=== PATIENT | female | born 2005 | race Caucasian/White ===

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

== ENCOUNTER 2024-05-31 23:06 | Emergency (ER) | payer OTHER, SELFPAY ==
[2024-05-31 23:34] VITALS: BP 114/53; PULSE 62; RESP 16; TEMP 36.6; O2SAT 99; BMI 30.2
[2024-06-01 00:21] LABS: MANUAL DIFF FLAG NO
[2024-06-01 00:22] LABS: Basophils Absolute Auto 0.1 X10*3/uL (0.0-0.2); Basophils Percent Auto 0.5 % (0-2); Eosinophils Absolute Auto 0.3 X10*3/uL (0.0-0.4); Eosinophils Percent Auto 3.2 % (0-4); Hematocrit 37.4 % (37.0-47.0); Hemoglobin 12.9 g/dl (12.0-16.0); Imm Gran Abs Auto 0.02 X10*3/uL (0.00-0.03); Imm Gran Pct Auto 0.2 % (0.0-0.4); Lymphocytes Absolute Auto 1.7 X10*3/uL (1.2-4.9); Lymphocytes Percent Auto 18.2 % (20-40); Mean Corpuscular HGB Conc 34.5 g/dl (31.0-35.0); Mean Corpuscular Hemoglobin 30.6 pg (27.0-33.0); Mean Corpuscular Volume 88.8 fL (80.0-98.0); Mean Platelet Volume 9.7 fL (9.4-12.3); Monocytes Absolute Auto 0.3 X10*3/uL (0.1-1.2); Monocytes Percent Auto 3.6 % (2-11); Neutrophils Absolute Auto 6.8 x10*3/uL (2.0-8.3); Neutrophils Percent Auto 74.3 % (45-73); Platelet Count 259 X10*3/uL (160-400); Red Blood Count 4.21 X10*6/uL (4.20-5.50); Red Cell Distribution Width 11.9 % (11.0-16.0); White Blood Count 9.1 X10*3/uL (4.8-10.8)
[2024-06-01 00:58] LABS: Alanine Aminotransferase 19 U/L (0-31); Albumin Level 4.3 g/dL (3.5-5.0); Alkaline Phosphatase 65 U/L (39-117); Anion Gap 14 (12-20); Aspartate Amino Transferase 20 U/L (5-31); Bilirubin Total 0.4 mg/dL (0.0-1.0); Blood Urea Nitrogen 20 mg/dL (9-16); Calcium 9.8 mg/dL (8.4-10.2); Carbon Dioxide 23 mmol/L (22-29); Chloride 109 mmol/L (96-108); Creatinine Clr Calc Pharmacy 93.3; Estimated Glomerular Filt Rate > 60; Glucose Random 108 mg/dL (60-115); Lipase 28 U/L (8-78); Potassium 4.1 mmol/L (3.3-5.1); Sodium 142 mmol/L (135-145); Total Protein 7.6 g/dL (6.5-8.0)
[2024-06-01 01:02] LABS: HCG Quantitative < 2 mIU/mL
--- NOTE | 2024-06-01 01:06 | MHC.EDTECH ---
this tech assumed care @[id number]
[2024-06-01 01:07] LABS: Color Urine Yellow; Glucose Urine UA Negative (Negative); Leukocyte Esterase Urine Negative (Negative); Nitrite Urine Negative (Negative); PH 6.5 (5.0-9.0); Specific Gravity - Urine >= 1.030 (1.005-1.025); Urine Blood Negative (Negative); Urine Ketones 40 mg/dL (Negative); Urine Protein Negative (Neg-Trace)
[2024-06-01 01:08] LABS: Appearance Urine Clear
[2024-06-01 01:09] LABS: Bacteria Urine None Seen (None Seen); Hyaline Casts Urine 0-2 /LPF (0-2); RBC Urine 0-2 /HPF (0-2); Squamous Epithelial Cell Urine 0-2 /HPF (0-2); WBC Urine 0-5 /HPF (0-5)
--- NOTE | 2024-06-01 01:25 | PC.NURSE ---
[facility] pharmacy called x2 dt pyxsis issues. Not populating second bag of potassium. tw has to override to remove second bag
[2024-06-01 01:28] VITALS: BP 109/60; PULSE 68; RESP 17; TEMP 36.6; O2SAT 97
--- NOTE | 2024-06-01 01:34 | MHC.EDTECH ---
pt changed over and placed on environmental monitoring specialist r/t her abdominal pain
--- NOTE | 2024-06-01 01:42 | PC.NURSE ---
pt sitting comfortable in no acute distress. vss. reports last vomiting 2 hours ago. Has not vomited since. no bout of diarrheas.
--- NOTE | 2024-06-01 01:46 | ED_ITS ---
HPI - Abdominal Pain General Chief Complaint: Abdominal Pain Stated Complaint: stomach pain Time Seen by Provider: 06/01/24 01:45 Source: patient Mode of arrival: ambulatory Limitations: no limitations History of Present Illness ED Provider: HPI narrative: Patient complaining of epigastric pain after eating spaghetti at 20:30 vomited 4 times no history of similar pain in the past took Pepto-Bismol with no relief Related Data Previous Rx's ?Medication ?Instructions ?Recorded pantoprazole 20 mg tablet,delayed 20 mg PO DAILY #14 tabs 03/03/21 release (Protonix) omeprazole 20 mg capsule,delayed 20 mg PO DAILY #30 caps 06/01/24 release Allergies Allergy/AdvReac Type Severity Reaction Status Date / Time No Known Allergies Allergy Verified 05/31/24 23:37 Review of Systems Review of Systems Yes all other systems are reviewed and are negative [facility] Social History Social History Alcohol intake: never Patient Tobacco Use Status: Never used Tobacco Smoked in Last 30 Days: No Use of substances other than those prescribed or required for medical reasons: Yes Substance Use Type: Marijuana Last Used Substance: Days (ago) Advance Directives: No Advance Directives Information Provided: No Patient : No Physical Exam ED Vital Signs: Vital Signs - 24 hr 05/31/24 23:34 06/01/24 01:28 Temperature 97.9 F 97.9 F Pulse Rate 62 68 Respiratory Rate 16 17 Blood Pressure 114/53 L 109/60 Pulse Oximetry 99 97 Oxygen Delivery Method Room Air Room Air BMI result Body Mass Index 30.2 Appearance: Alert. Oriented X3. No acute distress. Eyes: No pallor or ENT: Pharynx normal. Oral Mucosa moist Neck: Normal inspection. Neck supple. CVS: Normal heart rate and rhythm. Pulses normal. Respiratory: No respiratory distress. Equal air entry bilateral, no wheezing/rales/rhonchi Abdomen: Soft and tenderness in epigastric right upper quadrant Bowel sounds are present, no mass palpable, no CVA tenderness Hernandez sign negative Skin: Skin warm and dry. Normal skin color. Normal skin turgor. Extremities: No lower extremity edema. No calf tenderness Neuro: Oriented X 3. No motor deficit. Medical Decision Making Medical Decision Making [facility] Narrative: Patient with epigastric pain with history of gastritis no history of gallstones bedside ultrasound was done no gallstones were seen no gallbladder thickening no tenderness while examining the gallbladder likely patient has had gastritis will discharge patient home on Prilosec Differential Diagnosis Differential Diagnoses: The differential diagnosis associated with the presentation includes Gastritis/pancreatitis/cholelithiasis Lab Data MDM Lab Attestation statement: I reviewed the patient's lab results. 06/01/24 00:17 06/01/24 00:17 Labs: Lab Results 06/01/24 06/01/24 Range/Units 00:17 00:48 WBC 9.1 (4.8-10.8) X10*3/uL RBC 4.21 (4.20-5.50) X10*6/uL Hgb 12.9 (12.0-16.0) g/dl Hct 37.4 (37.0-47.0) % MCV 88.8 (80.0-98.0) fL MCH 30.6 (27.0-33.0) pg MCHC 34.5 (31.0-35.0) g/dl RDW 11.9 (11.0-16.0) % Plt Count 259 (160-400) X10*3/uL MPV 9.7 (9.4-12.3) fL Immature Gran % (Auto) 0.2 (0.0-0.4) % Neut % (Auto) 74.3 H (45-73) % Lymph % (Auto) 18.2 L (20-40) % [place] % (Auto) 3.6 (2-11) % Eos % (Auto) 3.2 (0-4) % Baso % (Auto) 0.5 (0-2) % Lymph # (Auto) 1.7 (1.2-4.9) X10*3/uL [place] # (Auto) 0.3 (0.1-1.2) X10*3/uL Eos # (Auto) 0.3 (0.0-0.4) X10*3/uL Baso # (Auto) 0.1 (0.0-0.2) X10*3/uL Abs Immat Gran (auto) 0.02 (0.00-0.03) X10*3/uL Absolute Neuts (auto) 6.8 (2.0-8.3) x10*3/uL Absolute Nucleated RBC 0.000 (0.0-0.012) X10*3/uL Nucleated RBC % (auto) 0.0 (0.0-0.2) /100WBC Sodium 142 (135-145) mmol/L Potassium 4.1 (3.3-5.1) mmol/L Chloride 109 H (96-108) mmol/L Carbon Dioxide 23 (22-29) mmol/L Anion Gap 14 (12-20) BUN 20 H (9-16) mg/dL Creatinine 0.91 (0.5-1.4) mg/dL Estim Creat Clear Calc 93.3 Estimated GFR > 60 Random Glucose 108 (60-115) mg/dL Calcium 9.8 (8.4-10.2) mg/dL Total Bilirubin 0.4 (0.0-1.0) mg/dL AST 20 (5-31) U/L ALT 19 (0-31) U/L Alkaline Phosphatase 65 (39-117) U/L Total Protein 7.6 (6.5-8.0) g/dL Albumin 4.3 (3.5-5.0) g/dL Lipase 28 (8-78) U/L Beta HCG, Quant < 2 mIU/mL Urine Color Yellow Urine Appearance Clear Urine pH 6.5 (5.0-9.0) Ur Specific [place] >= 1.030 H (1.005-1.025) Urine Protein Negative (Neg-Trace) mg/dL Urine Glucose (UA) Negative (Negative) mg/dL Urine Ketones 40 (Negative) mg/dL Urine Blood Negative (Negative) Urine Nitrite Negative (Negative) Ur Leukocyte Esterase Negative (Negative) Urine RBC 0-2 (0-2) /HPF Urine WBC 0-5 (0-5) /HPF Ur Squamous Epith Cells 0-2 (0-2) /HPF Urine Bacteria None Seen (None Seen) Hyaline Casts 0-2 (0-2) /LPF Discharge Plan Discharge Clinical Impression: Acute gastritis Patient Disposition: Home, Self-Care Instructions: Gastritis (ED) Additional Instructions: Likely have gastritis no gallstones were seen in the ultrasound at bedside Drink plenty of fluids avoid fried foods Take acid medication as prescribed Prescriptions: New omeprazole 20 mg capsule,delayed release(DR/EC) 20 mg PO DAILY Qty: 30 0RF No Action pantoprazole [Protonix] 20 mg tablet,delayed release (DR/EC) 20 mg PO DAILY Qty: 14 0RF Print Language: Nigerien
[2024-06-01] MEDS: Magnesium Hydrox/Alum Hydrox 30 ML ORAL.SUSP PO (02:28)
[2024-06-01 02:30] VITALS: BP 102/61; PULSE 67; RESP 18; TEMP 36.4; O2SAT 100
== END 2024-06-01 02:44 | disposition home or self-care (01) ==
PROVIDERS: Emergency Provider Internal Medicine; PCP Pediatrics
DX: K29.70 Gastritis, unspecified, without bleeding (principal); R10.13 Epigastric pain; R11.10 Vomiting, unspecified
CPT/HCPCS: 36415; 80053; 81001; 83690; 84702; 85025; 99283; 99284

== ENCOUNTER 2024-06-04 20:45 | Emergency (ER) | payer OTHER, SELFPAY ==
--- NOTE | ~2024-06-04 | US_ITS ---
EXAMINATION: US ABDOMEN LIMITED CLINICAL INFORMATION: Abdominal pain. COMPARISON: None available. TECHNIQUE: Real-time imaging of the right upper quadrant abdominal viscera. FINDINGS: PANCREAS: Visualized portions are unremarkable. LIVER: The liver is normal in size. The liver contour is normal. Parenchymal echogenicity is normal. No focal hepatic lesion. There is no intrahepatic biliary duct dilatation seen. GALLBLADDER: The gallbladder is physiologically distended without evidence of stones, sludge, wall thickening or pericholecystic fluid. There is a 3 mm echogenic nonshadowing structure adherent to the gallbladder wall. COMMON BILE DUCT: Normal in caliber measuring 0.4 cm in diameter. RIGHT KIDNEY: No hydronephrosis. No renal calculi or focal parenchymal lesions. The kidney measures 10.1 cm in maximum dimension. FREE FLUID: None. US/US abdomen limited IMPRESSION: No gallstones or evidence for cholecystitis. 3 mm echogenic structure adherent to the gallbladder wall suggesting gallbladder polyp. Electronically signed by: Satish Wells MD 06/05/2024 12:33 AM GEM
[2024-06-04 21:02] VITALS: BP 127/66; PULSE 83; RESP 16; TEMP 36.6; O2SAT 97; BMI 28.5
[2024-06-04 21:18] LABS: MANUAL DIFF FLAG NO
[2024-06-04 21:19] LABS: Basophils Percent Auto 0.3 % (0-2); Eosinophils Absolute Auto 0.2 X10*3/uL (0.0-0.4); Eosinophils Percent Auto 2.9 % (0-4); Hematocrit 36.6 % (37.0-47.0); Hemoglobin 12.8 g/dl (12.0-16.0); Imm Gran Abs Auto 0.03 X10*3/uL (0.00-0.03); Imm Gran Pct Auto 0.4 % (0.0-0.4); Lymphocytes Percent Auto 25.7 % (20-40); Mean Corpuscular Hemoglobin 31.1 pg (27.0-33.0); Mean Corpuscular Volume 89.1 fL (80.0-98.0); Mean Platelet Volume 9.7 fL (9.4-12.3); Monocytes Absolute Auto 0.4 X10*3/uL (0.1-1.2); Monocytes Percent Auto 4.5 % (2-11); Neutrophils Absolute Auto 5.3 x10*3/uL (2.0-8.3); Neutrophils Percent Auto 66.2 % (45-73); Platelet Count 261 X10*3/uL (160-400); Red Blood Count 4.11 X10*6/uL (4.20-5.50); Red Cell Distribution Width 11.9 % (11.0-16.0); White Blood Count 7.9 X10*3/uL (4.8-10.8)
[2024-06-04 21:43] LABS: Alanine Aminotransferase 15 U/L (0-31); Albumin Level 4.3 g/dL (3.5-5.0); Alkaline Phosphatase 63 U/L (39-117); Anion Gap 11 (12-20); Aspartate Amino Transferase 17 U/L (5-31); Bilirubin Total 0.5 mg/dL (0.0-1.0); Blood Urea Nitrogen 12 mg/dL (9-16); Calcium 8.8 mg/dL (8.4-10.2); Carbon Dioxide 24 mmol/L (22-29); Chloride 108 mmol/L (96-108); Creatinine Clr Calc Pharmacy 85.2; Estimated Glomerular Filt Rate > 60; Glucose Random 106 mg/dL (60-115); Lipase 33 U/L (8-78); Magnesium 1.9 mg/dL (1.6-2.6); Potassium 3.5 mmol/L (3.3-5.1); Sodium 139 mmol/L (135-145); Total Protein 7.4 g/dL (6.5-8.0)
[2024-06-04 21:44] LABS: HCG Quantitative < 2 mIU/mL
[2024-06-04 22:02] LABS: Appearance Urine Clear; Color Urine Yellow; Glucose Urine UA Negative (Negative); Leukocyte Esterase Urine Negative (Negative); Nitrite Urine Negative (Negative); PH 6.5 (5.0-9.0); Urine Blood Negative (Negative); Urine Ketones Negative (Negative); Urine Protein Negative (Neg-Trace)
[2024-06-04 22:30] VITALS: BP 122/65; PULSE 78; RESP 20; TEMP 36.6; O2SAT 100
--- NOTE | 2024-06-04 22:34 | ED.ABDPAIN ---
HPI - Abdominal Pain General Chief Complaint: Abdominal Pain Stated Complaint: Abd Pain Time Seen by Provider: 06/04/24 22:22 Source: patient Mode of arrival: ambulatory Limitations: no limitations History of Present Illness ED Provider: HPI narrative: Patient's history of gastritis in the past not taking any medication was seen here 4 days ago for epigastric pain started on omeprazole and sucralfate patient continued to have pain in upper abdomen bedside ultrasound was done which was negative for gallstones no fever no chills no urinary symptoms Related Data Previous Rx's ?Medication ?Instructions ?Recorded pantoprazole 20 mg tablet,delayed 20 mg PO DAILY #14 tabs 03/03/21 release (Protonix) omeprazole 20 mg capsule,delayed 20 mg PO DAILY #30 caps 06/01/24 release omeprazole 40 mg capsule,delayed 40 mg PO DAILY #30 caps 06/04/24 release ondansetron 4 mg disintegrating 4 mg PO Q6-8H PRN nausea and 06/04/24 tablet vomiting #15 tabs Allergies Allergy/AdvReac Type Severity Reaction Status Date / Time No Known Allergies Allergy Verified 06/04/24 21:09 Review of Systems Review of Systems Yes all other systems are reviewed and are negative [facility] Social History Social History Alcohol intake: never Patient Tobacco Use Status: Never used Tobacco Smoked in Last 30 Days: No Substance Use Type: Marijuana Substance Use Frequency: Weekly Advance Directives: No Advance Directives Information Provided: Yes Do you have a plan to hurt others: No Plan Patient : No Physical Exam ED Vital Signs: Vital Signs - 24 hr 06/04/24 21:02 06/04/24 22:30 06/04/24 23:52 Temperature 97.8 F 97.9 F 98.5 F Pulse Rate 83 78 63 Respiratory Rate 16 20 16 Blood Pressure 127/66 122/65 109/72 Pulse Oximetry 97 100 99 Oxygen Delivery Method Room Air Room Air Room Air 06/05/24 00:26 Temperature 98.5 F Pulse Rate 63 Respiratory Rate 16 Blood Pressure 109/72 Pulse Oximetry 99 Oxygen Delivery Method Room Air BMI result Body Mass Index 28.5 Appearance: Alert. Oriented X3. No acute distress. Eyes: No pallor or icterus ENT: Pharynx normal. Oral Mucosa moist Neck: Normal inspection. Neck supple. CVS: Normal heart rate and rhythm. Pulses normal. Respiratory: No respiratory distress. Equal air entry bilateral, no wheezing/rales/rhonchi Abdomen: Soft and tenderness right upper quadrant in the epigastric area no rebound tenderness or guarding Bowel sounds are present, no mass palpable, no CVA tenderness Skin: Skin warm and dry. Normal skin color. Normal skin turgor. Extremities: No lower extremity edema. No calf tenderness Neuro: Oriented X 3. No motor deficit. Medical Decision Making Medical Decision Making [facility] Narrative: Patient's gastritis ultrasound negative for gallstones showed small polyp labs are stable will discharge patient Differential Diagnosis Differential Diagnoses: The differential diagnosis associated with the presentation includes Gastritis/pancreatitis/hiatal hernia Lab Data [facility] Lab Attestation statement: I reviewed the patient's lab results. 06/04/24 21:14 06/04/24 21:14 Labs: Lab Results 06/04/24 06/04/24 Range/Units 21:14 21:49 WBC 7.9 (4.8-10.8) X10*3/uL RBC 4.11 L (4.20-5.50) X10*6/uL Hgb 12.8 (12.0-16.0) g/dl Hct 36.6 L (37.0-47.0) % MCV 89.1 (80.0-98.0) fL MCH 31.1 (27.0-33.0) pg MCHC 35.0 (31.0-35.0) g/dl RDW 11.9 (11.0-16.0) % Plt Count 261 (160-400) X10*3/uL MPV 9.7 (9.4-12.3) fL Immature Gran % (Auto) 0.4 (0.0-0.4) % Neut % (Auto) 66.2 (45-73) % Lymph % (Auto) 25.7 (20-40) % [place] % (Auto) 4.5 (2-11) % Eos % (Auto) 2.9 (0-4) % Baso % (Auto) 0.3 (0-2) % Lymph # (Auto) 2.0 (1.2-4.9) X10*3/uL [place] # (Auto) 0.4 (0.1-1.2) X10*3/uL Eos # (Auto) 0.2 (0.0-0.4) X10*3/uL Baso # (Auto) 0.0 (0.0-0.2) X10*3/uL Abs Immat Gran (auto) 0.03 (0.00-0.03) X10*3/uL Absolute Neuts (auto) 5.3 (2.0-8.3) x10*3/uL Absolute Nucleated RBC 0.000 (0.0-0.012) X10*3/uL Nucleated RBC % (auto) 0.0 (0.0-0.2) /100WBC Sodium 139 (135-145) mmol/L Potassium 3.5 (3.3-5.1) mmol/L Chloride 108 (96-108) mmol/L Carbon Dioxide 24 (22-29) mmol/L Anion Gap 11 L (12-20) BUN 12 (9-16) mg/dL Creatinine 0.97 (0.5-1.4) mg/dL Estim Creat Clear Calc 85.2 Estimated GFR > 60 Random Glucose 106 (60-115) mg/dL Calcium 8.8 D (8.4-10.2) mg/dL Magnesium 1.9 (1.6-2.6) mg/dL Total Bilirubin 0.5 (0.0-1.0) mg/dL AST 17 (5-31) U/L ALT 15 (0-31) U/L Alkaline Phosphatase 63 (39-117) U/L Total Protein 7.4 (6.5-8.0) g/dL Albumin 4.3 (3.5-5.0) g/dL Lipase 33 (8-78) U/L Beta HCG, Quant < 2 mIU/mL Urine Color Yellow Urine Appearance Clear Urine pH 6.5 (5.0-9.0) Ur Specific [place] 1.020 (1.005-1.025) Urine Protein Negative (Neg-Trace) mg/dL Urine Glucose (UA) Negative (Negative) mg/dL Urine Ketones Negative (Negative) mg/dL Urine Blood Negative (Negative) Urine Nitrite Negative (Negative) Ur Leukocyte Esterase Negative (Negative) Discharge Plan Discharge Clinical Impression: Acute gastritis Patient Disposition: Home, Self-Care Instructions: Gastritis (ED) Additional Instructions: Increase the dose of omeprazole to 40 mg daily Continue sucralfate Zofran for nausea as prescribed Prescriptions: New omeprazole 40 mg capsule,delayed release(DR/EC) 40 mg PO DAILY Qty: 30 0RF ondansetron 4 mg tablet,disintegrating 4 mg PO Q6-8H PRN (Reason: nausea and vomiting) Qty: 15 0RF No Action pantoprazole [Protonix] 20 mg tablet,delayed release (DR/EC) 20 mg PO DAILY Qty: 14 0RF omeprazole 20 mg capsule,delayed release(DR/EC) 20 mg PO DAILY Qty: 30 0RF Interventions: ED Discharge Assessment Last Done: 06/05/24 00:26 Discharge Date/Time: 06/05/24 00:00 Print Language: Malawian
[2024-06-04 23:52] VITALS: BP 109/72; PULSE 63; RESP 16; TEMP 36.9; O2SAT 99
[2024-06-05 00:26] VITALS: BP 109/72; PULSE 63; RESP 16; TEMP 36.9; O2SAT 99
== END 2024-06-05 | disposition home or self-care (01) ==
PROVIDERS: Physician Assistant; Emergency Provider Internal Medicine; PCP Pediatrics
DX: K29.00 Acute gastritis without bleeding (principal); R10.2 Pelvic and perineal pain; Z79.899 Other long term (current) drug therapy
CPT/HCPCS: 36415; 76705; 80053; 81003; 83690; 83735; 84702; 85025; 99284

== ENCOUNTER 2024-06-30 11:13 | Emergency (ER) | payer OTHER, SELFPAY ==
--- NOTE | ~2024-06-30 | US_ITS ---
CLINICAL HISTORY: RUQ pain US abdomen limited with color Doppler Comparison: US/SR - US ABDOMEN LIMITED - 06/04/24 22:46 EST Findings: Common duct 4.0 mm diameter. Gallbladder is physiologically distended. No layering gallstones.Two and 3 mm gallbladder polyps. No pericholecystic fluid. Patient was tender over the gallbladder region. Impression: 1. No cholelithiasis. Patient was tender over the gallbladder region. 2. 2-3 mm gallbladder polyps. This document has been electronically signed by: Kwaku Barlow MD on 06/30/2024 17:41:34
[2024-06-30 11:16] VITALS: BP 113/58; PULSE 84; RESP 19; TEMP 36.6; O2SAT 98; BMI 30.2
--- NOTE | 2024-06-30 11:17 | ED.NAVMDI ---
HPI - Nausea/Vomiting/Diarrhea General Chief complaint: Abdominal Pain Stated complaint: stomach pain, throat pain Time Seen by Provider: 06/30/24 15:03 Source: patient and RN notes reviewed Mode of arrival: ambulatory Limitations: no limitations History of Present Illness ED Provider: Linnea Underwood PA-C [facility] Narrative: This is a 19-year-old female, with a history of GERD, who presents emergency department complaints of abdominal pain since yesterday. Patient states that yesterday she was eating seafood, and also drinking alcohol. She admits to drinking 2 cups of alcohol as well as 2 shots of hard liquor. She states that she has had burning sensation in her stomach with associated nausea and vomiting. She denies any fevers, chills, chest pain, shortness of breath, diarrhea. No sick contacts. MD elicited complaint: nausea, vomiting and abdominal pain Associated abdominal pain: Yes Location of pain: epigastric Quality: cramping and other (burning ) Exacerbating factors: none Relieving factors: none Associated symptoms: denies other symptoms Related Data Previous Rx's ?Medication ?Instructions ?Recorded pantoprazole 20 mg tablet,delayed 20 mg PO DAILY #14 tabs 03/03/21 release (Protonix) omeprazole 20 mg capsule,delayed 20 mg PO DAILY #30 caps 06/01/24 release omeprazole 40 mg capsule,delayed 40 mg PO DAILY #30 caps 06/04/24 release ondansetron 4 mg disintegrating 4 mg PO Q6-8H PRN nausea and 06/04/24 tablet vomiting #15 tabs omeprazole 20 mg capsule,delayed 20 mg PO DAILY 30 days #30 caps 06/30/24 release ondansetron 4 mg disintegrating 4 mg PO Q6-8H PRN nausea and 06/30/24 tablet vomiting #10 tabs Allergies Allergy/AdvReac Type Severity Reaction Status Date / Time No Known Allergies Allergy Verified 06/30/24 11:19 Review of Systems Review of Systems: Yes all other systems are reviewed and are negative Constitutional: Constitutional: Reports as per [facility] Social History Social History Alcohol intake: never Patient Tobacco Use Status: Never used Tobacco Substance Use Type: Marijuana Physical Exam Vital Signs: Vital Signs: Last Vital Signs Temp 98.5 F 06/30/24 19:46 Pulse 83 06/30/24 19:46 Resp 19 06/30/24 19:46 BP 123/69 06/30/24 19:46 Pulse Ox 100 06/30/24 19:46 O2 Del Method Room Air 06/30/24 19:46 BMI result Body Mass Index 30.2 Const: General: cooperative, comfortable and no acute distress Orientation/consciousness: patient oriented x3 Limitations: no limitations HEENT: Head: Yes normal to inspection, Yes normocephalic and Yes atraumatic Ears: hearing grossly normal bilaterally General nose exam: Normal external nose present Face and sinus: Yes normal facial exam Mouth: Normal oral and palatal mucosa present, oropharynx normal and moist mucous membranes Throat: Yes posterior oropharynx normal Eyes: General: appearance normal, both eyes and all related structures Eyelids: Yes eyelids normal Conjunctivae: conjunctivae normal Sclerae: sclerae normal Pupils: Equal, round and reactive pupils present EOM: EOMs intact bilaterally Neck: Neck: Yes normal visual inspection, Yes full ROM and Yes no lymphadenopathy Lymphatic: no lymphadenopathy noted Chest: Chest palpation & inspection: normal inspection of the chest Resp: Effort & Inspection: normal respiratory effort and able to speak in complete sentences Auscultation: clear to auscultation bilaterally, no crackles, no rales, no rhonchi and no wheezes Cardio: Rate: regular rate Rhythm: regular rhythm Heart sounds: S1 normal heart sound present and S2 normal heart sound present GI: Other: Abdomen is soft, with tenderness palpation in the epigastric and right upper quadrant region. No rebound or guarding. Negative Hernandez's sign Inspection: Yes normal to inspection Skin: General skin exam: no rashes or lesions noted Trauma: no lacerations or abrasions Wounds: no wounds Neuro: General: patient oriented x3 and moves all extremities Cranial nerves: Yes Equal, round and reactive pupils present Extrem: General: Yes normal to inspection Right upper extremity: normal to inspection Left upper extremity: normal to inspection Right lower extremity: normal to inspection Left lower extremity: normal to inspection Course Course Course Narrative: This is a Rapid Medical Examination (RME) performed by Hai Velasquez PA-C in triage. Full HPI, ROS, assessment and treatment plan per primary provider in the Main ED. 19 yo female here for eval of N/V and epigastric abd pain x24 hours after eating seafood yesterday. her family ate the same meal however she is the only one with symptoms. hx gastritis - seen in ED 3x last month for this. pain semi-improved after taking her omeprazole this morning. also endorses throat discomfort. no known allergy to seafood - has consumed it in the past w/o reaction. + posterior oropharynx wnl. no edema, uvula midline, controlling secretions and speaking in complete sentences. Plan: labs, ua, viral swabs Reevaluation(s) Reevaluation #1: Ultrasound returns, no cholelithiasis, 2-3 mm gallbladder polyp seen. Patient initially was treated with GI cocktail, which she drank too quickly an ultimately vomited immediately after. She was given Benadryl, Reglan, as well as a dose of Zofran. Time: 17:00 Reevaluation #2: Repeat GI cocktail was administered to patient, she is feeling much better, symptoms have improved. Discussed with patient that she likely has an exacerbation of her acute gastritis. Advised to advance diet slowly, avoid alcohol, as well as acidic foods. She understands and agrees with plan. She will follow-up with your primary care physician. Time: 18:58 Medications Administered Discontinued Medications Generic Name Dose Route Start Last Admin Trade Name Freq PRN Reason Stop Dose Admin Acetaminophen 975 mg 06/30/24 14:58 06/30/24 15:32 Acetaminophen 325 Mg Tablet PO 06/30/24 14:59 975 mg ONCE ONE Administration Al Hydroxide/Mg Hydroxide 30 ml 06/30/24 16:36 06/30/24 16:42 Magnesium Hydrox/Alum Hydrox 30 Ml Oral.Susp PO 06/30/24 16:37 30 ml ONCE ONE Administration Al Hydroxide/Mg Hydroxide 30 ml 06/30/24 18:04 06/30/24 18:18 Magnesium Hydrox/Alum Hydrox 30 Ml Oral.Susp PO 06/30/24 18:05 30 ml ONCE ONE Administration Diphenhydramine HCl 50 mg 06/30/24 15:16 06/30/24 15:32 Diphenhydramine Hcl 50 Mg/Ml Vial IVPUSH 06/30/24 15:17 50 mg ONCE ONE Administration Famotidine 20 mg 06/30/24 16:36 06/30/24 16:42 Famotidine 20 Mg Tablet PO 06/30/24 16:37 20 mg ONCE ONE Administration Sodium Chloride 1,000 mls @ 999 mls/hr 06/30/24 15:16 06/30/24 16:46 Ns IV 06/30/24 16:16 Infused .Q1H1M ONE Infusion Sodium Chloride 1,000 mls @ 999 mls/hr 06/30/24 16:51 06/30/24 18:24 Ns IV 06/30/24 17:51 Infused .Q1H1M ONE Infusion Lidocaine HCl 15 ml 06/30/24 16:36 06/30/24 16:42 Lidocaine Hcl Viscous 2 % 15 Ml Solution MUCOUS MEM 06/30/24 16:37 15 ml ONCE ONE Administration Lidocaine HCl 15 ml 06/30/24 18:04 06/30/24 18:18 Lidocaine Hcl Viscous 2 % 15 Ml Solution MUCOUS MEM 06/30/24 18:05 15 ml ONCE ONE Administration Metoclopramide HCl 10 mg 06/30/24 15:16 06/30/24 15:32 Metoclopramide Hcl 10 Mg/2 Ml Vial IVPUSH 06/30/24 15:17 10 mg ONCE ONE Administration Ondansetron HCl 4 mg 06/30/24 16:50 06/30/24 16:56 Ondansetron Hcl 4 Mg/2 Ml Vial IVPUSH 06/30/24 16:51 4 mg ONCE ONE Administration Medical Decision Making Medical Decision Making [facility] Narrative: This is a 19-year-old female, with no known medical problems, who presents emergency department with complaints of epigastric pain, nausea, vomiting after eating seafood and drinking alcohol last night. On arrival, vital signs within normal limits. She is speaking in full sentences under no acute distress. Abdomen is soft, with tenderness to palpation in the epigastrium and right upper quadrant. No rebound or guarding. She has been seen in the emergency room multiple times for similar symptoms. She has a history of gastritis, symptoms feel similar. Differential Diagnosis Differential Diagnoses: The differential diagnosis associated with the presentation includes Gastritis, gastroenteritis, cholelithiasis, cholecystitis, alcohol abuse, food-borne illness Admission/Observation Consideration of admission/observation: Escalation of care including admission/observation considered Lab Data [facility] Lab Attestation statement: I reviewed the patient's lab results. No leukocytosis, stable H&H, Chemistry with mild hyperglycemia, mild elecation in liver enzymes, normal lipase 06/30/24 11:28 06/30/24 11:28 Labs: Lab Results 06/30/24 Range/Units 11:28 WBC 9.3 (4.8-10.8) X10*3/uL RBC 4.03 L (4.20-5.50) X10*6/uL Hgb 12.4 (12.0-16.0) g/dl Hct 36.1 L (37.0-47.0) % MCV 89.6 (80.0-98.0) fL MCH 30.8 (27.0-33.0) pg MCHC 34.3 (31.0-35.0) g/dl RDW 12.2 (11.0-16.0) % Plt Count 299 (160-400) X10*3/uL MPV 9.3 L (9.4-12.3) fL Immature Gran % (Auto) 0.3 (0.0-0.4) % Neut % (Auto) 87.2 H (45-73) % Lymph % (Auto) 10.2 L (20-40) % [place] % (Auto) 1.8 L (2-11) % Eos % (Auto) 0.1 (0-4) % Baso % (Auto) 0.4 (0-2) % Lymph # (Auto) 1.0 L (1.2-4.9) X10*3/uL [place] # (Auto) 0.2 (0.1-1.2) X10*3/uL Eos # (Auto) 0.0 (0.0-0.4) X10*3/uL Baso # (Auto) 0.0 (0.0-0.2) X10*3/uL Abs Immat Gran (auto) 0.03 (0.00-0.03) X10*3/uL Absolute Neuts (auto) 8.1 (2.0-8.3) x10*3/uL Absolute Nucleated RBC 0.000 (0.0-0.012) X10*3/uL Nucleated RBC % (auto) 0.0 (0.0-0.2) /100WBC Sodium 139 (135-145) mmol/L Potassium 3.6 (3.3-5.1) mmol/L Chloride 113 H (96-108) mmol/L Carbon Dioxide 22 (22-29) mmol/L Anion Gap 8 L (12-20) BUN 15 (9-16) mg/dL Creatinine 0.81 (0.5-1.4) mg/dL Estim Creat Clear Calc 104.0 Estimated GFR > 60 Random Glucose 124 H (60-115) mg/dL Calcium 9.5 D (8.4-10.2) mg/dL Magnesium 2.1 (1.6-2.6) mg/dL Total Bilirubin 0.4 (0.0-1.0) mg/dL AST 33 H (5-31) U/L ALT 59 H (0-31) U/L Alkaline Phosphatase 69 (39-117) U/L Total Protein 7.6 (6.5-8.0) g/dL Albumin 4.3 (3.5-5.0) g/dL Lipase 22 (8-78) U/L Beta HCG, Quant < 2 mIU/mL Urine Color Yellow Urine Appearance Clear Urine pH >= 9.0 (5.0-9.0) Ur Specific [place] 1.020 (1.005-1.025) Urine Protein 30 (1+) H (Neg-Trace) mg/dL Urine Glucose (UA) Negative (Negative) mg/dL Urine Ketones Negative (Negative) mg/dL Urine Blood Negative (Negative) Urine Nitrite Negative (Negative) Ur Leukocyte Esterase Trace H (Negative) Urine RBC 0-2 (0-2) /HPF Urine WBC 6-10 H (0-5) /HPF Ur Squamous Epith Cells 6-10 (0-2) /HPF Urine Bacteria None Seen (None Seen) Hyaline Casts 0-2 (0-2) /LPF Ethyl Alcohol < 10 mg/dL Influenza Type A (PCR) NEGATIVE (Negative) Influenza Type B (PCR) NEGATIVE (Negative) RSV RNA Qual (PCR) NEGATIVE (Negative) SARS-CoV-2 RNA (RT-PCR) NEGATIVE (Negative) Radiology Impression Discussion of test interpretation with radiology: I have reviewed the radiologist's reading. Radiologist Impression: Common duct 4.0 mm diameter. Gallbladder is physiologically distended. No layering gallstones.Two and 3 mm gallbladder polyps. No pericholecystic fluid. Patient was tender over the gallbladder region. Impression: 1. No cholelithiasis. Patient was tender over the gallbladder region. 2. 2-3 mm gallbladder polyps. This document has been electronically signed by: Kwaku Barlow MD on 06/30/2024 17:41:34 Dictated By: Kwaku Barlow MD Discharge Plan Discharge Clinical Impression: Gastritis Patient Disposition: Home, Self-Care Instructions: Gastritis (ED) Additional Instructions: You were seen in the emergency department due to abdominal pain. Your ultrasound showed gallbladder polyps, however did not show any evidence of gallstones. Please stick to a bland diet, avoid spicy, fried, alcohol as this can worsen your symptoms. You need to follow-up with the GI specialist/PCP to have this better managed. Continue the omeprazole at home. Continue taking Zofran as needed for nausea and vomiting. If any new or worsening symptoms occur including but not limited to worsening pain, inability to eat or drink, please seek emergent care. Prescriptions: New omeprazole 20 mg capsule,delayed release(DR/EC) 20 mg PO DAILY 30 Days Qty: 30 0RF ondansetron 4 mg tablet,disintegrating 4 mg PO Q6-8H PRN (Reason: nausea and vomiting) Qty: 10 0RF No Action pantoprazole [Protonix] 20 mg tablet,delayed release (DR/EC) 20 mg PO DAILY Qty: 14 0RF omeprazole 20 mg capsule,delayed release(DR/EC) 20 mg PO DAILY Qty: 30 0RF omeprazole 40 mg capsule,delayed release(DR/EC) 40 mg PO DAILY Qty: 30 0RF ondansetron 4 mg tablet,disintegrating 4 mg PO Q6-8H PRN (Reason: nausea and vomiting) Qty: 15 0RF Interventions: ED Discharge Assessment Last Done: 06/30/24 19:46 Discharge Date/Time: 06/30/24 19:40 Print Language: Upper Sorbian
[2024-06-30 11:33] LABS: MANUAL DIFF FLAG NO
[2024-06-30 11:35] LABS: Basophils Percent Auto 0.4 % (0-2); Eosinophils Percent Auto 0.1 % (0-4); Hematocrit 36.1 % (37.0-47.0); Hemoglobin 12.4 g/dl (12.0-16.0); Imm Gran Abs Auto 0.03 X10*3/uL (0.00-0.03); Imm Gran Pct Auto 0.3 % (0.0-0.4); Lymphocytes Percent Auto 10.2 % (20-40); Mean Corpuscular HGB Conc 34.3 g/dl (31.0-35.0); Mean Corpuscular Hemoglobin 30.8 pg (27.0-33.0); Mean Corpuscular Volume 89.6 fL (80.0-98.0); Mean Platelet Volume 9.3 fL (9.4-12.3); Monocytes Absolute Auto 0.2 X10*3/uL (0.1-1.2); Monocytes Percent Auto 1.8 % (2-11); Neutrophils Absolute Auto 8.1 x10*3/uL (2.0-8.3); Neutrophils Percent Auto 87.2 % (45-73); Platelet Count 299 X10*3/uL (160-400); Red Blood Count 4.03 X10*6/uL (4.20-5.50); Red Cell Distribution Width 12.2 % (11.0-16.0); White Blood Count 9.3 X10*3/uL (4.8-10.8)
[2024-06-30 11:37] LABS: Appearance Urine Clear; Color Urine Yellow; Glucose Urine UA Negative (Negative); Leukocyte Esterase Urine Trace (Negative); Nitrite Urine Negative (Negative); PH >= 9.0 (5.0-9.0); UMIC TRIGGER UACC YES; Urine Blood Negative (Negative); Urine Ketones Negative (Negative); Urine Protein 30 (1+) mg/dL (Neg-Trace)
[2024-06-30 11:39] LABS: Bacteria Urine None Seen (None Seen); Hyaline Casts Urine 0-2 /LPF (0-2); RBC Urine 0-2 /HPF (0-2); UACC Culture Trigger YES
[2024-06-30 11:59] LABS: Alanine Aminotransferase 59 U/L (0-31); Albumin Level 4.3 g/dL (3.5-5.0); Alkaline Phosphatase 69 U/L (39-117); Anion Gap 8 (12-20); Aspartate Amino Transferase 33 U/L (5-31); Bilirubin Total 0.4 mg/dL (0.0-1.0); Blood Urea Nitrogen 15 mg/dL (9-16); Calcium 9.5 mg/dL (8.4-10.2); Carbon Dioxide 22 mmol/L (22-29); Chloride 113 mmol/L (96-108); Estimated Glomerular Filt Rate > 60; Glucose Random 124 mg/dL (60-115); HCG Quantitative < 2 mIU/mL; Lipase 22 U/L (8-78); Magnesium 2.1 mg/dL (1.6-2.6); Potassium 3.6 mmol/L (3.3-5.1); Sodium 139 mmol/L (135-145); Total Protein 7.6 g/dL (6.5-8.0)
[2024-06-30 12:11] LABS: Influenza A PCR NEGATIVE (Negative); Influenza B PCR NEGATIVE (Negative); Resp Syncy Virus RNA Qual PCR NEGATIVE (Negative); SARS COV2 PCR INHOUSE NEGATIVE (Negative)
[2024-06-30 14:30] VITALS: BP 105/55; PULSE 67; RESP 16; TEMP 36.9; O2SAT 96
[2024-06-30] MEDS: Acetaminophen 325 MG TABLET 975 MG PO (15:32)
[2024-06-30] MEDS: diphenhydrAMINE HCL 50 MG/ML VIAL IVPUSH (15:32)
[2024-06-30] MEDS: 0.9 % Sodium Chloride 1,000 ML 999 ML IV ×2 (15:32→16:56)
[2024-06-30] MEDS: Metoclopramide HCl 10 MG/2 ML VIAL IVPUSH (15:32)
[2024-06-30] MEDS: Lidocaine HCl Viscous 2 % 15 ML SOLUTION MUCOUS MEM ×2 (16:42→18:18)
[2024-06-30] MEDS: Famotidine 20 MG TABLET PO (16:42)
[2024-06-30] MEDS: Magnesium Hydrox/Alum Hydrox 30 ML ORAL.SUSP PO ×2 (16:42→18:18)
[2024-06-30 16:44] VITALS: BP 123/69; PULSE 83; RESP 19; TEMP 36.9; O2SAT 100
[2024-06-30] MEDS: ondansetron HCL 4 MG/2 ML VIAL IVPUSH (16:56)
[2024-06-30 17:29] LABS: Ethanol < 10 mg/dL
--- NOTE | 2024-06-30 18:21 | PC.NURSE ---
Patient had previously thrown up whole dose of liquid lido & maalox, provider Linnea aware. Second attempt to administer meds completed, meds mixed together in 2 separate med cups, family at bedside to assist patient in taking small sips. Will re-eval in 20ish minutes.
[2024-06-30 19:46] VITALS: BP 123/69; PULSE 83; RESP 19; TEMP 36.9; O2SAT 100
== END 2024-06-30 19:40 | disposition home or self-care (01) ==
PROVIDERS: Physician Assistant Medical; Emergency Provider Emergency Medicine
DX: K29.70 Gastritis, unspecified, without bleeding (principal); R11.2 Nausea with vomiting, unspecified; Z03.818 Encounter for observation for suspected exposure to other biological agents ruled out; R10.13 Epigastric pain; F12.90 Cannabis use, unspecified, uncomplicated
CPT/HCPCS: 0241U; 36415; 76705; 80053; 80307; 81001; 83690; 83735; 84702; 85025; 87086; 96361; 96374; 96375; 99284; J1200; J2405; J2765

== ENCOUNTER → 2024-06-30 16:38 | Outpatient (BNV) | payer OTHER, SELFPAY | PROVIDERS: Emergency Provider Emergency Medicine; Visit Provider Radiology Diagnostic Radiology | DX: R10.11 Right upper quadrant pain (principal) | CPT/HCPCS: 76705 ==

== ENCOUNTER 2024-09-01 11:06 | Emergency (ER) | payer OTHER, SELFPAY ==
[2024-09-01 11:18] VITALS: BP 98/43; PULSE 94; RESP 18; TEMP 36.7; O2SAT 100; BMI 28.3
--- NOTE | 2024-09-01 11:18 | ED.GENADULT ---
HPI - General Adult General Chief complaint: Abdominal Pain Stated complaint: abd pain vomiting Time Seen by Provider: 09/01/24 12:38 Source: patient Mode of arrival: ambulatory Limitations: no limitations History of Present Illness ED Provider: Chauncey Owens DO HPI narrative: 19-year-old female with past medical history of GERD and cannabis use as well as known 2-3 mm gallbladder polyp without gallstones and multiple evaluations here for nausea and vomiting with suspected gastritis presents to the emergency department for upper abdominal pain after eating chicken wings last night with nonbilious/nonbloody vomiting episodes this morning starting at 09:30. she denies lower abdominal pain. She states she did have an episode of diarrhea which was nonbloody. She denies concern for sexually transmitted infection with no vaginal bleeding or abnormal vaginal discharge. She denies fevers over 100 degrees F. She states her symptoms are similar to previous episodes. She states she is attempting to quit cannabis use but still uses this, last episode yesterday. Related Data Previous Rx's ?Medication ?Instructions ?Recorded pantoprazole 20 mg tablet,delayed 20 mg PO DAILY #14 tabs 03/03/21 release (Protonix) omeprazole 20 mg capsule,delayed 20 mg PO DAILY #30 caps 06/01/24 release omeprazole 40 mg capsule,delayed 40 mg PO DAILY #30 caps 06/04/24 release ondansetron 4 mg disintegrating 4 mg PO Q6-8H PRN nausea and 06/04/24 tablet vomiting #15 tabs omeprazole 20 mg capsule,delayed 20 mg PO DAILY 30 days #30 caps 06/30/24 release ondansetron 4 mg disintegrating 4 mg PO Q6-8H PRN nausea and 06/30/24 tablet vomiting #10 tabs ondansetron 4 mg disintegrating 4 mg PO Q8H PRN nausea and 09/01/24 tablet vomiting #10 tabs Allergies Allergy/AdvReac Type Severity Reaction Status Date / Time No Known Allergies Allergy Verified 09/01/24 11:21 Review of Systems Review of Systems: Yes all other systems are reviewed and are negative PMFSH Social History Social History Alcohol intake: never Patient Tobacco Use Status: Never used Tobacco Smoked in Last 30 Days: No Use of substances other than those prescribed or required for medical reasons: No Substance Use Type: Marijuana Advance Directives: No Advance Directives Information Provided: No Patient : No Physical Exam ED Vital Signs: Vital Signs - 24 hr 09/01/24 11:18 09/01/24 13:34 09/01/24 14:17 Temperature 98.0 F 98.3 F 98.2 F Pulse Rate 94 70 78 Respiratory Rate 18 20 18 Blood Pressure 98/43 L 100/59 L 113/64 Pulse Oximetry 100 100 99 Oxygen Delivery Method Room Air Room Air Room Air BMI result Body Mass Index 28.3 Constitutional: Alert, oriented, speaking in full sentences , upon initial evaluation the patient is actively vomiting yellow emesis HEENT: Normocephalic, atraumatic. Eyes: PERRL, EOMI Neck: Supple, nontender Chest: No chest wall tenderness Respiratory: Lungs clear to auscultation, no increased work of breathing Cardio: Regular rate and rhythm, no murmur, 2+ radial and DP pulses symmetrically GI: Soft, nondistended, mildly tender diffusely Back: Normal range of motion, nontender Skin: No rash, no lesions Neuro: Alert and oriented to person, place and time, moves all 4 extremities, no focal deficits Extremities: No swelling or tenderness, full range of motion Psych: Calm, alert and cooperative, appropriate behavior Course Course Course Narrative: RME performed by Mary Escudero PA-C. Patient is a 19 year old assigned female at presenting to the emergency department with epigastric pain, nausea, and vomiting. Patient states that she has a history of gastritis and this seems to be a flare of that. Detailed physical exam and review of systems are deferred to the primary teaching assistant. Labs and swabs ordered. Patient placed back in the waiting room pending room availability and results. Medications Administered Discontinued Medications Generic Name Dose Route Start Last Admin Trade Name Freq PRN Reason Stop Dose Admin Al Hydroxide/Mg Hydroxide 30 ml 09/01/24 13:08 09/01/24 13:38 Magnesium Hydrox/Alum Hydrox 30 Ml Oral.Susp PO 09/01/24 13:09 30 ml ONCE ONE Administration Belladonna Alkaloids/Phenobarbital 10 ml 09/01/24 13:08 09/01/24 13:39 Phenobarb/Hyoscy/Atropine/Scop 10 Ml Elixir PO 09/01/24 13:09 10 ml ONCE ONE Administration Capsaicin 1 appl 09/01/24 14:13 09/01/24 14:21 Capsaicin 0.025% Cream 60 Gm Tube TOPICAL 09/01/24 14:14 1 appl ONCE ONE Administration Protocol Haloperidol Lactate 2.5 mg 09/01/24 14:11 09/01/24 14:14 Haloperidol Lactate 5 Mg/Ml Vial IVPUSH 09/01/24 14:12 2.5 mg ONCE ONE Administration Sodium Chloride 1,000 mls @ 999 mls/hr 09/01/24 13:00 09/01/24 14:16 Ns IV 09/01/24 14:00 Infused .Q1H1M LILIA Infusion Ondansetron HCl 4 mg 09/01/24 12:47 09/01/24 12:52 Ondansetron Hcl 4 Mg/2 Ml Vial IVPUSH 09/01/24 12:48 4 mg ONCE ONE Administration Potassium Chloride 40 meq 09/01/24 13:11 09/01/24 13:38 Potassium Chloride Er 20 Meq Tab.Er.Prt PO 09/01/24 13:12 40 meq ONCE ONE Administration Medical Decision Making Medical Decision Making [facility] Narrative: Patient presenting with acute episodes of nausea and vomiting with epigastric pain. Differential diagnosis includes gastritis, hyperemesis cannabinoid syndrome, much less likely peptic ulcer or biliary pathology. Also do not suspect pancreatitis. Symptoms have largely been controlled with IV fluids and IV ondansetron. She is mildly hypokalemic which will be replaced as well and we will trial a GI cocktail with and Maalox. Unremarkable lipase. Symptoms recurred after receiving Zofran and IV fluids. Given the consideration for hyperemesis cannabinoid syndrome, the patient was administered 2.5 mg of haloperidol IV as well as capsaicin ointment. She appears much more comfortable and reports feeling much more improved. Repeat examination shows no abdominal tenderness. The patient is mildly sedated from the haloperidol which is expected. After being observed a little bit longer we will pursue p.o. trial and likely discharge to home if she tolerates Oral fluids. Tolerated PO, ambulated well without difficulty. Appears much more improved. Admission/Observation Consideration of admission/observation: Escalation of care including admission/observation considered Lab Data [facility] Lab Attestation statement: I reviewed the patient's lab results. Unremarkable CBC, mild hypokalemia at 3.0 and mild metabolic acidosis with a bicarb of 17 and chloride elevated to 110, borderline elevated anion gap of 15 and borderline hypomagnesemia at 1.7 with largely unremarkable liver function tests and negative beta hCG quant. Negative respiratory swab. 09/01/24 11:30 09/01/24 11:30 Labs: Lab Results 09/01/24 09/01/24 Range/Units 11:30 12:53 WBC 7.8 (4.8-10.8) X10*3/uL RBC 4.19 L (4.20-5.50) X10*6/uL Hgb 12.7 (12.0-16.0) g/dl Hct 36.1 L (37.0-47.0) % MCV 86.2 (80.0-98.0) fL MCH 30.3 (27.0-33.0) pg MCHC 35.2 H (31.0-35.0) g/dl RDW 11.7 (11.0-16.0) % Plt Count 280 (160-400) X10*3/uL MPV 9.9 (9.4-12.3) fL Immature Gran % (Auto) 0.4 (0.0-0.4) % Neut % (Auto) 70.7 (45-73) % Lymph % (Auto) 20.9 (20-40) % [place] % (Auto) 4.7 (2-11) % Eos % (Auto) 2.8 (0-4) % Baso % (Auto) 0.5 (0-2) % Lymph # (Auto) 1.6 (1.2-4.9) X10*3/uL [place] # (Auto) 0.4 (0.1-1.2) X10*3/uL Eos # (Auto) 0.2 (0.0-0.4) X10*3/uL Baso # (Auto) 0.0 (0.0-0.2) X10*3/uL Abs Immat Gran (auto) 0.03 (0.00-0.03) X10*3/uL Absolute Neuts (auto) 5.5 (2.0-8.3) x10*3/uL Absolute Nucleated RBC 0.000 (0.0-0.012) X10*3/uL Nucleated RBC % (auto) 0.0 (0.0-0.2) /100WBC Sodium 139 (135-145) mmol/L Potassium 3.0 L (3.3-5.1) mmol/L Chloride 110 H (96-108) mmol/L Carbon Dioxide 17 L (22-29) mmol/L Anion Gap 15 (12-20) BUN 18 H (9-16) mg/dL Creatinine 1.14 (0.5-1.4) mg/dL Estim Creat Clear Calc 71.7 Estimated GFR > 60 Random Glucose 138 H (60-115) mg/dL Calcium 9.2 (8.4-10.2) mg/dL Magnesium 1.7 (1.6-2.6) mg/dL Total Bilirubin 0.5 (0.0-1.0) mg/dL AST 24 (5-31) U/L ALT 40 H (0-31) U/L Alkaline Phosphatase 61 (39-117) U/L Total Protein 7.6 (6.5-8.0) g/dL Albumin 4.3 (3.5-5.0) g/dL Lipase 30 (8-78) U/L Beta HCG, Quant < 2 mIU/mL Urine Color Yellow Urine Appearance Clear Urine pH >= 9.0 (5.0-9.0) Ur Specific [place] 1.020 (1.005-1.025) Urine Protein 30 (1+) H (Neg-Trace) mg/dL Urine Glucose (UA) Negative (Negative) mg/dL Urine Ketones 40 (Negative) mg/dL Urine Blood Negative (Negative) Urine Nitrite Negative (Negative) Ur Leukocyte Esterase Negative (Negative) Urine RBC 0-2 (0-2) /HPF Urine WBC 0-5 (0-5) /HPF Ur Squamous Epith Cells 0-2 (0-2) /HPF Urine Bacteria None Seen (None Seen) Hyaline Casts 0-2 (0-2) /LPF Influenza Type A (PCR) NEGATIVE (Negative) Influenza Type B (PCR) NEGATIVE (Negative) RSV RNA Qual (PCR) NEGATIVE (Negative) SARS-CoV-2 RNA (RT-PCR) NEGATIVE (Negative) Discharge Plan Discharge Clinical Impression: Nausea & vomiting Patient Disposition: Home, Self-Care Instructions: Acute Abdominal Pain (ED), Acute Nausea and Vomiting (ED) Additional Instructions: we evaluated you for nausea and vomiting. Your exam and vital signs as well as lab work are reassuring. We treated you with Zofran and IV fluids and after your vomiting returned we treated with haloperidol and capsaicin ointment. This seemed to help immensely. As discussed, your symptoms may be contributed by your use of marijuana and we agree with your plan to try to quit. This may help prevent further episodes of nausea vomiting in the future. You can try applying the capsaicin ointment once a day at home if this helps with recurrent symptoms. We also prescribed Zofran to take up to every 8 hours as needed for severe nausea recurrent vomiting. Please return if you are unable to tolerate any fluids by mouth, you develop fevers over 100 degrees F, worsening abdominal pain or any other acute concerns or changes. Prescriptions: New ondansetron 4 mg tablet,disintegrating 4 mg PO Q8H PRN (Reason: nausea and vomiting) Qty: 10 0RF No Action pantoprazole [Protonix] 20 mg tablet,delayed release (DR/EC) 20 mg PO DAILY Qty: 14 0RF omeprazole 20 mg capsule,delayed release(DR/EC) 20 mg PO DAILY Qty: 30 0RF omeprazole 40 mg capsule,delayed release(DR/EC) 40 mg PO DAILY Qty: 30 0RF ondansetron 4 mg tablet,disintegrating 4 mg PO Q6-8H PRN (Reason: nausea and vomiting) Qty: 15 0RF omeprazole 20 mg capsule,delayed release(DR/EC) 20 mg PO DAILY 30 Days Qty: 30 0RF ondansetron 4 mg tablet,disintegrating 4 mg PO Q6-8H PRN (Reason: nausea and vomiting) Qty: 10 0RF Print Language: Gabonese
[2024-09-01 11:35] LABS: MANUAL DIFF FLAG NO
[2024-09-01 11:39] LABS: Basophils Percent Auto 0.5 % (0-2); Eosinophils Absolute Auto 0.2 X10*3/uL (0.0-0.4); Eosinophils Percent Auto 2.8 % (0-4); Hematocrit 36.1 % (37.0-47.0); Hemoglobin 12.7 g/dl (12.0-16.0); Imm Gran Abs Auto 0.03 X10*3/uL (0.00-0.03); Imm Gran Pct Auto 0.4 % (0.0-0.4); Lymphocytes Absolute Auto 1.6 X10*3/uL (1.2-4.9); Lymphocytes Percent Auto 20.9 % (20-40); Mean Corpuscular HGB Conc 35.2 g/dl (31.0-35.0); Mean Corpuscular Hemoglobin 30.3 pg (27.0-33.0); Mean Corpuscular Volume 86.2 fL (80.0-98.0); Mean Platelet Volume 9.9 fL (9.4-12.3); Monocytes Absolute Auto 0.4 X10*3/uL (0.1-1.2); Monocytes Percent Auto 4.7 % (2-11); Neutrophils Absolute Auto 5.5 x10*3/uL (2.0-8.3); Neutrophils Percent Auto 70.7 % (45-73); Platelet Count 280 X10*3/uL (160-400); Red Blood Count 4.19 X10*6/uL (4.20-5.50); Red Cell Distribution Width 11.7 % (11.0-16.0); White Blood Count 7.8 X10*3/uL (4.8-10.8)
[2024-09-01 11:58] LABS: Alanine Aminotransferase 40 U/L (0-31); Albumin Level 4.3 g/dL (3.5-5.0); Alkaline Phosphatase 61 U/L (39-117); Anion Gap 15 (12-20); Aspartate Amino Transferase 24 U/L (5-31); Bilirubin Total 0.5 mg/dL (0.0-1.0); Blood Urea Nitrogen 18 mg/dL (9-16); Calcium 9.2 mg/dL (8.4-10.2); Carbon Dioxide 17 mmol/L (22-29); Chloride 110 mmol/L (96-108); Creatinine Clr Calc Pharmacy 71.7; Estimated Glomerular Filt Rate > 60; Glucose Random 138 mg/dL (60-115); Magnesium 1.7 mg/dL (1.6-2.6); Sodium 139 mmol/L (135-145); Total Protein 7.6 g/dL (6.5-8.0)
[2024-09-01 12:04] LABS: HCG Quantitative < 2 mIU/mL
[2024-09-01 12:14] LABS: Influenza A PCR NEGATIVE (Negative); Influenza B PCR NEGATIVE (Negative); Resp Syncy Virus RNA Qual PCR NEGATIVE (Negative); SARS COV2 PCR INHOUSE NEGATIVE (Negative)
--- OUTSIDE RECORDS SUMMARY | 2024-09-01 12:37 | XMS_ITS | Encounter Summary ---
Demographics Address [address] [place] [address] Home Phone Mobile Phone Preferred Language Czech Marital Status Unknown Judaism Affiliation Unknown Race Unknown Ethnic Group Unknown Author Organization [facility] Address [address] [place] [address] Phone Care Team Providers Care Warehouse Associate Driver Name Role Phone Jennifer Gannon MD Primary Care Provider [phone] Encounter Details Date Type Department Care Team (Late st Contact Info) Description 06/18/2015 Documentation [facility] [place] [place] Family Medicine [address] [place] [address] Family Medicine, Physician [facility] [place] [id number] Social History Tobacco Use Types Packs/Day Years Used Date Smoking Tobacco: Never Assessed Comments Unknown Sex and Gender Information Value Date Recorded Sex Assigned at Female 12/20/2019 11:06 AM EDT Legal Sex Female 4:52 PM EDT Gender Identity Female 12/20/2019 11:06 AM EDT Sexual Orientation Straight 12/20/2019 11 :06 AM EDT documented as of this encounter Plan of Treatment Not on file documented as of this encounter Visit Diagnoses Not on filedocumented in this encounter Care Teams Warehouse Associate Driver Relationship Specialty Start Date End Date Jennifer Gannon MD [address] [place] [address] PCP - General Pediatrics 11/16/19 08/30/24 documented as of this encounter
--- OUTSIDE RECORDS SUMMARY | 2024-09-01 12:38 | XMS_ITS | Encounter Summary ---
Demographics Address [address] [place] [address] Home Phone Mobile Phone Preferred Language Albanian Marital Status Unknown Christianity Affiliation Unknown Race Unknown Ethnic Group Unknown Author Organization [facility] Address [address] [place] [address] Phone Care Team Providers Care Erp Implementation Consultant Name Role Phone Jennifer Gannon MD Primary Care Provider [phone] Encounter Details Date Type Department Care Team (Late st Contact Info) Description 03/06/2012 Documentation [facility] [place] [address] [place] [address] Family Medicine, Physician [facility] [place] [id number] Social History Tobacco Use Types Packs/Day Years [...] on filedocumented in this encounter Care Teams Erp Implementation Consultant Relationship Specialty Start Date End Date Jennifer Gannon MD [address] [place] [address] PCP - General Pediatrics 11/16/19 08/30/24 documented as of this encounter
--- OUTSIDE RECORDS SUMMARY | 2024-09-01 12:38 | XMS_ITS | Encounter Summary ---
Demographics Address [address] [place] [address] Home Phone Mobile Phone Preferred Language Portuguese Marital Status Unknown Religion Affiliation Unknown Race Unknown Ethnic Group Unknown Author Organization [facility] Address [address] [place] [address] Phone Care Team Providers Care Partner Management Consultant Name Role Phone Unavailable Primary Care Provider Unavailabl e Reason for Visit * Reason Onset Date Comments Letter 08/31/2024 Encounter Details Date Type Department Care Team (Late st Contact Info) Description 08/31/2024 Telephone [facility] [place] [address] [place] [address] Jennifer Gannon MD [address] [place] [address] Letter Social History Tobacco Use Types Packs/Day Years Used Date Smoking Tobacco: Never Alcohol Use Standard Drinks/Week Comments No 0 (1 standard drink = 0.6 oz pur e alcohol) Hunger/Food Answer Date Recorded In the last 12 months, did y ou or your family ever eat less than you felt you should because there wasn't enough money for food? No 10/19/2023 Stable Housing Answer Date Recorded Are you worried that in the next 2 months you may not have stable housing? No 10/19/2023 Transportation Concerns Answer Date Rec orded In the last 12 months, have you or your family ever had to go without healthcare because you didn't have a way to get there? No 10/19/2023 Hazards in Home Answer Date Recorded Think about the place you li ve. Do you have problems with any of the following? Pests (mice or roaches), mold, no/not working smoke detectors, water leaks, no window guards. No 2023 Financing Utilities Answer Date Recorde d In the last 12 months, has t he electric, gas, oil, or water company threatened to shut off your services in your home? No 10/19/2023 Safety at Home Answer Date Recorded Are you or your family worried about feeling saf e in your home? No 10/19/2023 Outside Support Answer Date Recorded Do you feel that you need mo re support from other people or programs to help you care for yourself or your family? No 10/19/2023 Understanding Health Concerns Answer Da te Recorded Do you need help understandi ng your or your child's healthcare needs (diagnosis, medications, plan, etc.)? No 10/19/2023 Financing Health Concerns Answer Date R ecorded In the last 12 months, was t here a time when your child needed to see a doctor or get medications or supplies but could not because of cost? No 10/19/2023 Missing School or Work Answer Date Jimbo rded Did you or your child miss s chool or work because of a health problem that could have been avoided? No 10/19/2023 Child Education Answer Date Recorded Do you have concerns about y our/your child's learning or behavior in school, preschool, or daycare? No 10/19/2023 Comments No Sex and Gender Information Value Date Recorded Sex Assigned at Female 12/20/2019 11:06 AM EDT Legal Sex Female 4:52 PM EDT Gender Identity Female 12/20/2019 11:06 AM EDT Sexual Orientation Straight 12/20/2019 11 :06 AM EDT documented as of this encounter Miscellaneous Notes * Telephone Encounter - Janelle Gee - 08/31/2024 3:38 PM EDT Best Wishes Letter documented in this encounter Plan of Treatment Not on file documented as of this encounter Visit Diagnoses Not on filedocumented in this encounter
--- OUTSIDE RECORDS SUMMARY | 2024-09-01 12:38 | XMS_ITS | Clinical Summary ---
Demographics Address [address] [place] [address] Home Phone Mobile Phone Preferred Language Telugu Marital Status Unknown Pentecostal Affiliation Unknown Race Unknown Ethnic Group Unknown Author Organization [facility] Address [address] [place] [phone] Phone Care Team Providers Care Program Project Manager Name Role Phone Unavailable Primary Care Provider Unavailabl e Allergies No known active allergies Medications ondansetron ODT 4 MG disintegrating tabletIndications:N ausea and vomiting, unspecified vomiting type 4 Active omeprazole 20 MG delayed-release capsuleIndications: Acute epigastric pain Take 1 capsule (20 mg total) by mouth 2 (two) times a day. 4 Active cholecalciferol 25 MCG (1000 UT) tabletIndications:V itamin D deficiency Take 25 mcg by mouth daily. 90 tablet 3 4 06/11/20 25 Active Active Problems Problem Noted Date Diagnosed Date Acute epigastric pain 06/05/2024 Assessment & Plan (06/11/2024 10:21 AM EST): No longer having pain. Etiology unclear, but I wonder if it was stress causing her abd pain. Can continue the omeprazole, but recommended tdecreasing to qday in 1-2 weeks if still improved, then if still improved in another 1-2 weeks, to stop after that. Assessment & Plan (06/05/2024 4:03 PM EST): 5 days of epigastric abdominal pain with nausea, vomiting, and intermittent diarrhea that has not improved with 40 mg of prilosec per day. Multiple ER visits since 05/31. Significant pain on exam today. ?Pancreatitis. Expect called to ER. Patient sent to ER for further evaluation - recommend imaging. BMI (body mass index), pedia tric, 85% to less than 95% for age 1206/04/2022 Assessment & Plan (10/19/2023 1:45 PM EDT): Working out and working on a healthier diet. Will screen for DM, dyslipidemia with fasting labs and NAFLD with AST/ALT per AAP recs. Anxiety disorder 12/22/2020 Vitamin D deficiency 04/11/2020 Overview (06/11/2024): 04/09/20- vit D level = 13.7, started on 2000IU/day and to have lab re-checked ~06/08. Repeat was 26.7. 25 [place] vit D = 10.3 on 10/19/23. Vitamin D 2000IU/day prescribed and did take it. No longer taking vitamin D when seen on 06/11/2024, so Vitamin D 1000IU/day prescribed. Assessment & Plan (06/11/2024 10:19 AM EST): No longer taking vitamin D, so Vitamin D 1000IU/day prescribed. Assessment & Plan (10/19/2023 1:45 PM EDT): Not taking vitamin D, so will check level today as getting labs. Assessment & Plan (06/04/2022 1:51 PM EST): Vitamin D level was low at 13.7 in 2019. Repeat was 26.7. Repeat level today. Assessment & Plan (12/19/2020 12:11 PM EDT): Never had vitamin D level re-checked as planned, so will check vitamin D level today. Decreased vision 12/19/2019 Overview (12/19/2019): Wears glasses Assessment & Plan (06/04/2022 1:48 PM EST): Hasn't been wearing her glasses but still needs them. Due to go back to the eye doctor. Assessment & Plan (12/19/2020 10:09 AM EDT): Nl vision with glasses today. Assessment & Plan (12/20/2019 11:09 AM EDT): Failed vision (borderline) today. Discussed need for regular vision exams and to wear glasses (doesn't always wear them). 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 Vit D deficiency 03/2020. 06/04/2022 Eating healthier and exercising 4 times a week. Weight down 13 lbs in one year. Assessment & Plan (12/19/2020 12:12 PM EDT): Continue to encourage healthy habits, and she is working on healthier diet choices. Assessment & Plan (12/20/2019 11:09 AM EDT): Discussed diet (drink water, more veggies, less junk) and exercise. Will screen for DM, dyslipidemia with fasting labs and NAFLD with AST/ALT per AAP recs. Plan to screen q2yrs if continues to be obese. Encounters Date Type Department Care Team Description 09/01/2024 11:06 AM EDT - Present Hospital Encounter [facility] - Patient Ping 08/31/2024 Telephone [facility] [place] [address] [place] [address] Jennifer Gannon MD Letter 06/30/2024 11:13 AM EST - 06/30/2024 7:40 PM EST Hospital Encounter [facility] - Patient Ping 06/14/2024 Telephone [facility] [place] [address] [place] [address] Mariposa Valdovinos Gastro referral 06/11/2024 9:30 AM EST Office Visit [facility] [address] [place] [address] Jennifer Gannon MD Epigastric pain (Primary Dx); Early satiety; Weight loss; Vitamin D deficiency; Acute epigastric pain 06/06/2024 1:36 PM EST - 06/06/2024 7:32 PM EST Hospital Encounter [facility] - Patient Ping 06/06/2024 Telephone [facility] [address] [place] [address] Isis Mcclain LPN ER f/u 06/05/2024 4:29 PM EST - 06/05/2024 8:54 PM EST Hospital Encounter [facility] - Patient Ping 06/05/2024 3:00 PM EST Office Visit [address] [address] Anjelica Wilson MD Acute epigastric pain (Primary Dx); Nausea and vomiting, unspecified vomiting type 06/05/2024 Telephone [facility] [address] [place] [address] Isis Mcclain LPN ER f/u 06/04/2024 8:45 PM EST - 06/05/2024 Hospital Encounter [facility] - Patient Ping from Last 3 Months Immunizations Immunization Administration Dates Next Due COVID-19 Pfizer, bivalent, 12+ years 06/04/2022 DTaP 5 02/01/2008, 5,01/02/2004,11/07,2003 HPV Vaccine 9 Valent 10/17/2015 HPV, Quadrivalent 10/15/2014 Hep A, ped/adol 10/17/2015,10/15/2014 Hep B, ped/adol 05/01/2004,01/02/2004,2003 Hib (HbOC) 11/03/2004,01/02/2004 Hib (PRP-T) 2003,2003 IPV 02/01/2008, 4,2003,08/09 Influenza Split 07/29/2011 Influenza, injectable, quadr ivalent, preservative free 10/19/2023,06/04/2022,07/29/2021,06/01,06/26/2018 Influenza, injectable, trivalent 05/06/2006,04/20 Influenza, intranasal, trivalent 03/10/2010,09/0 02/2010 MMR 02/01/2008,08/05/2004 Meningococcal B Trumenba 10/19/2023,06/04/2022 Meningococcal Conj (Menactra) MCV4P 12/20/2019,0 10/15/2014 Pneumococcal Conjugate 11/03/2004,2003,2003,08/09 Tdap 10/15/2014 Varicella 02/01/2008,08/05/2004 Family History Medical History Relation Name Comments No Known Problems Brother 1 Rei Birch Diabetes Maternal Grandfather No Known Problems Mother Israel Caro No Known Problems Sister 1 Tracy Molina No Known Problems Sister 2 Miguelina Molina No Known Problems Sister 3 Lavinia Mar Relation Name Status Comments Brother 1 Rei Birch Alive Brother: Alive and well, Alive and well Brother 2 Brother: Alive and well, Alive and well Father Maternal Grandfather Alive Maternal Grandmother Alive Mother Israel Caro Alive Other No family histo ry of Sudden /[place] under 55, No family history of Hyperlipidemia Sister 1 Tracy Molina Alive Sister: Alive a nd well, Alive and well, Alive and well Sister 2 Miguelina Molina Alive Sister: Alive and well, Alive and well, Alive and well Sister 3 Lavinia Mar Alive Sister: Ali ve and well, Alive and well, Alive and well Social History Tobacco Use Types Packs/Day Years Used Date Smoking Tobacco: Never Tobacco Cessation:Counseling Given: Yes Alcohol Use Standard Drinks/Week Comments No 0 [...] Orientation Straight 12/20/2019 11 :06 AM EDT Last Filed Vital Signs Vital Sign Reading Time Taken Comments Blood Pressure 109/70 06/11/2024 9:39 AM EST Pulse 84 06/11/2024 9:39 AM EST Temperature 36.7 ??C (98.1 ??F) 06/05/2024 3:15 PM ES T Respiratory Rate - - Oxygen Saturation - - Inhaled Oxygen Concentration - - Weight 72 kg (158 lb 12.8 oz) 06/11/2024 9:39 AM EST Height 159.3 cm (5' 2.72 ) 06/11/2024 9:39 AM ES T Body Mass Index 28.38 06/11/2024 9:39 AM EST Plan of Treatment Health Maintenance Due Date Last Done Comments Influenza Vaccines (#1) 2024 10/19/19 24, 06/04/2022, 07/29/2021, Additional history exists COVID-19 Vaccine (2023-2 5 season) 2024 06/04/2022, 07/29/2021, 12/09/2020, Additional history exists Chlamydia and Gonorrhea Screening 06/20/2024 10/19/2023, 06/04/2022, 12/20/2019, Additional history exists DTaP,Tdap,and Td Vaccines (7 - Td or Tdap) 10/15/2024 10/15/2014, 02/01/2008, 02/03/2005, Additional history exists Hepatitis B Vaccines Completed 05/01/2004, 01/02/2004, 2003 HIB Vaccines Completed 11/03/2004, 12/18, 2003, Additional history exists Pneumococcal Vaccine Completed 11/03/2004, 01/02/2004, 2003, Additional history exists IPV Vaccines Completed 02/01/2008, 04/20, 2003, Additional history exists MMR Vaccines Completed 02/01/2008, 08/05/2004 Varicella Vaccines Completed 02/01/2008, 08/05/2004 HPV Vaccines Completed 10/17/2015, 10/15/2014 Hepatitis A Vaccines Completed 10/17/2015, 10/16/19 Meningococcal Vaccine Completed 12/20/2019, 015 HIV Screening Completed 10/19/2023, 12/19/2020 Hepatitis C Screening Completed 10/19/2023 Men B Vaccine Completed 10/19/2023, 06/04/2022 Procedures * The patient is currently admitted. The information in this section might not be complete until the patient is discharged.Due to [place] state law, this organization might not be sharing sensitive test results. Procedure Name Priority Date/Time Associated Diagnosis Comments HEPATITIS C ANTIBODY WITH REFLEX TO HCV, RNA, QUANT, RT PCR Routine 10/19/2023 1:54 PM EDT Encounter for screening examination for sexually transmitted disease CHLAMYDIA AND GONORRHEA, AMPLIFIED Routine 10/19/2023 1:49 PM EDT Encounter for screening examination for chlamydial infection from Last 3 Months or Most Recently Relevant to Health Maintenance Results * Due to [place] state law, this organization might not be sharing sensitive test results. * Hepatitis C Antibody w/ reflex to HCV RNA Quant RT PCR (10/19/2023 1:54 PM EDT) HCV Ab Non Reactive Non Reactive [facility] Blood 10/19/2023 1:54 PM EDT 10/19/2023 Narrative [facility] - 10/20/2023 11:06 PM EDT Performed at: ??01 - [facility] [address] ??[id number] Measurement Psychologist: Divina Cabrera MD, Phone: ??[phone] us Jennifer Gannon MD LAB BLOOD ORDERABLES Final Re sult Performing Organization Address [facility] de Phone Number [facility] [address] [place] [address] * Chlamydia and Gonorrhea, Amplified (10/19/2023 1:49 PM EDT) C trach ROMERO Negative Negative [facility] N gonorrhoeae ROMERO Negative Negative [facility] Urine (Urine) 10/19/2023 1:4 9 PM EDT 10/19/2023 Comment:UR Narrative [facility] - 10/20/2023 11:06 PM EDT Performed at: ??01 - [facility] [address] ??[id number] Measurement Psychologist: Divina Cabrera MD, Phone: ??[phone] us Jennifer Gannon MD LAB MICROBIOLOGY - GENERAL OR DERABLES Final Result Performing Organization Address [facility] Co de Phone Number [facility] [address] [place] [address] from Last 3 Months or Most Recently Relevant to Health Maintenance Insurance [facility] NON PCC [facility] Address: [address] [address] [place] [address] [facility] NON PCC
--- OUTSIDE RECORDS SUMMARY | 2024-09-01 12:38 | XMS_ITS | Encounter Summary ---
Demographics Address [address] [place] [address] Home Phone Mobile Phone Preferred Language Bengali Marital Status Unknown Gnosticist Affiliation Unknown Race Unknown Ethnic Group Unknown Author Organization [facility] Address [address] [place] [address] Phone Care Team Providers Care Director Oncology Name Role Phone Unavailable Primary Care Provider Unavailabl e Reason for Visit * Reason Comments ED Admission Encounter Details Date Type Department Care Team (Late st Contact Info) Description 09/01/2024 11:06 AM EDT - Present Hospital Encounter [facility] - Patient Ping Social History Tobacco Use Types Packs/Day Years [...]
--- OUTSIDE RECORDS SUMMARY | 2024-09-01 12:38 | XMS_ITS | Encounter Summary ---
Demographics Address [address] [place] [address] Home Phone Mobile Phone Preferred Language Tamazight Marital Status Unknown Hoahaoism Affiliation Unknown Race Unknown Ethnic Group Unknown Author Organization [facility] Address [address] [place] [phone] Phone Care Team Providers Care Shovel Handle Assembler Name Role Phone Jennifer Gannon MD Primary Care Provider [phone] Encounter Details Date Type Department Care Team (Late st Contact Info) Description 02/03/2017 Conversion Encounter [facility] [address] [place] [address] Social History Tobacco Use Types Packs/Day Years [...] on filedocumented in this encounter Care Teams Shovel Handle Assembler Relationship Specialty Start Date End Date Jennifer Gannon MD [address] [place] [address] PCP - General Pediatrics 11/16/19 08/30/24 documented as of this encounter
[2024-09-01] MEDS: ondansetron HCL 4 MG/2 ML VIAL IVPUSH (12:52)
[2024-09-01] MEDS: 0.9 % Sodium Chloride 1,000 ML 999 ML IV (12:53)
[2024-09-01 13:01] LABS: Appearance Urine Clear; Color Urine Yellow; Glucose Urine UA Negative (Negative); Leukocyte Esterase Urine Negative (Negative); Nitrite Urine Negative (Negative); PH >= 9.0 (5.0-9.0); UMIC TRIGGER UACC YES; Urine Blood Negative (Negative); Urine Ketones 40 mg/dL (Negative); Urine Protein 30 (1+) mg/dL (Neg-Trace)
[2024-09-01 13:12] LABS: Bacteria Urine None Seen (None Seen); Hyaline Casts Urine 0-2 /LPF (0-2); RBC Urine 0-2 /HPF (0-2); Squamous Epithelial Cell Urine 0-2 /HPF (0-2); WBC Urine 0-5 /HPF (0-5)
[2024-09-01 13:33] LABS: Lipase 30 U/L (8-78)
[2024-09-01 13:34] VITALS: BP 100/59; PULSE 70; RESP 20; TEMP 36.8; O2SAT 100
[2024-09-01] MEDS: Magnesium Hydrox/Alum Hydrox 30 ML ORAL.SUSP PO (13:38)
[2024-09-01] MEDS: Potassium Chloride ER 20 MEQ TAB.ER.PRT 40 MEQ PO (13:38)
[2024-09-01] MEDS: PHENobarb/Hyoscy/Atropine/Scop 10 ML ELIXIR PO (13:39)
[2024-09-01] MEDS: Haloperidol Lactate 5 MG/ML VIAL 2.5 MG IVPUSH (14:14)
[2024-09-01 14:17] VITALS: BP 113/64; PULSE 78; RESP 18; TEMP 36.8; O2SAT 99
[2024-09-01] MEDS: Capsaicin 0.025% Cream 60 GM TUBE 1 APPL TOPICAL (14:21)
--- NOTE | 2024-09-01 14:22 | PC.NURSE ---
pt still actively vomiting despite previous interventions. provider notified/aware. medication administered per provider order. effectiveness pending. lights dimmed to promote comfort. family remains bedside for support. plan of care ongoing. call humphries placed within reach.
--- NOTE | 2024-09-01 15:20 | PC.NURSE ---
pt able to tolerate PO challenge w/o difficulty. ambulated to the restroom w/ a strong steady gait s/p medication administration.
[2024-09-01 15:21] VITALS: BP 113/64; PULSE 78; RESP 18; TEMP 36.8; O2SAT 99
== END 2024-09-01 15:27 | disposition home or self-care (01) ==
PROVIDERS: Physician Assistant Medical; Emergency Provider Emergency Medicine
DX: R11.2 Nausea with vomiting, unspecified (principal); E87.6 Hypokalemia; E87.20 Acidosis, unspecified; R10.13 Epigastric pain; F12.90 Cannabis use, unspecified, uncomplicated; Z03.818 Encounter for observation for suspected exposure to other biological agents ruled out
CPT/HCPCS: 0241U; 80053; 81001; 81003; 83690; 83735; 84702; 85025; 96361; 96374; 96375; 99284; 99285; J1630; J2405

== ENCOUNTER 2024-09-25 12:00 | Outpatient (REF) | payer OTHER, SELFPAY ==
[2024-09-25 13:53] LABS: Estimated Average Glucose 105 mg/dL; Hemoglobin A1C 113.0986 umol/L; Hemoglobin A1c % 5.3 % (<6.0); Total Hemoglobin (HGBA1C) 3339.3993 umol/L
--- OUTSIDE RECORDS SUMMARY | 2024-09-25 16:13 | XMS_ITS | Encounter Summary ---
Demographics Address [address] [place] [address] Home Phone Mobile Phone Preferred Language Setswana Marital Status Unknown Evangelical Affiliation Unknown Race Unknown Ethnic Group Unknown Author Organization [facility] Address [address] [place] [address] Phone Care Team Providers Care Monologist Name Role Phone Jennifer Gannon MD Primary Care Provider [phone] Encounter Details Date Type Department Care Team (Late st Contact Info) Description 06/18/2015 Documentation [facility] [place] Family Medicine [address] [place] [address] Family Medicine, Physician [facility] [place], [place] [phone] Social History Tobacco Use Types Packs/Day Years [...] on filedocumented in this encounter Care Teams Monologist Relationship Specialty Start Date End Date Jennifer Gannon MD [address] [place] [address] PCP - General Pediatrics 11/16/19 08/30/24 documented as of this encounter
--- OUTSIDE RECORDS SUMMARY | 2024-09-25 16:13 | XMS_ITS | Encounter Summary ---
Demographics Address [address] [place] [address] Home Phone Mobile Phone Preferred Language Occitan Marital Status Unknown Protestant Affiliation Unknown Race Unknown Ethnic Group Unknown Author Organization [facility] Address [address] [place] [address] Phone Care Team Providers Care Lacquer Pin Press Operator Name Role Phone Jennifer Gannon MD Primary Care Provider [phone] Encounter Details Date Type Department Care Team (Late st Contact Info) Description 02/03/2017 Conversion Encounter [facility] [address] [place] [address] Social History Tobacco Use Types Packs/Day Years [...] on filedocumented in this encounter Care Teams Lacquer Pin Press Operator Relationship Specialty Start Date End Date Jennifer Gannon MD [address] [place] [address] PCP - General Pediatrics 11/16/19 08/30/24 documented as of this encounter
--- OUTSIDE RECORDS SUMMARY | 2024-09-25 16:13 | XMS_ITS | Clinical Summary ---
Demographics Address [address] [place] [address] Home Phone Mobile Phone Preferred Language Belarusian Marital Status Unknown Sabianism Affiliation Unknown Race Unknown Ethnic Group Unknown Author Organization [facility] Address [address] [place] [address] Phone Care Team Providers Care Lead Designer Name Role Phone Unavailable Primary Care Provider [...] - 09/01/2024 3:27 PM EDT Hospital Encounter [facility] - Patient Ping 08/31/2024 Telephone [facility] - [address] [address] Jennifer Gannon MD Letter 06/30/2024 11:13 AM EST - 06/30/2024 7:40 PM EST Hospital Encounter [facility] - Patient Ping from Last 3 [...] Other No family histo ry of Sudden /[place] under 55, No family history of Hyperlipidemia [...] Completed 10/19/2023, 06/04/2022 Procedures * Due to [place] Recl[place] law, this organization might not be sharing sensitive test results. Procedure Name Priority Date/Time Associated Diagnosis Comments CHLAMYDIA AND GONORRHEA, AMPLIFIED Routine 10/19/2023 1:49 PM EDT Encounter for screening examination for chlamydial infection from Last 3 Months or Most Recently Relevant to Health Maintenance Results * Due to [place] Recl[place] law, this organization might not be sharing sensitive test results. * Chlamydia and Gonorrhea, Amplified (10/19/2023 1:49 PM EDT) C trach ROMERO Negative Negative [facility] N gonorrhoeae ROMERO Negative Negative [facility] Urine (Urine) 10/19/2023 1:4 9 PM EDT 10/19/2023 Comment:UR Narrative [facility] - 10/20/2023 11:06 PM EDT Performed at: ??01 - [facility] [address] ??[id number] Tool Maker Apprentice: Divina Cabrera MD, Phone: ??[phone] us Jennifer Gannon MD LAB MICROBIOLOGY - GENERAL OR DERABLES Final Result [facility] [address] [place] [address] from Last 3 Months or Most Recently Relevant to Health Maintenance
--- OUTSIDE RECORDS SUMMARY | 2024-09-25 16:13 | XMS_ITS | Encounter Summary ---
Demographics Address [address] [place] [address] Home Phone Mobile Phone Preferred Language Wolof Marital Status Unknown Buddhist Affiliation Unknown Race Unknown Ethnic Group Unknown Author Organization [facility] Address [address] [place] [address] Phone Care Team Providers Care Juvenile Probation Officer Name Role Phone Jennifer Gannon MD Primary Care Provider [phone] Encounter Details Date Type Department Care Team (Late st Contact Info) Description 06/23/2015 Documentation [facility] Family Medicine [address] [place] [address] Family Medicine, Physician [facility] [place], [place] [phone] Social History Tobacco Use Types Packs/Day Years [...] on filedocumented in this encounter Care Teams Juvenile Probation Officer Relationship Specialty Start Date End Date Jennifer Gannon MD [address] [place] [address] PCP - General Pediatrics 11/16/19 08/30/24 documented as of this encounter
--- OUTSIDE RECORDS SUMMARY | 2024-09-25 16:13 | XMS_ITS | Encounter Summary ---
Demographics Address [address] [place] [address] Home Phone Mobile Phone Preferred Language Indonesian Marital Status Unknown Yazdanism Affiliation Unknown Race Unknown Ethnic Group Unknown Author Organization [facility] Address [address] [place] [address] Phone Care Team Providers Care Saxophone Teacher Name Role Phone Jennifer Gannon MD Primary Care Provider [phone] Encounter Details Date Type Department Care Team (Late st Contact Info) Description 03/06/[address] [facility] [place] Family Medicine [address] [place] [address] Family Medicine, Physician [facility] [place], [place] [phone] Social History Tobacco Use Types Packs/Day Years [...] on filedocumented in this encounter Care Teams Saxophone Teacher Relationship Specialty Start Date End Date Jennifer Gannon MD [address] [place] [address] PCP - General Pediatrics 11/16/19 08/30/24 documented as of this encounter
== END 2024-09-25 12:01 | disposition home or self-care (01) ==
LOC: HO.LAB 12:00
PROVIDERS: Visit Provider Nurse Practitioner
DX: R10.13 Epigastric pain (principal); R73.9 Hyperglycemia, unspecified; R11.2 Nausea with vomiting, unspecified; K21.9 Gastro-esophageal reflux disease without esophagitis
CPT/HCPCS: 36415; 83036; 99202

== ENCOUNTER 2024-09-25 12:00 | Outpatient (AMB) | payer OTHER, SELFPAY ==
--- NOTE | 2024-09-25 12:01 | MHC.OFFVIS ---
Vital Signs 09/25/24 12:10 Height 5 ft 2 in Weight 160 lb 14.999 oz BMI 29.4 BP 98/58 L Blood Pressure Location Rt brachial Position Sitting Pulse 76 Pulse Source Pulse Oximeter Pulse Oximetry (%) 95 Oxygen Delivery Method Room Air Intake Visit Reasons: stomach pain Intake Note: ESTABLISHED PATIENT for Y Chief Complaint; C/O epigastric pain with certain trigger foods. Pt states that reflux has been under fair control since starting PPI. Crime Scene Specialist Required: No Accompanied by: Significant Other Allergies No Known Allergies Allergy (Verified 09/25/24 12:03) HPI HPI stomach pain: Details: 19-year-old female here for initial evaluation of abdominal pain. She is referred by [facility]. PMX OVERWEIGHT Anxiety disorder Decreased vision Acute epigastric pain * SURGICAL HISTORY Patient denies * ALLERGIES: NKDA * Brandfolder LABS: Laboratory Tests 09/01/24 11:30 WBC 7.8 Hgb 12.7 Hct 36.1 L MCV 86.2 MCH 30.3 Plt Count 280 Estimated GFR > 60 Magnesium 1.7 Total Bilirubin 0.5 AST 24 ALT 40 H Alkaline Phosphatase 61 Since 2020 in our ER for the same symptoms set. ULTRASOUND OF THE ABDOMEN 06/30/24 Findings: Common duct 4.0 mm diameter. Gallbladder is physiologically distended. No layering gallstones.Two and 3 mm gallbladder polyps. No pericholecystic fluid. Patient was tender over the gallbladder region. Impression: 1. No cholelithiasis. Patient was tender over the gallbladder region. 2. 2-3 mm gallbladder polyps. TODAY'S VISIT Onset 06/02/24 sudden onset and she presented to the ER and was told she has gastritis. There is no known FHX of PUD, gB disease or CRC. Only liver and kidney cancer. She will vomit and have sx if she eats very greasy foods or eats at a restaurant called [employer]. Her sx have otherwise largely resolved with omeprazole. She denies any fever, chills, constipation or diarrhea. She had a 10 lb weight loss initially that seems to have regained that after the omeprazole. She denies any cardiac or respiratory problems. She is naive to anesthesia and sedation. There are no infectious disease problems. She will continue the omeprazole for now pending test results. Next available [facility] Medical History (Updated 09/25/24 @ 13:00 by MARCEL Velasco) GERD (gastroesophageal reflux disease) Family History Maternal Aunt Liver cancer Social History Alcohol intake: never Patient Tobacco Use Status: Never used Tobacco Substance Use Type: Marijuana Review of Systems Const Denies fatigue, Denies fever(s), Denies night sweats, Denies poor appetite and Reports weight loss Eyes Details: glasses Reports requires corrective lenses ENT Reports Normal hearing present, Denies dental pain, Denies dysphagia, Denies hearing loss, Denies mouth pain, Denies odynophagia, Denies throat swelling, Denies tongue swelling and Reports other (Dentition adequate) Card Reports no additional complaints Resp Reports no additional complaints GI Details: Reports abdominal pain, Denies melena, Denies bloating, Denies hematochezia, Denies constipation, Denies GI cramping, Denies dysphagia, Denies excessive flatus, Denies early satiety, Reports heartburn, Denies diarrhea, Reports nausea, Denies odynophagia, Reports vomiting and Denies hematemesis Skin/Breast Denies pruritus, Denies lesions, Denies rash and Denies jaundice Neuro Reports Normal hearing present and Denies Abnormal speech present Endo Denies fatigue Aller/Immun Denies throat swelling and Denies tongue swelling Physical Exam Vital Signs: Last Vital Signs Pulse 76 09/25/24 12:10 BP 98/58 L 09/25/24 12:10 Pulse Ox 95 09/25/24 12:10 Oxygen Delivery Method Room Air 09/25/24 12:10 BMI result Body Mass Index 29.4 Const General: cooperative, no acute distress, well developed and well groomed Nutritional Appearance: average body habitus and well nourished Orientation/consciousness: oriented to person, oriented to place and oriented to time Limitations: No language barrier HEENT Head: Yes normocephalic and Yes atraumatic Eyes General: appearance normal, both eyes and all related structures Pupils: Equal, round and reactive pupils present Neck Neck: Yes normal visual inspection and Yes no lymphadenopathy Thyroid: Thyroid normal Resp Effort & Inspection: normal respiratory effort and able to speak in complete sentences Auscultation: clear to auscultation bilaterally Cardio Rate: regular rate Rhythm: regular rhythm Heart sounds: Normal, physiologic split S2 sound present Peripheral pulses: radial pulses present and posterior tibial pulses present GI Other: White line of vitiligo midline abdomen that looks like a surgical scar but is not Inspection: No distended and No Abdominal panniculus present Palpation (GI): Soft to palpation, nontender, no guarding, not rigid and No hepatosplenomegaly present Percussion: Yes normal to percussion Auscultation: normal bowel sounds Rectal Exam - Female: deferred Skin General skin exam: no rashes or lesions noted, turgor normal, skin not dry, no jaundice, No spider nevi and no striae Rashes: no rashes Nails: normal Neuro General: oriented to person, oriented to place and oriented to time Cranial nerves: Yes Equal, round and reactive pupils present and Yes Normal hearing present Speech: No Abnormal speech present Extrem General: Yes normal to inspection, No clubbing, No cyanosis and No edema Psych Appearance: grossly normal and well kempt Mental Status: mental status grossly normal Speech and movement: Normal speech and movement present Affect: normal affect Attitude: cooperative Thought process: Normal thought process present and not confabulating Thought content: Normal thought content present Insight: Limited insight present (Psych) Judgement: Limited judgement present (Psych) Assessment & Plan Assessment & Plan (1) Epigastric pain: Code(s): R10.13 - Epigastric pain Category: Medical (2) Nausea and vomiting in adult: Code(s): R11.2 - Nausea with vomiting, unspecified Category: Medical (3) GERD (gastroesophageal reflux disease): Code(s): K21.9 - Gastro-esophageal reflux disease without esophagitis Category: Medical (4) Elevated serum glucose: Code(s): R73.9 - Hyperglycemia, unspecified Category: Medical Plan Onset 06/02/24 sudden onset and she presented to the ER and was told she has gastritis. There is no known FHX of PUD, gB disease or CRC. Only liver and kidney cancer. She will vomit and have sx if she eats very greasy foods or eats at a restaurant called [employer]. Her sx have otherwise largely resolved with omeprazole. She denies any fever, chills, constipation or diarrhea. She had a 10 lb weight loss initially that seems to have regained that after the omeprazole. She denies any cardiac or respiratory problems. She is naive to anesthesia and sedation. There are no infectious disease problems. She will continue the omeprazole for now pending test results. Next available Orders: Orders NM hepatobiliary w pharm Today R10.13 - Epigastric pain, R11.2 - Nausea with vomiting, unspecified H pylori Ag Stool Today R10.13 - Epigastric pain, R11.2 - Nausea with vomiting, unspecified Pancreatic Elastase-1 Today R10.13 - Epigastric pain, R11.2 - Nausea with vomiting, unspecified EGD - GI Use Only Today R10.13 - Epigastric pain, R11.2 - Nausea with vomiting, unspecified Hemoglobin A1c Today R73.9 - Hyperglycemia, unspecified Medications: Refilled omeprazole 20 mg PO DAILY 30 caps 6RF 30 days K21.9 - Gastro-esophageal reflux disease without esophagitis, R10.13 - Epigastric pain Coding Level of Care Code New Pt Level 3 (84328) Diagnoses Epigastric pain R10.13 Nausea and vomiting in adult R11.2 GERD (gastroesophageal reflux disease) K21.9 Elevated serum glucose R73.9
[2024-09-25 12:10] VITALS: BP 98/58; PULSE 76; O2SAT 95; BMI 29.4
--- OUTSIDE RECORDS SUMMARY | 2024-09-25 14:38 | XMS_ITS | Encounter Summary ---
Demographics Address [address] [place] [address] Home Phone Mobile Phone Preferred Language Portuguese Marital Status Unknown Jain Affiliation Unknown Race Unknown Ethnic Group Unknown Author Organization [facility] Address [address] [place] [address] Phone Care Team Providers Care Trade Embalmer Name Role Phone Jennifer Gannon MD Primary Care Provider [phone] Encounter Details Date Type Department Care Team (Late st Contact Info) Description 06/23/2015 Documentation [facility] [place] [facility] [address] [place] [address] Family Medicine, Physician [facility] [place], [place] [id number] Social History Tobacco Use Types Packs/Day Years [...] on filedocumented in this encounter Care Teams Trade Embalmer Relationship Specialty Start Date End Date Jennifer Gannon MD [address] [place] [address] PCP - General Pediatrics 11/16/19 08/30/24 documented as of this encounter
--- OUTSIDE RECORDS SUMMARY | 2024-09-25 14:38 | XMS_ITS | Clinical Summary ---
Demographics Address [address] [place] [address] Home Phone Mobile Phone Preferred Language Amharic Marital Status Unknown Baptism Affiliation Unknown Race Unknown Ethnic Group Unknown Author Organization [facility] Address [address] [place] [address] Phone Care Team Providers Care Hand Inspector Name Role Phone Unavailable Primary Care Provider [...] Team Description 09/01/2024 11:06 AM EDT - 09/01/2024 3:27 PM EDT Hospital Encounter [facility] - Patient Ping 08/31/2024 Telephone [facility] - [address] [address] Jennifer Gannon MD Letter 06/30/2024 11:13 AM EST - 06/30/2024 7:40 PM EST Hospital Encounter [facility] - Patient Ping from Last 3 [...] Diabetes Maternal Grandfather No Known Problems Mother Kamala Caro No Known Problems Sister 1 Tracy Molina No Known Problems Sister 2 Miguelina Molina No Known Problems Sister 3 Lavinia Mar Relation Name Status Comments Brother 1 Rei Birch Alive Brother: Alive and well, Alive and well Brother 2 Brother: Alive and well, Alive and well Father Maternal Grandfather Alive Maternal Grandmother Alive Mother Kamala Caro Alive Other No family histo ry of Sudden /[place] under 55, No family history of Hyperlipidemia [...] 06/04/2022, 07/29/2021, Additional history exists COVID-19 Vaccine (5 - 2023-2 5 season) 2024 06/04/2022, 07/29/2021, 12/09/2020, Additional history exists DTaP,Tdap,and Td Vaccines (7 [...] 10/15/2014 Hepatitis A Vaccines Completed 10/17/2015, 10/16/19 15 Meningococcal Vaccine Completed 12/20/2019, 015 Men B Vaccine Completed 10/19/2023, 06/04/2022 Procedures * Due to [place] law, this organization might not be sharing sensitive test results. Procedure Name Priority Date/Time Associated Diagnosis Comments CHLAMYDIA AND GONORRHEA, AMPLIFIED Routine 10/19/2023 1:49 PM EDT Encounter for screening examination for chlamydial infection from Last 3 Months or Most Recently Relevant to Health Maintenance Results * Due to [place] law, this organization might not be sharing sensitive test results. * Chlamydia and Gonorrhea, Amplified (10/19/2023 1:49 PM EDT) C trach ROMERO Negative Negative [facility] N gonorrhoeae ROMERO Negative Negative [facility] Urine (Urine) 10/19/2023 1:4 9 PM EDT 10/19/2023 Comment:UR Narrative [facility] - 10/20/2023 11:06 PM EDT Performed at: ??01 - [facility] [address] ??[id number] Digital Ad Trafficker: Divina Cabrera MD, Phone: ??[phone] us Jennifer Gannon MD LAB MICROBIOLOGY - GENERAL OR DERABLES Final Result [facility] [address] [place] [address] from Last 3 Months or Most Recently Relevant to Health Maintenance
--- OUTSIDE RECORDS SUMMARY | 2024-09-25 14:38 | XMS_ITS | Encounter Summary ---
Demographics Address [address] [place] [address] Home Phone Mobile Phone Preferred Language Tamazight Marital Status Unknown Sikhism Affiliation Unknown Race Unknown Ethnic Group Unknown Author Organization [facility] Address [address] [place] [address] Phone Care Team Providers Care Jewelry Maker Name Role Phone Jennifer Gannon MD Primary Care Provider [phone] Encounter Details Date Type Department Care Team (Late st Contact Info) Description 06/18/2015 Documentation [facility] [place] [facility] [address] [place] [address] Family Medicine, Physician [facility] [place], [place] [id number] Social History Tobacco Use Types Packs/Day Years [...] on filedocumented in this encounter Care Teams Jewelry Maker Relationship Specialty Start Date End Date Jennifer Gannon MD [address] [place] [address] PCP - General Pediatrics 11/16/19 08/30/24 documented as of this encounter
--- OUTSIDE RECORDS SUMMARY | 2024-09-25 14:38 | XMS_ITS | Encounter Summary ---
Demographics Address [address] [place] [address] Home Phone Mobile Phone Preferred Language Yi Marital Status Unknown Zoroastrianism Affiliation Unknown Race Unknown Ethnic Group Unknown Author Organization [facility] Address [address] [place] [address] Phone Care Team Providers Care Industrial Commercial Groundskeeper Name Role Phone Jennifer Gannon MD Primary Care Provider [phone] Encounter Details Date Type Department Care Team (Late st Contact Info) Description 02/03/2017 Conversion Encounter [facility] [address] [place] [address] Social History Tobacco Use Types Packs/Day Years [...] on filedocumented in this encounter Care Teams Industrial Commercial Groundskeeper Relationship Specialty Start Date End Date Jennifer Gannon MD [address] [place] [address] PCP - General Pediatrics 11/16/19 08/30/24 documented as of this encounter
--- OUTSIDE RECORDS SUMMARY | 2024-09-25 14:38 | XMS_ITS | Encounter Summary ---
Demographics Address [address] [place] [address] Home Phone Mobile Phone Preferred Language Japanese Marital Status Unknown Nondenominational Affiliation Unknown Race Unknown Ethnic Group Unknown Author Organization [facility] Address [address] [place] [address] Phone Care Team Providers Care Doll Surgeon Name Role Phone Jennifer Gannon MD Primary Care Provider [phone] Encounter Details Date Type Department Care Team (Late st Contact Info) Description 03/06/2012 Documentation [facility] [place] [address] [place] [address] Family Medicine, Physician [facility] [place], [place] [id number] Social History Tobacco Use Types Packs/Day Years [...] on filedocumented in this encounter Care Teams Doll Surgeon Relationship Specialty Start Date End Date Jennifer Gannon MD [address] [place] [place] [address] PCP - General Pediatrics 11/16/19 08/30/24 documented as of this encounter
== END 2024-09-25 14:33 | disposition home or self-care (01) ==
PROVIDERS: Visit Provider Nurse Practitioner
DX: R10.13 Epigastric pain (principal); R11.2 Nausea with vomiting, unspecified; K21.9 Gastro-esophageal reflux disease without esophagitis; R73.9 Hyperglycemia, unspecified
CPT/HCPCS: 99203

== ENCOUNTER → 2024-10-26 10:44 | Outpatient (REF) | payer OTHER, SELFPAY ==
--- NOTE | ~2024-10-26 | NM_ITS ---
EXAMINATION: NM HEPATOBILIARY WITH PHARM HISTORY: R10.13 - Epigastric pain. TECHNIQUE: An hepatobiliary scan was performed following the intravenous administration of 5 mCi technetium 99m-mebrofenin. Sequential images were obtained over 1 hour. Subsequently, the patient received 1.4 microgram of IV CCK over 30 minutes and additional imaging was performed. COMPARISON: Correlation is made with an abdominal ultrasound dated 06/30/2024. FINDINGS: There is normal uptake and excretion of the radiopharmaceutical by the liver. Gallbladder activity is noted at 12 minutes. Common bile duct activity is seen at 20 minutes. Small bowel activity is noted at 28 minutes. After the administration of intravenous CCK, the estimated gallbladder ejection fraction is 83%, which is within normal limits (normal 35-80%). NM/NM hepatobiliary w pharm IMPRESSION: Normal hepatobiliary scan with normal gallbladder ejection fraction. Electronically signed by: Adrian Nguyen MD 10/26/2024 02:00 PM EDT
--- OUTSIDE RECORDS SUMMARY | 2024-10-26 11:14 | XMS_ITS | Clinical Summary ---
Demographics Address [address] [place] [address] Home Phone Mobile Phone Preferred Language Equatorial Guinean Marital Status Unknown Scientology Affiliation Unknown Race Unknown Ethnic Group Unknown Author Organization [facility] Address [address] [place] [address] Phone Care Team Providers Care Director Of Patient Financial Services Name Role Phone Unavailable Primary Care Provider [...] AM EDT - 09/01/2024 3:27 PM EDT Emergency [facility] - Patient Ping 08/31/2024 Telephone [facility] - [address] [address] Jennifer Gannon MD Letter from Last 3 Months Immunizations Immunization Administration Dates Next Due COVID-19 Pfizer, bivalent, 12+ years 06/04/2022 DTaP 5 02/01/2008, 5,01/02/2004,11/07,2003 HPV Vaccine 9 Valent 10/17/2015 HPV, Quadrivalent 10/15/2014 Hep A, ped/adol 10/17/2015,10/15/2014 Hep B, ped/adol 05/01/2004,01/02/2004,2003 Hib (HbOC) 11/03/2004,01/02/2004 Hib (PRP-T) 2003,2003 IPV 02/01/2008, 4,2003,08/09 Influenza Split 07/29/2011 Influenza, injectable, quadr ivalent, preservative free 10/19/2023,06/04/2022,07/29/2021,06/01,06/26/2018 Influenza, injectable, trivalent 05/06/2006,04/20 Influenza, intranasal, trivalent 03/10/2010,02/2010 MMR 02/01/2008,08/05/2004 Meningococcal B Trumenba 10/19/2023,06/04/2022 Meningococcal [...] Other No family histo ry of Sudden /[place] under 55, No family history of Hyperlipidemia [...] Completed 10/19/2023, 06/04/2022 Procedures * Due to [place] state law, this organization might not be sharing sensitive test results. Procedure Name Priority Date/Time Associated Diagnosis Comments CHLAMYDIA AND GONORRHEA, AMPLIFIED Routine 10/19/2023 1:49 PM EDT Encounter for screening examination for chlamydial infection from Last 3 Months or Most Recently Relevant to Health Maintenance Results * Due to [place] law, this organization might not be sharing sensitive test results. * Chlamydia and Gonorrhea, Amplified (10/19/2023 1:49 PM EDT) C trach ROMERO Negative Negative [facility] N gonorrhoeae ROMERO Negative Negative [facility] Urine (Urine) 10/19/2023 1:4 9 PM EDT 10/19/2023 Comment:UR Narrative [facility] - 10/20/2023 11:06 PM EDT Performed at: ??01 - [facility] [address] ??[id number] Continuous Churn Buttermaker: Divina Cabrera MD, Phone: ??[phone] us Jennifer Gannon MD LAB MICROBIOLOGY - GENERAL OR DERABLES Final Result [facility] [address] [place] [address] from Last 3 Months or Most Recently Relevant to Health Maintenance
--- OUTSIDE RECORDS SUMMARY | 2024-10-26 11:14 | XMS_ITS | Encounter Summary ---
Demographics Address [address] [place] [address] Home Phone Mobile Phone Preferred Language Romansh Marital Status Unknown Rastafari Affiliation Unknown Race Unknown Ethnic Group Unknown Author Organization [facility] Address [address] [place] [address] Phone Care Team Providers Care School Speech Language Pathologist Name Role Phone Jennifer Gannon MD Primary Care Provider [phone] Encounter Details Date Type Department Care Team (Late st Contact Info) Description 06/23/2015 Documentation [facility] [place] [address] [place] [address] Family Medicine, Physician [facility] [place] [phone] Social History Tobacco Use Types Packs/Day Years [...] on filedocumented in this encounter Care Teams School Speech Language Pathologist Relationship Specialty Start Date End Date Jennifer Gannon MD [address] [place] [address] PCP - General Pediatrics 11/16/19 08/30/24 documented as of this encounter
--- OUTSIDE RECORDS SUMMARY | 2024-10-26 11:14 | XMS_ITS | Encounter Summary ---
Demographics Address [address] [place] [address] Home Phone Mobile Phone Preferred Language Yakut Marital Status Unknown Shinto Affiliation Unknown Race Unknown Ethnic Group Unknown Author Organization [facility] Address [address] [place] [address] Phone Care Team Providers Care Education Analyst Name Role Phone Jennifer Gannon MD Primary Care Provider [phone] Encounter Details Date Type Department Care Team (Late st Contact Info) Description 03/06/2012 [place] [facility] [place] [address] [place] [address] Family Medicine, Physician [facility] [place] [phone] Social History Tobacco Use Types Packs/Day Years [...] on filedocumented in this encounter Care Teams Education Analyst Relationship Specialty Start Date End Date Jennifer Gannon MD [address] [place] [id number] PCP - General Pediatrics 11/16/19 08/30/24 documented as of this encounter
--- OUTSIDE RECORDS SUMMARY | 2024-10-26 11:14 | XMS_ITS | Encounter Summary ---
Demographics Address [address] [place] [address] Home Phone Mobile Phone Preferred Language Hebrew Marital Status Unknown Worship Affiliation Unknown Race Unknown Ethnic Group Unknown Author Organization [facility] Address [address] [place] [address] Phone Care Team Providers Care Communications Systems Engineer Name Role Phone Jennifer Gannon MD Primary Care Provider Encounter Details Date Type Department Care Team (Late st Contact Info) Description 02/03/2017 Conversion Encounter [facility] [address] [place] [address] Social History Tobacco Use Types Packs/Day Years [...] on filedocumented in this encounter Care Teams Communications Systems Engineer Relationship Specialty Start Date End Date Jennifer Gannon MD [address] [place] [address] PCP - General Pediatrics 11/16/19 08/30/24 documented as of this encounter
--- OUTSIDE RECORDS SUMMARY | 2024-10-26 11:14 | XMS_ITS | Encounter Summary ---
Demographics Address [address] [place] [address] Home Phone Mobile Phone Preferred Language Upper Sorbian Marital Status Unknown Adventism Affiliation Unknown Race Unknown Ethnic Group Unknown Author Organization [facility] Address [address] [place] [address] Phone Care Team Providers Care Misdraw Hand Name Role Phone Jennifer Gannon MD Primary Care Provider [phone] Encounter Details Date Type Department Care Team (Late st Contact Info) Description 06/18/2015 Documentation [facility] [place] Medicine [address] [place] [address] Family Medicine, Physician [facility] [place], [place] [phone] Social History Tobacco Use Types Packs/Day Years [...] on filedocumented in this encounter Care Teams Misdraw Hand Relationship Specialty Start Date End Date Jennifer Gannon MD [address] [place] [id number] PCP - General Pediatrics 11/16/19 08/30/24 documented as of this encounter
== END ==
LOC: HO.NUCMED 10:44
PROVIDERS: Visit Provider Nurse Practitioner
DX: R10.13 Epigastric pain (principal); R11.2 Nausea with vomiting, unspecified
CPT/HCPCS: 78227; A9537; J2805

== ENCOUNTER → 2024-10-26 10:45 | Outpatient (BNV) | payer OTHER, SELFPAY | PROVIDERS: Visit Provider Radiology Diagnostic Radiology | DX: R10.13 Epigastric pain (principal) | CPT/HCPCS: 78227 ==

== ENCOUNTER 2024-11-27 14:19 | Outpatient (AMB) | payer OTHER, SELFPAY ==
--- NOTE | 2024-11-27 14:24 | A.OFFVIS_ITS ---
Vital Signs 11/27/24 14:29 Height 5 ft 2 in Weight 149 lb 4 oz BMI 27.3 BP 122/60 Blood Pressure Location Lt brachial Position Sitting Pulse 82 Pulse Source Pulse Oximeter Pulse Oximetry (%) 95 Oxygen Delivery Method Room Air Intake Visit Reasons: Follow up abd pain Intake Note: Established patient for mgmt of GERD + chronic abd pain. Imaging done. CC; Pt denies any GI sx or concerns at this time. Pt comments that Rx is working well for controlling chronic sx. Grocery Deliverer Required: No Accompanied by: Significant Other Allergies No Known Allergies Allergy (Verified 11/27/24 14:24) HPI HPI Follow up abd pain: Details: Assessment & Plan (1) Epigastric pain: Code(s): R10.13 - Epigastric pain Category: Medical (2) Nausea and vomiting in adult: Code(s): R11.2 - Nausea with vomiting, unspecified Category: Medical (3) GERD (gastroesophageal reflux disease): Code(s): K21.9 - Gastro-esophageal reflux disease without esophagitis Category: Medical (4) Elevated serum glucose: Code(s): R73.9 - Hyperglycemia, unspecified Category: Medical Plan Onset 06/02/24 sudden onset and she presented to the ER and was told she has gastritis. There is no known FHX of PUD, gB disease or CRC. Only liver and kidney cancer. She will vomit and have sx if she eats very greasy foods or eats at a restaurant called [employer] Her sx have otherwise largely resolved with omeprazole. She denies any fever, chills, constipation or diarrhea. She had a 10 lb weight loss initially that seems to have regained that after the omeprazole. She denies any cardiac or respiratory problems. She is naive to anesthesia and sedation. There are no infectious disease problems. She will continue the omeprazole for now pending test results. Next available Orders: Orders NM hepatobiliary w pharm Today R10.13 - Epigastric pain, R11.2 - Nausea with vomiting, unspecified H pylori Ag Stool Today R10.13 - Epigastric pain, R11.2 - Nausea with vomiting, unspecified Pancreatic Elastase-1 Today R10.13 - Epigastric pain, R11.2 - Nausea with vomiting, unspecified EGD - GI Use Only Today R10.13 - Epigastric pain, R11.2 - Nausea with vomiting, unspecified Hemoglobin A1c Today R73.9 - Hyperglycemia, unspecified Medications: Refilled omeprazole 20 mg PO DAILY 30 caps 6RF 30 days K21.9 - Gastro-esophageal reflux disease without esophagitis, R10.13 - Epigastric pain LABS: Laboratory Tests 09/25/24 13:29 Hemoglobin A1c % 5.3 H pylori stool and pancreatic a last taste have not been obtained HIDA 10/26/2024 FINDINGS: There is normal uptake and excretion of the radiopharmaceutical by the liver. Gallbladder activity is noted at 12 minutes. Common bile duct activity is seen at 20 minutes. Small bowel activity is noted at 28 minutes. After the administration of intravenous CCK, the estimated gallbladder ejection fraction is 83%, which is within normal limits (normal 35-80%). NM/NM hepatobiliary w pharm IMPRESSION: Normal hepatobiliary scan with normal gallbladder ejection fraction. EGD/COLONOSCOPY BIOPSY TODAYS VISIT All of her symptoms seem to have improved on the omeprazole. That is really good, and since this has been a good response I think we can cancel the pancreatic a last taste I am knees pylori stool. HIDA scan was normal. She still has the upcoming EGD/colonoscopy and I think this will give us all the information that we need. Return office visit in 6 months [facility] Medical History (Updated 11/27/24 @ 14:33 by MARCEL Velasco) COVID-19 GERD (gastroesophageal reflux disease) Family History Maternal Aunt Liver cancer Social History Alcohol intake: never Patient Tobacco Use Status: Never used Tobacco Substance Use Type: Marijuana Review of Systems Const Denies fatigue, Denies fever(s), Denies night sweats, Denies poor appetite and Denies weight loss Eyes Details: glasses Reports requires corrective lenses ENT Reports Normal hearing present, Denies dental pain, Denies dysphagia, Denies hearing loss, Denies mouth pain, Denies odynophagia, Denies throat swelling, Denies tongue swelling and Reports other (Dentition adequate) Card Reports no additional complaints Resp Reports no additional complaints GI Details: Denies abdominal pain, Denies melena, Denies bloating, Denies hematochezia, Denies constipation, Denies GI cramping, Denies dysphagia, Denies excessive flatus, Denies early satiety, Reports heartburn, Denies diarrhea, Denies nausea, Denies odynophagia, Denies vomiting and Denies hematemesis Skin/Breast Denies pruritus, Denies lesions, Denies rash and Denies jaundice Neuro Reports Normal hearing present and Denies Abnormal speech present Endo Denies fatigue Aller/Immun Denies throat swelling and Denies tongue swelling Physical Exam Vital Signs: Last Vital Signs Pulse 82 11/27/24 14:29 BP 122/60 11/27/24 14:29 Pulse Ox 95 11/27/24 14:29 Oxygen Delivery Method Room Air 11/27/24 14:29 BMI result Body Mass Index 27.3 Const General: cooperative, no acute distress, well developed and well groomed Nutritional Appearance: average body habitus and well nourished Orientation/consciousness: oriented to person, oriented to place and oriented to time Limitations: language barrier HEENT Head: Yes normocephalic and Yes atraumatic Eyes General: appearance normal, both eyes and all related structures Pupils: Equal, round and reactive pupils present Neck Neck: Yes normal visual inspection and Yes no lymphadenopathy Thyroid: Thyroid normal Resp Effort & Inspection: normal respiratory effort and able to speak in complete sentences Auscultation: clear to auscultation bilaterally Cardio Rate: regular rate Rhythm: regular rhythm Heart sounds: Normal, physiologic split S2 sound present Peripheral pulses: radial pulses present and posterior tibial pulses present GI Inspection: No distended and No Abdominal panniculus present Palpation (GI): Soft to palpation, nontender, no guarding, not rigid and No hepatosplenomegaly present Percussion: Yes normal to percussion Auscultation: normal bowel sounds Rectal Exam - Female: deferred Skin General skin exam: no rashes or lesions noted, turgor normal, skin not dry, no jaundice, No spider nevi and no striae Rashes: no rashes Nails: normal Neuro General: oriented to person, oriented to place and oriented to time Cranial nerves: Yes Equal, round and reactive pupils present and Yes Normal hea ring present Speech: No Abnormal speech present Extrem General: Yes normal to inspection, No clubbing, No cyanosis and No edema Psych Appearance: grossly normal and well kempt Mental Status: mental status grossly normal Speech and movement: Normal speech and movement present Affect: normal affect Attitude: cooperative Thought process: Normal thought process present and not confabulating Thought content: Normal thought content present Insight: Fair insight present (Psych) Judgement: Fair judgement present (Psych) Assessment & Plan Assessment & Plan (1) GERD (gastroesophageal reflux disease): Code(s): K21.9 - Gastro-esophageal reflux disease without esophagitis Category: Medical (2) Nausea and vomiting in adult: Code(s): R11.2 - Nausea with vomiting, unspecified Category: Medical (3) Epigastric pain: Code(s): R10.13 - Epigastric pain Category: Medical Plan All of her symptoms seem to have improved on the omeprazole. That is really good, and since this has been a good response I think we can cancel the pancreatic a last taste I am knees pylori stool. HIDA scan was normal. She still has the upcoming EGD/colonoscopy and I think this will give us all the information that we need. Return office visit in 6 months EGD/COLONOSCOPY BIOPSY Medications: Changed From omeprazole 20 mg PO DAILY 30 days 30 caps 6RF K21.9 - Gastro-esophageal reflux disease without esophagitis, R10.13 - Epigastric pain To omeprazole 20 mg PO BID 60 caps 6RF 30 days K21.9 - Gastro-esophageal reflux disease without esophagitis, R10.13 - Epigastric pain Coding Level of Care Code Est Pt Level 3 (86945) Diagnoses GERD (gastroesophageal reflux disease) K21.9 Nausea and vomiting in adult R11.2 Epigastric pain R10.13
[2024-11-27 14:29] VITALS: BP 122/60; PULSE 82; O2SAT 95; BMI 27.3
--- OUTSIDE RECORDS SUMMARY | 2024-11-27 17:15 | XMS_ITS | Encounter Summary ---
Demographics Address [address] [place] [address] Home Phone Mobile Phone Preferred Language Korean Marital Status Unknown Cheondoism Affiliation Unknown Race Unknown Ethnic Group Unknown Author Organization [facility] Address [address] [place] [address] Phone Care Team Providers Care Sampler Pickup Name Role Phone Jennifer Gannon MD Primary Care Provider [phone] Encounter Details Date Type Department Care Team (Late st Contact Info) Description 06/23/2015 Documentation [facility] [place] [address] [place] [address] Family Medicine, Physician [facility] [place] [phone] Social History Tobacco Use Types Packs/Day Years [...] on filedocumented in this encounter Care Teams Sampler Pickup Relationship Specialty Start Date End Date Jennifer Gannon MD [address] [place] [id number] PCP - General Pediatrics 11/16/19 08/30/24 documented as of this encounter
== END 2024-11-27 14:41 | disposition home or self-care (01) ==
LOC: HO.HGI 14:19
PROVIDERS: Visit Provider Nurse Practitioner
DX: K21.9 Gastro-esophageal reflux disease without esophagitis (principal); R11.2 Nausea with vomiting, unspecified; R10.13 Epigastric pain
CPT/HCPCS: 99213

== ENCOUNTER → 2024-11-27 14:19 | Outpatient (BNVA) | payer OTHER, SELFPAY | PROVIDERS: Visit Provider Nurse Practitioner | DX: K21.9 Gastro-esophageal reflux disease without esophagitis (principal); R10.13 Epigastric pain; R11.2 Nausea with vomiting, unspecified; R73.9 Hyperglycemia, unspecified | CPT/HCPCS: 99212 ==

== ENCOUNTER 2024-11-29 14:31 | Outpatient (REF) | payer OTHER, SELFPAY ==
--- OUTSIDE RECORDS SUMMARY | 2024-11-29 17:05 | XMS_ITS | Encounter Summary ---
Demographics Address [address] [place] [address] Home Phone Mobile Phone Preferred Language Albanian Marital Status Unknown Restoration Affiliation Unknown Race Unknown Ethnic Group Unknown Author Organization [facility] Address [address] [place] [address] Phone Care Team Providers Care Stone Cleaner Name Role Phone Jennifer Gannon MD Primary Care Provider [phone] Encounter Details Date Type Department Care Team (Late st Contact Info) Description 06/23/2015 [place] [facility] [place] [address] [place] [address] Family Medicine, Physician [facility] [place] [phone] Social History Tobacco Use Types Packs/Day Years [...] on filedocumented in this encounter Care Teams Stone Cleaner Relationship Specialty Start Date End Date Jennifer Gannon MD [address] [place] [address] PCP - General Pediatrics 11/16/19 08/30/24 documented as of this encounter
[2024-12-08 02:58] LABS: Pancreatic Elastase-1 >800 mcg/g (>200)
== END 2024-11-29 14:32 | disposition home or self-care (01) ==
LOC: HO.LNP 14:31
PROVIDERS: Visit Provider Nurse Practitioner
DX: R10.13 Epigastric pain (principal); R11.2 Nausea with vomiting, unspecified
CPT/HCPCS: 82656; 87338

== ENCOUNTER 2025-03-04 13:58 | Emergency (ER) | payer OTHER, SELFPAY ==
[2025-03-04 14:29] VITALS: BP 105/68; PULSE 70; RESP 16; TEMP 36.8; O2SAT 98; BMI 29.1
--- NOTE | 2025-03-04 14:29 | ED.GENADULT ---
HPI - General Adult General Chief complaint: Abdominal Pain Stated complaint: abd pain Related Data Home Medications ?Medication ?Instructions ?Recorded ?Confirmed cholecalciferol (vitamin D3) 25 25 mcg PO DAILY 09/25/24 mcg (1,000 unit) tablet Previous Rx's ?Medication ?Instructions ?Recorded omeprazole 20 mg capsule,delayed 20 mg PO BID 30 days #60 caps 11/27/24 release Allergies Allergy/AdvReac Type Severity Reaction Status Date / Time No Known Allergies Allergy Verified 03/04/25 16:35 [facility] Past Medical History Medical History (Updated 03/08/25 @ 10:18 by Amber Ornelas NP) COVID-19 GERD (gastroesophageal reflux disease) Family History Family History Maternal Aunt Liver cancer Social History Social History Alcohol intake: never Patient Tobacco Use Status: Never used Tobacco Substance Use Type: Marijuana Physical Exam ED Vital Signs: BMI result Body Mass Index 29.1 Course Course Course Narrative: This is a rapid medical exam performed by Sharon Ornelas NP: Additional HPI, ROS, PE not included below will be deferred to primary provider. Patient is a 19 y/o F presenting to the ED with c/o upper abd pain x 1 week, nausea and vomiting, diarrhea. Taking omeprazole without relief. Called GI, has appt there Tuesday. No active vomiting in triage. Plan: labs, viral swabs Patient left the emergency department before myself or any of the other clinicians could review or explain physical exam findings, test results, need or lack there of for additional testing, treatment options, or a treatment plan. Medical Decision Making Lab Data 03/04/25 14:39 03/04/25 14:39 Labs: Lab Results 03/04/25 Range/Units 14:39 WBC 7.4 (4.8-10.8) X10*3/uL RBC 4.33 (4.20-5.50) X10*6/uL Hgb 13.0 (12.0-16.0) g/dl Hct 38.1 (37.0-47.0) % MCV 88.0 (80.0-98.0) fL MCH 30.0 (27.0-33.0) pg MCHC 34.1 (31.0-35.0) g/dl RDW 11.9 (11.0-16.0) % Plt Count 276 (160-400) X10*3/uL MPV 9.8 (9.4-12.3) fL Immature Gran % (Auto) 0.4 (0.0-0.4) % Neut % (Auto) 75.1 H (45-73) % Lymph % (Auto) 19.4 L (20-40) % Grimes % (Auto) 4.3 (2-11) % Eos % (Auto) 0.4 (0-4) % Baso % (Auto) 0.4 (0-2) % Lymph # (Auto) 1.4 (1.2-4.9) X10*3/uL Grimes # (Auto) 0.3 (0.1-1.2) X10*3/uL Eos # (Auto) 0.0 (0.0-0.4) X10*3/uL Baso # (Auto) 0.0 (0.0-0.2) X10*3/uL Abs Immat Gran (auto) 0.03 (0.00-0.03) X10*3/uL Absolute Neuts (auto) 5.5 (2.0-8.3) x10*3/uL Absolute Nucleated RBC 0.000 (0.0-0.012) X10*3/uL Nucleated RBC % (auto) 0.0 (0.0-0.2) /100WBC Sodium 141 (135-145) mmol/L Potassium 3.6 (3.3-5.1) mmol/L Chloride 108 (96-108) mmol/L Carbon Dioxide 22 (22-29) mmol/L Anion Gap 15 (12-20) BUN 12 (9-16) mg/dL Creatinine 0.94 (0.5-1.4) mg/dL Estim Creat Clear Calc 88.0 Estimated GFR > 60 Random Glucose 116 H (60-115) mg/dL Calcium 9.7 (8.4-10.2) mg/dL Magnesium 1.7 (1.6-2.6) mg/dL Total Bilirubin 0.6 (0.0-1.0) mg/dL AST 20 (5-31) U/L ALT 14 (0-31) U/L Alkaline Phosphatase 73 (39-117) U/L Total Protein 7.7 (6.5-8.0) g/dL Albumin 4.7 (3.5-5.0) g/dL Beta HCG, Quant < 2 mIU/mL COVID-19 (ROMERO) Negative (Negative) COVID-19 Clin Com See Note Influenza Type A (DORINA) Negative (Negative) Influenza Type B (DORINA) Negative (Negative) Influenza A & B Note See Note Discharge Plan Discharge Clinical Impression: Nausea and vomiting in adult Patient Disposition: Left W/O Completing Treatment Prescriptions: No Action cholecalciferol (vitamin D3) 25 mcg (1,000 unit) tablet 25 mcg PO DAILY omeprazole 20 mg capsule,delayed release(DR/EC) 20 mg PO BID 30 Days Qty: 60 6RF Interventions: JI Worksheet Last Done: 03/04/25 15:00 Discharge Date/Time: 03/04/25 17:47
[2025-03-04 14:46] LABS: MANUAL DIFF FLAG NO
[2025-03-04 14:48] LABS: Hematocrit 38.1 % (37.0-47.0); Hemoglobin 13.0 g/dl (12.0-16.0); Imm Gran Abs Auto 0.03 X10*3/uL (0.00-0.03); Imm Gran Pct Auto 0.4 % (0.0-0.4); Lymphocytes Absolute Auto 1.4 X10*3/uL (1.2-4.9); Mean Corpuscular HGB Conc 34.1 g/dl (31.0-35.0); Mean Corpuscular Hemoglobin 30.0 pg (27.0-33.0); Mean Corpuscular Volume 88.0 fL (80.0-98.0); NRBC Abs Auto 0.000 X10*3/uL (0.0-0.012); NRBC Pct Auto 0.0 /100WBC (0.0-0.2); Platelet Count 276 X10*3/uL (160-400); Red Blood Count 4.33 X10*6/uL (4.20-5.50); White Blood Count 7.4 X10*3/uL (4.8-10.8)
[2025-03-04 15:07] LABS: IDNOW Serial# 16C4AD1C
[2025-03-04 15:08] LABS: COVID-19 Test Negative (Negative); IDNOW Serial# 152EDE1D; Influenza B2 Negative (Negative)
[2025-03-04 15:27] LABS: Alanine Aminotransferase 14 U/L (0-31); Albumin Level 4.7 g/dL (3.5-5.0); Alkaline Phosphatase 73 U/L (39-117); Anion Gap 15 (12-20); Aspartate Amino Transferase 20 U/L (5-31); Blood Urea Nitrogen 12 mg/dL (9-16); Calcium 9.7 mg/dL (8.4-10.2); Carbon Dioxide 22 mmol/L (22-29); Chloride 108 mmol/L (96-108); Creatinine Clr Calc Pharmacy 88.0; Estimated Glomerular Filt Rate > 60; Magnesium 1.7 mg/dL (1.6-2.6); Potassium 3.6 mmol/L (3.3-5.1); Sodium 141 mmol/L (135-145); Total Protein 7.7 g/dL (6.5-8.0)
--- NOTE | 2025-03-04 17:33 | PC.NURSE ---
At 17:28, this RN was alerted by grandparents that the patient passed out . Patient is seated in wheelchair. Respirations even/unlabored. Vital signs within normal range. Pt is not verbally responding to this RN. Sánchez Tesfaye (nurse discharge) notified. Just prior to this, the patient has been trashing, crying/yelling out, screaming. Grandparents have been continuously giving Radha water despite chief c/o abdominal pain, nausea. Was medicated previously for nausea with Zofran in triage. Ultrasound ordered by provider. Patient has hx of marijuana use. Grandparents unaware of this based on statements she doesn't do any drugs or alcohol or anything . POC 138, vital signs obtained/updated in chart.
--- OUTSIDE RECORDS SUMMARY | 2025-03-04 21:45 | XMS_ITS | Encounter Summary ---
Demographics Address [address] [place] [address] Home Phone Mobile Phone Preferred Language Angolan Marital Status Unknown Caodaism Affiliation Unknown Race Unknown Ethnic Group Unknown Author Organization [facility] Address [address] [place] [address] Phone Care Team Providers Care Manager Of Internal Name Role Phone Jennifer Gannon MD Primary Care Provider Encounter Details Date Type Department Care Team (Late st Contact Info) Description 02/03/2017 Conversion Encounter [facility] [address] [place] [address] Social History Tobacco Use Types Packs/Day Years [...] on filedocumented in this encounter Care Teams Manager Of Internal Relationship Specialty Start Date End Date Jennifer Gannon MD [address] [place] [address] PCP - General Pediatrics 11/16/19 08/30/24 documented as of this encounter
--- OUTSIDE RECORDS SUMMARY | 2025-03-04 21:45 | XMS_ITS | Clinical Summary ---
Demographics Address [address] [place] [address] Home Phone Mobile Phone Preferred Language Arabic Marital Status Unknown Jain Affiliation Unknown Race Unknown Ethnic Group Unknown Author Organization [facility] Address [address] [place] [address] Phone Care Team Providers Care Dust Mixer Name Role Phone Unavailable Primary Care Provider [...] screen q2yrs if continues to be obese. Immunizations Immunization Administration Dates Next Due COVID-19 [...] Other No family histo ry of Sudden /[place] under 55, No family history of Hyperlipidemia [...] 84 06/11/2024 9:39 AM EST Temperature 36.7 C (98.1 F) 06/05/2024 3:15 PM EST Respiratory Rate - - Oxygen Saturation - - Inhaled Oxygen Concentration - - Weight 72 kg (158 lb 12.8 oz) 06/11/2024 9:39 AM EST Height 159.3 cm (5' 2.72 ) 06/11/2024 9:39 AM ES T Body Mass Index 28.38 06/11/2024 9:39 AM EST Plan of Treatment Health Maintenance Due Date Last Done Comments DTaP,Tdap,and Td Vaccines (7 - Td or Tdap) 10/15/2024 10/15/2014, 02/01/2008, 02/03/2005, Additional history exists Influenza Vaccines (#1) 2025 10/19/19, 06/04/2022, 07/29/2021, Additional history exists COVID-19 Vaccine (2024-2 6 season) 2025 06/04/2022, 07/29/2021, 12/09/2020, Additional history exists Hepatitis B Vaccines Completed [...] Completed 10/19/2023, 06/04/2022 Procedures * Due to [place] Roll[place] law, this organization might not be sharing sensitive test results. Procedure Name Priority Date/Time Associated Diagnosis Comments CHLAMYDIA AND GONORRHEA, AMPLIFIED Routine 10/19/2023 1:49 PM EDT Encounter for screening examination for chlamydial infection from Last 3 Months or Most Recently Relevant to Health Maintenance Results * Due to [place] law, this organization might not be sharing sensitive test results. * Chlamydia and Gonorrhea, Amplified (10/19/2023 1:49 PM EDT) C trach ROMERO Negative Negative [facility] N gonorrhoeae ROMERO Negative Negative [facility] Urine (Urine) 10/19/2023 1:4 9 PM EDT 10/19/2023 Comment:UR Narrative [facility] - 10/20/2023 11:06 PM EDT Performed at: - [facility] [address] [id number] Perpetual Inventory Clerk: Divina Cabrera MD, Phone: [phone] us Jennifer Gannon MD LAB MICROBIOLOGY - GENERAL OR DERABLES Final Result [facility] [address] [place] [address] from Last 3 Months or Most Recently Relevant to Health Maintenance
--- OUTSIDE RECORDS SUMMARY | 2025-03-04 21:45 | XMS_ITS | Encounter Summary ---
Demographics Address [address] [place] [address] Home Phone Mobile Phone Preferred Language Nigerien Marital Status Unknown Yarsani Affiliation Unknown Race Unknown Ethnic Group Unknown Author Organization [facility] Address [address] [place] [address] Phone Care Team Providers Care College Physics Instructor Name Role Phone Jennifer Gannon MD Primary Care Provider [phone] Encounter Details Date Type Department Care Team (Late st Contact Info) Description 03/06/2012 Documentation [facility] Family Medicine [address] [place] [address] Family Medicine, Physician [facility] [place] [id number] Social History Tobacco Use Types Packs/Day Years [...] on filedocumented in this encounter Care Teams College Physics Instructor Relationship Specialty Start Date End Date Jennifer Gannon MD [address] [place] [address] PCP - General Pediatrics 11/16/19 08/30/24 documented as of this encounter
--- OUTSIDE RECORDS SUMMARY | 2025-03-04 21:45 | XMS_ITS | Encounter Summary ---
Demographics Address [address] [place] [address] Home Phone Mobile Phone Preferred Language Cambodian Marital Status Unknown Orthodoxy Affiliation Unknown Race Unknown Ethnic Group Unknown Author Organization [facility] Address [address] [place] [address] Phone Care Team Providers Care Php Software Engineer Name Role Phone Jennifer Gannon MD Primary Care Provider [phone] Encounter Details Date Type Department Care Team (Late st Contact Info) Description 06/18/2015 Documentation [facility] Family Medicine [address] [place] [address] Family Medicine, Physician [facility] [place] [id number] Social History Tobacco Use Types Packs/Day Years [...] on filedocumented in this encounter Care Teams Php Software Engineer Relationship Specialty Start Date End Date Jennifer Gannon MD [address] [place] [address] PCP - General Pediatrics 11/16/19 08/30/24 documented as of this encounter
--- OUTSIDE RECORDS SUMMARY | 2025-03-04 21:45 | XMS_ITS | Encounter Summary ---
Demographics Address [address] [place] [address] Home Phone Mobile Phone Preferred Language Cook Islander Marital Status Unknown Sabianist Affiliation Unknown Race Unknown Ethnic Group Unknown Author Organization [facility] Address [address] [place] [address] Phone Care Team Providers Care Button Station Worker Name Role Phone Jennifer Gannon MD Primary Care Provider Encounter Details Date Type Department Care Team (Late st Contact Info) Description 06/23/2015 Documentation [facility] [place] [place] Family Medicine [address] [place] [address] Family Medicine, Physician [facility] [place] [id number] Social History Tobacco Use Types Packs/Day Years [...] on filedocumented in this encounter Care Teams Button Station Worker Relationship Specialty Start Date End Date Jennifer Gannon MD [address] [place] [address] PCP - General Pediatrics 11/16/19 08/30/24 documented as of this encounter
== END 2025-03-04 17:47 | disposition left against medical advice (07) ==
PROVIDERS: Registered Nurse Emergency; Emergency Provider Emergency Medicine; PCP Pediatrics
DX: R11.2 Nausea with vomiting, unspecified (principal); R10.2 Pelvic and perineal pain; R19.7 Diarrhea, unspecified; Z11.52 Encounter for screening for COVID-19; Z03.818 Encounter for observation for suspected exposure to other biological agents ruled out
CPT/HCPCS: 80053; 83735; 84702; 85025; 87502; 87635; 99281; 99283

== ENCOUNTER 2025-03-04 16:21 | Emergency (ER) | payer OTHER, SELFPAY ==
--- NOTE | ~2025-03-04 | US_ITS ---
CLINICAL HISTORY: RUQ epigastric pain US abdomen limited Comparison: US - US ABDOMEN LIMITED - 06/30/24 16:58 EST Findings: The visualized pancreas is normal. The aorta and inferior vena cava are normal caliber. The liver is normal in size and echotexture. There is no intrahepatic bile duct dilatation. The common duct is 3 mm in diameter. Multiple small 2 mm polyps within the gallbladder. No gallbladder wall thickening. Sonographic Hernandez sign is positive. The main portal vein is antegrade. The right kidney is 9.7 cm in length. No ascites. IMPRESSION: 1. No definite cholelithiasis or evidence of acute cholecystitis however, sonographic Hernandez's sign is positive which is nonspecific. 2. Multiple small, 2 mm gallbladder polyps. This document has been electronically signed by: Shelbi Phan MD on 03/04/2025 19:53:10
--- NOTE | ~2025-03-04 | CT_ITS ---
CLINICAL HISTORY: abdominal pain CT abdomen and pelvis with contrast Comparison: US/MN - US ABDOMEN LIMITED - 03/04/25 17:44 EDT Findings: No consolidation or effusion. Unremarkable gallbladder. No biliary ductal dilatation. The liver, spleen, pancreas and adrenal glands are unremarkable. Enhancement of bilateral kidneys. No ureteral stones and no hydronephrosis or hydroureter. No perinephric stranding or perinephric fluid. No bowel obstruction, pneumoperitoneum, or pneumatosis. No free fluid. No loculated fluid collection. Appendix not identified. No pericecal inflammatory changes. Pelvic contents unremarkable. Abdominal aorta normal in size. The bones are intact. IMPRESSION: No acute findings. This document has been electronically signed by: Binta Torres MD on 03/05/2025 00:36:27
[2025-03-04 16:31] VITALS: BP 137/66; PULSE 98; RESP 20; TEMP 36.3; O2SAT 99; BMI 27.4
--- NOTE | 2025-03-04 16:32 | ED.GENADULT ---
HPI - General Adult General Chief complaint: Abdominal Pain Stated complaint: here earlier, coming back, worsening abd pain Time Seen by Provider: 03/04/25 22:00 Related Data Home Medications ?Medication ?Instructions ?Recorded ?Confirmed cholecalciferol (vitamin D3) 25 25 mcg PO DAILY 09/25/24 mcg (1,000 unit) tablet Previous Rx's ?Medication ?Instructions ?Recorded omeprazole 20 mg capsule,delayed 20 mg PO BID 30 days #60 caps 11/27/24 release Allergies Allergy/AdvReac Type Severity Reaction Status Date / Time No Known Allergies Allergy Verified 03/04/25 16:35 [facility] Past Medical History Medical History (Updated 11/27/24 @ 14:33 by MARCEL Velasco) COVID-19 GERD (gastroesophageal reflux disease) Family History Family History Maternal Aunt Liver cancer Social History Social History Alcohol intake: never Patient Tobacco Use Status: Never used Tobacco Smoked in Last 30 Days: No Use of substances other than those prescribed or required for medical reasons: Yes Substance Use Type: Marijuana Advance Directives: No Advance Directives Information Provided: No Patient : No Physical Exam ED Vital Signs: Vital Signs - 24 hr 03/04/25 16:31 03/04/25 17:42 03/04/25 20:45 Temperature 97.4 F 98.3 F 97.9 F Pulse Rate 98 73 59 Respiratory Rate 20 16 16 Blood Pressure 137/66 109/60 106/57 L Pulse Oximetry 99 100 99 Oxygen Delivery Method Room Air Room Air Room Air 03/04/25 21:29 Temperature 98.0 F Pulse Rate 93 Respiratory Rate 20 Blood Pressure 110/66 Pulse Oximetry 100 Oxygen Delivery Method Room Air BMI result Body Mass Index 27.4 Course Course Course Narrative: This is a rapid medical exam performed by Sharon Ornelas NP: Additional HPI, ROS, PE not included below will be deferred to primary provider. Patient is a 19 y/o F representing to the ED with c/o upper abd pain x 1 week, nausea and vomiting, diarrhea. Taking omeprazole without relief. Called GI, has appt there Tuesday. Seen here multiple times in the past for gastritis. Crying and hyperventilating in triage but calmed down on her own. Had labs and viral swabs done at first visit today. Did not obtain UA, will add this now as well as UDS. Upon review of EMR, patient regularly uses cannabis. Plan: UA, UDS Medications Administered Discontinued Medications Generic Name Dose Route Start Last Admin Trade Name Anastasia PRN Reason Stop Dose Admin Ondansetron HCl 4 mg 03/04/25 16:35 03/04/25 16:38 Ondansetron Odt 4 Mg Tab.Rapdis TRANSLINGU 03/04/25 16:36 4 mg ONCE ONE Administration Medical Decision Making Lab Data Labs: Lab Results 03/04/25 Range/Units 17:34 POC Glucose 138 H (60-115) mg/dL Discharge Plan Discharge Prescriptions: No Action cholecalciferol (vitamin D3) 25 mcg (1,000 unit) tablet 25 mcg PO DAILY omeprazole 20 mg capsule,delayed release(DR/EC) 20 mg PO BID 30 Days Qty: 60 6RF Print Language: Solomon Islander
[2025-03-04 17:38] LABS: Glucose, Whole Blood 138 mg/dL (60-115)
[2025-03-04 17:42] VITALS: BP 109/60; PULSE 73; RESP 16; TEMP 36.8; O2SAT 100
--- NOTE | 2025-03-04 17:42 | PC.NURSE ---
At 17:28, this RN was alerted by grandparents that the patient passed out . Patient is seated in wheelchair. Respirations even/unlabored. Vital signs within normal range. Pt is not verbally responding to this RN. Sánchez Tesfaye (transmitter engineer in charge) notified. Just prior to this, the patient has been trashing, crying/yelling out, screaming. Grandparents have been continuously giving Radha water despite chief c/o abdominal pain, nausea. Was medicated previously for nausea with Zofran in triage. Ultrasound ordered by provider. Patient has hx of marijuana use. Grandparents unaware of this based on statements she doesn't do any drugs or alcohol or anything . POC 138, vital signs obtained/updated in chart.
--- NOTE | 2025-03-04 20:21 | PC.NURSE ---
Dry heaving with small amounts of vomiting. french folder (Marisol Hurley) aware of ongoing pain & vomiting. Ultrasound report is written. Grandparents remain with pt in waiting room, have approached this RN multiple times. Pt remains in wheelchair with emesis bag.
[2025-03-04 20:45] VITALS: BP 106/57; PULSE 59; RESP 16; TEMP 36.6; O2SAT 99
[2025-03-04 21:29] VITALS: BP 110/66; PULSE 93; RESP 20; TEMP 36.7; O2SAT 100
[2025-03-04] MEDS: Magnesium Hydrox/Alum Hydrox 30 ML ORAL.SUSP PO (22:38)
[2025-03-04] MEDS: Lidocaine HCl Viscous 2 % 15 ML SOLUTION MUCOUS MEM (22:38)
[2025-03-04 22:40] LABS: Appearance Urine Clear; Glucose Urine UA Negative (Negative); PH >= 9.0 (5.0-9.0); Specific Gravity - Urine 1.025 (1.005-1.025); UMIC TRIGGER UACC YES
[2025-03-04 22:52] LABS: Cannabinoid Screen Urine POSITIVE (Not Detect)
[2025-03-04] MEDS: iohexoL 350 MG/ML 100 ML INFUS..BTL 85 ML IV (23:15)
[2025-03-05 02:25] VITALS: BP 119/76; PULSE 86; RESP 16; TEMP 37.2; O2SAT 99
== END 2025-03-05 02:25 | disposition home or self-care (01) ==
PROVIDERS: Registered Nurse Emergency; Emergency Provider Student in an Organized Health Care Education/Training Program
DX: R10.9 Unspecified abdominal pain (principal); R11.0 Nausea
CPT/HCPCS: 74177; 76705; 80307; 81001; 82947; 96361; 96372; 96374; 96375; 99284; 99285; J1308; J1630; J2765; Q9967

== ENCOUNTER → 2025-03-04 17:16 | Outpatient (BNV) | payer OTHER, SELFPAY | PROVIDERS: Visit Provider Student in an Organized Health Care Education/Training Program | DX: R10.84 Generalized abdominal pain (principal) | CPT/HCPCS: 74177; 76705 ==

== ENCOUNTER 2025-03-08 11:20 | Outpatient (AMB) | payer OTHER, SELFPAY ==
--- NOTE | 2025-03-08 11:22 | MHC.OFFVIS ---
Vital Signs 03/08/25 11:23 Height 5 ft 2 in Weight 154 lb 12.232 oz BMI 28.3 BP 115/71 Blood Pressure Location Rt brachial Position Sitting Pulse 98 Intake Visit Reasons: Abd pain Allergies No Known Allergies Allergy (Verified 03/08/25 11:26) HPI HPI Abd pain: Details: Assessment & Plan (1) GERD (gastroesophageal reflux disease): Code(s): K21.9 - Gastro-esophageal reflux disease without esophagitis Category: Medical (2) Nausea and vomiting in adult: Code(s): R11.2 - Nausea with vomiting, unspecified Category: Medical (3) Epigastric pain: Code(s): R10.13 - Epigastric pain Category: Medical Plan All of her symptoms seem to have improved on the omeprazole. That is really good, and since this has been a good response I think we can cancel the pancreatic a last taste I am knees pylori stool. HIDA scan was normal. She still has the upcoming EGD/colonoscopy and I think this will give us all the information that we need. Return office visit in 6 months Medications: Changed From omeprazole 20 mg PO DAILY 30 days 30 caps 6RF K21.9 - Gastro-esophageal reflux disease without esophagitis, R10.13 - Epigastric pain To omeprazole 20 mg PO BID 60 caps 6RF 30 days K21.9 - Gastro-esophageal reflux disease without esophagitis, R10.13 - Epigastric pain EGD BIOPSY TODAY'S VISIT [facility] Medical History (Updated 03/08/25 @ 10:18 by Amber Ornelas NP) COVID-19 GERD (gastroesophageal reflux disease) Family History Maternal Aunt Liver cancer Social History Alcohol intake: never Patient Tobacco Use Status: Never used Tobacco Substance Use Type: Marijuana Review of Systems Const Denies fatigue, Denies fever(s), Denies night sweats, Denies poor appetite and Reports weight loss Eyes Details: glasses Reports requires corrective lenses ENT Reports Normal hearing present, Denies dental pain, Denies dysphagia, Denies hearing loss, Denies mouth pain, Denies odynophagia, Denies throat swelling, Denies tongue swelling and Reports other (Dentition adequate) Card Reports no additional complaints Resp Reports no additional complaints GI Details: Reports abdominal pain, Denies melena, Denies bloating, Denies hematochezia, Denies constipation, Denies GI cramping, Denies dysphagia, Denies excessive flatus, Denies early satiety, Denies heartburn, Reports diarrhea, Denies nausea, Denies odynophagia, Denies vomiting and Denies hematemesis Skin/Breast Denies pruritus, Denies lesions, Denies rash and Denies jaundice Neuro Reports Normal hearing present and Denies Abnormal speech present Endo Denies fatigue Aller/Immun Denies throat swelling and Denies tongue swelling Physical Exam Vital Signs: Last Vital Signs Pulse 98 03/08/25 11:23 BP 115/71 03/08/25 11:23 BMI result Body Mass Index 28.3 Const General: cooperative, no acute distress, well developed and well groomed Nutritional Appearance: average body habitus and well nourished Orientation/consciousness: oriented to person, oriented to place and oriented to time Limitations: No language barrier HEENT Head: Yes normocephalic and Yes atraumatic Eyes General: appearance normal, both eyes and all related structures Pupils: Equal, round and reactive pupils present Neck Neck: Yes normal visual inspection and Yes no lymphadenopathy Thyroid: Thyroid normal Resp Effort & Inspection: normal respiratory effort and able to speak in complete sentences Auscultation: clear to auscultation bilaterally Cardio Rate: regular rate Rhythm: regular rhythm Heart sounds: Normal, physiologic split S2 sound present Peripheral pulses: radial pulses present and posterior tibial pulses present GI Inspection: No distended and No Abdominal panniculus present Palpation (GI): Soft to palpation, nontender, no guarding, not rigid and No hepatosplenomegaly present Percussion: Yes normal to percussion Auscultation: normal bowel sounds Rectal Exam - Female: deferred Skin General skin exam: no rashes or lesions noted, turgor normal, skin not dry, no jaundice, No spider nevi and no striae Rashes: no rashes Nails: normal Neuro General: oriented to person, oriented to place and oriented to time Cranial nerves: Yes Equal, round and reactive pupils present and Yes Normal hearing present Speech: No Abnormal speech present Extrem General: Yes normal to inspection, No clubbing, No cyanosis and No edema Psych Appearance: grossly normal and well kempt Mental Status: mental status grossly normal Speech and movement: Normal speech and movement present Affect: normal affect Attitude: cooperative Thought process: Normal thought process present and not confabulating Thought content: Normal thought content present Insight: Limited insight present (Psych) Judgement: Limited judgement present (Psych) Assessment & Plan Assessment & Plan (1) Epigastric pain: Code(s): R10.13 - Epigastric pain Category: Medical (2) GERD (gastroesophageal reflux disease): Code(s): K21.9 - Gastro-esophageal reflux disease without esophagitis Category: Medical Plan Initially, Talias epigastric pain resolved once we started omeprazole 20 mg twice a day. However, her pain has returned and she can not identify any precipitating factors such as new medications, vitamin supplements, change in dietary illness. She also has had a 10 lb weight loss unintended. She is also having diarrhea every morning about 2 watery movements. This used to happen intermittently but now it is happening every morning. To date, she has had a negative H pylori stool test and also a normal pancreatic elastase. She also had an ultrasound that just showed a few gallbladder polyps with a negative HIDA scan. We ordered an EGD but has not yet been scheduled. The diarrhea could be a class affect related to the omeprazole, but she has had multiple ER visits for this symptoms set so it does not seem likely that it is infectious in nature. If the diarrhea continues or worsens we can also consider IBD but I think peptic ulcer disease would be the most probable diagnosis at this stage. I suggest that we start her on a course of Carafate and she continue her omeprazole for now while we wait for the endoscopy to be scheduled. Return office visit in 4 weeks Medications: New sucralfate (Carafate) 2 grams (2 x 1 gram) PO QNOON 30 tabs 6RF Coding Level of Care Code Est Pt Level 3 (96297) Diagnoses Epigastric pain R10.13 GERD (gastroesophageal reflux disease) K21.9
[2025-03-08 11:23] VITALS: BP 115/71; PULSE 98; BMI 28.3
--- NOTE | 2025-03-08 11:23 | A.OFFVIS_ITS ---
Vital Signs 03/08/25 11:23 Height 5 ft 2 in Weight 154 lb 12.232 oz BMI 28.3 BP 115/71 Blood Pressure Location Rt brachial Position Sitting Pulse 98 Intake Visit Reasons: Abd pain Intake Note: Radha returns to in office follow up of abd pain. CC: Patient c/o stomach pain in the mornings, nausea and x3 episode of vomiting this months. She also reports every morning having loose stools. Per patient she began smoking again after quitting and the pain came back, but she stopped smoking again and continues having the pain. She believes pain might be genetic because her maternal grandmother suffers from gastritis and also maternal cousin. Farm Mortgage Agent Required: No Accompanied by: Self / Same As Patient Allergies No Known Allergies Allergy (Verified 03/08/25 11:26) REPLACED BY [facility] Medical History (Updated 03/08/25 @ 10:18 by Amber Ornelas NP) COVID-19 GERD (gastroesophageal reflux disease) Family History Maternal Aunt Liver cancer Social History Alcohol intake: never Patient Tobacco Use Status: Never used Tobacco Substance Use Type: Marijuana Coding
--- OUTSIDE RECORDS SUMMARY | 2025-03-08 12:01 | XMS_ITS | Clinical Summary ---
Demographics Address [address] [place] [address] Home Phone Mobile Phone Preferred Language Italian Marital Status Unknown Yarsani Affiliation Unknown Race Unknown Ethnic Group Unknown Author Organization [facility] Address [address] [place] [address] Phone Care Team Providers Care Compounding And Finishing Supervisor Name Role Phone Unavailable Primary Care Provider [...] Other No family histo ry of Sudden /[place] under 55, No family history of Hyperlipidemia [...] Completed 10/19/2023, 06/04/2022 Procedures * Due to [place] GigaPan law, this organization might not be sharing sensitive test results. Procedure Name Priority Date/Time Associated Diagnosis Comments CHLAMYDIA AND GONORRHEA, AMPLIFIED Routine 10/19/2023 1:49 PM EDT Encounter for screening examination for chlamydial infection from Last 3 Months or Most Recently Relevant to Health Maintenance Results * Due to [place] GigaPan law, this organization might not be sharing sensitive test results. * Chlamydia and Gonorrhea, Amplified (10/19/2023 1:49 PM EDT) C trach ROMERO Negative Negative [facility] N gonorrhoeae ROMERO Negative Negative [facility] Urine (Urine) 10/19/2023 1:4 9 PM EDT 10/19/2023 Comment:UR Narrative [facility] - 10/20/2023 11:06 PM EDT Performed at: - [facility] [address] [id number] Fur Dyer: Divina Cabrera MD, Phone: [phone] us Jennifer Gannon MD LAB MICROBIOLOGY - GENERAL OR DERABLES Final Result [facility] [address] [place] [address] from Last 3 Months or Most Recently Relevant to Health Maintenance
--- OUTSIDE RECORDS SUMMARY | 2025-03-08 12:01 | XMS_ITS | Encounter Summary ---
Demographics Address [address] [place] [address] Home Phone Mobile Phone Preferred Language Mozambican Marital Status Unknown Cheondoism Affiliation Unknown Race Unknown Ethnic Group Unknown Author Organization [facility] Address [address] [place] [address] Phone Care Team Providers Care Coater Hand Name Role Phone Jennifer Gannon MD Primary Care Provider [phone] Encounter Details Date Type Department Care Team (Late st Contact Info) Description 06/23/2015 Documentation [facility] Family Medicine [address] [place] [address] Family Medicine, Physician [facility] [place] [phone] Social History Tobacco Use Types Packs/Day Years [...] on filedocumented in this encounter Care Teams Coater Hand Relationship Specialty Start Date End Date Jennifer Gannon MD [address] [place] [address] PCP - General Pediatrics 11/16/19 08/30/24 documented as of this encounter
--- OUTSIDE RECORDS SUMMARY | 2025-03-08 12:01 | XMS_ITS | Encounter Summary ---
Demographics Address [address] [place] [address] Home Phone Mobile Phone Preferred Language Lao Marital Status Unknown Synagogue Affiliation Unknown Race Unknown Ethnic Group Unknown Author Organization [facility] Address [address] [place] [address] Phone Care Team Providers Care Dragline Operator Helper Name Role Phone Jennifer Gannon MD Primary Care Provider [phone] Encounter Details Date Type Department Care Team (Late st Contact Info) Description 06/18/2015 Documentation [facility] Family Medicine [address] [place] [address] Family Medicine, Physician [facility] [place] [phone] Social History Tobacco Use Types Packs/Day Years [...] on filedocumented in this encounter Care Teams Dragline Operator Helper Relationship Specialty Start Date End Date Jennifer Gannon MD [address] [place] [address] PCP - General Pediatrics 11/16/19 08/30/24 documented as of this encounter
--- OUTSIDE RECORDS SUMMARY | 2025-03-08 12:01 | XMS_ITS | Encounter Summary ---
Demographics Address [address] [place] [address] Home Phone Mobile Phone Preferred Language Botswanan Marital Status Unknown Jehovah'S Witness Affiliation Unknown Race Unknown Ethnic Group Unknown Author Organization [facility] Address [address] [place] [address] Phone Care Team Providers Care Fixed Capital Clerk Name Role Phone Jennifer Gannon MD Primary Care Provider [phone] Encounter Details Date Type Department Care Team (Late st Contact Info) Description 03/06/2012 Documentation [facility] Family Medicine [address] [place] [address] Family Medicine, Physician [facility] [place] [phone] Social History Tobacco Use Types Packs/Day Years [...] on filedocumented in this encounter Care Teams Fixed Capital Clerk Relationship Specialty Start Date End Date Jennifer Gannon MD [address] [place] [id number] PCP - General Pediatrics 11/16/19 08/30/24 documented as of this encounter
--- OUTSIDE RECORDS SUMMARY | 2025-03-08 12:01 | XMS_ITS | Encounter Summary ---
Demographics Address [address] [place] [address] Home Phone Mobile Phone Preferred Language New Zealander Marital Status Unknown Adventist Affiliation Unknown Race Unknown Ethnic Group Unknown Author Organization [facility] Address [address] [place] [address] Phone Care Team Providers Care Auto Refinisher Name Role Phone Jennifer Gannon MD Primary Care Provider Encounter Details Date Type Department Care Team (Late st Contact Info) Description 02/03/2017 Conversion Encounter [facility] [address] [place] [address] Social History Tobacco Use Types Packs/Day Years [...] on filedocumented in this encounter Care Teams Auto Refinisher Relationship Specialty Start Date End Date Jennifer Gannon MD [address] [place] [address] PCP - General Pediatrics 11/16/19 08/30/24 documented as of this encounter
== END 2025-03-08 11:49 | disposition home or self-care (01) ==
PROVIDERS: PCP Pediatrics; Visit Provider Nurse Practitioner
DX: R10.13 Epigastric pain (principal); K21.9 Gastro-esophageal reflux disease without esophagitis
CPT/HCPCS: 99213

== ENCOUNTER → 2025-03-08 11:20 | Outpatient (BNVA) | payer OTHER, SELFPAY | PROVIDERS: Visit Provider Nurse Practitioner | DX: K21.9 Gastro-esophageal reflux disease without esophagitis (principal); R11.2 Nausea with vomiting, unspecified; R10.13 Epigastric pain | CPT/HCPCS: 99212 ==

== ENCOUNTER 2025-03-19 23:38 | Emergency (ER) | payer OTHER, SELFPAY ==
[2025-03-19 23:54] VITALS: BP 112/66; PULSE 83; RESP 16; TEMP 37.1; O2SAT 95; BMI 27.4
--- OUTSIDE RECORDS SUMMARY | 2025-03-20 00:46 | XMS_ITS | Encounter Summary ---
Demographics Address [address] [place] [address] Home Phone Mobile Phone Preferred Language British Marital Status Unknown Rastafari Affiliation Unknown Race Unknown Ethnic Group Unknown Author Organization [facility] Address [address] [place] [address] Phone Care Team Providers Care Construction Safety Manager Name Role Phone Jennifer Gannon MD Primary Care Provider [phone] Encounter Details Date Type Department Care Team (Late st Contact Info) Description 02/03/2017 Conversion Encounter [facility] [address] [place] [address] Social History Tobacco Use Types Packs/Day Years [...] on filedocumented in this encounter Care Teams Construction Safety Manager Relationship Specialty Start Date End Date Jennifer Gannon MD [address] [place] [address] PCP - General Pediatrics 11/16/19 08/30/24 documented as of this encounter
--- OUTSIDE RECORDS SUMMARY | 2025-03-20 00:46 | XMS_ITS | Encounter Summary ---
Demographics Address [address] [place] [address] Home Phone Mobile Phone Preferred Language German Marital Status Unknown Jewish Affiliation Unknown Race Unknown Ethnic Group Unknown Author Organization [facility] Address [address] [place] [address] Phone Care Team Providers Care Consulting Analyst Name Role Phone Jennifer Gannon MD Primary Care Provider [phone] Encounter Details Date Type Department Care Team (Late st Contact Info) Description 06/18/2015 Documentation [facility] [place] [address] [place] [address] Family Medicine, Physician [facility] [place], [place] [id number] Social History Tobacco Use Types Packs/Day Years [...] on filedocumented in this encounter Care Teams Consulting Analyst Relationship Specialty Start Date End Date Jennifer Gannon MD [address] [place] [address] PCP - General Pediatrics 11/16/19 08/30/24 documented as of this encounter
--- OUTSIDE RECORDS SUMMARY | 2025-03-20 00:46 | XMS_ITS | Clinical Summary ---
Demographics Address [address] [place] [address] Home Phone Mobile Phone Preferred Language Syriac Marital Status Unknown Worship Affiliation Unknown Race Unknown Ethnic Group Unknown Author Organization [facility] Address [address] [place] [address] Phone Care Team Providers Care Library Media Assistant Name Role Phone Unavailable Primary Care Provider [...] Other No family histo ry of Sudden /[place] under 55, No family history of Hyperlipidemia [...] Completed 10/19/2023, 06/04/2022 Procedures * Due to [place] myParcelDelivery law, this organization might not be sharing sensitive test results. Procedure Name Priority Date/Time Associated Diagnosis Comments CHLAMYDIA AND GONORRHEA, AMPLIFIED Routine 10/19/2023 1:49 PM EDT Encounter for screening examination for chlamydial infection from Last 3 Months or Most Recently Relevant to Health Maintenance Results * Due to [place] myParcelDelivery law, this organization might not be sharing sensitive test results. * Chlamydia and Gonorrhea, Amplified (10/19/2023 1:49 PM EDT) C trach ROMERO Negative Negative [facility] N gonorrhoeae ROMERO Negative Negative [facility] Urine (Urine) 10/19/2023 1:4 9 PM EDT 10/19/2023 Comment:UR Narrative [facility] - 10/20/2023 11:06 PM EDT Performed at: - [facility] [address] [id number] Coremaking Machine Setter: Divina Cabrera MD, Phone: [phone] us Jennifer Gannon MD LAB MICROBIOLOGY - GENERAL OR DERABLES Final Result [facility] [address] [place] [address] from Last 3 Months or Most Recently Relevant to Health Maintenance
--- OUTSIDE RECORDS SUMMARY | 2025-03-20 00:46 | XMS_ITS | Encounter Summary ---
Demographics Address [address] [place] [address] Home Phone Mobile Phone Preferred Language Ukrainian Marital Status Unknown Yarsani Affiliation Unknown Race Unknown Ethnic Group Unknown Author Organization [facility] Address [address] [place] [address] Phone Care Team Providers Care Identification Technician Name Role Phone Jennifer Gannon MD Primary Care Provider [phone] Encounter Details Date Type Department Care Team (Late st Contact Info) Description 03/06/2012 Documentation [facility] [place] Family Medicine [address] [place] [address] Family Medicine, Physician [facility] [place], [place] [phone] Social History Tobacco Use Types Packs/Day Years [...] on filedocumented in this encounter Care Teams Identification Technician Relationship Specialty Start Date End Date Jennifer Gannon MD [address] [place] [address] PCP - General Pediatrics 11/16/19 08/30/24 documented as of this encounter
--- OUTSIDE RECORDS SUMMARY | 2025-03-20 00:46 | XMS_ITS | Encounter Summary ---
Demographics Address [address] [place] [address] Home Phone Mobile Phone Preferred Language Haitian Marital Status Unknown Zoroastrianism Affiliation Unknown Race Unknown Ethnic Group Unknown Author Organization [facility] Address [address] [place] [address] Phone Care Team Providers Care Drill Rig Operator Helper Name Role Phone Jennifer Gannon MD Primary Care Provider [phone] Encounter Details Date Type Department Care Team (Late st Contact Info) Description 06/23/2015 Documentation [facility] [place] Family Medicine [address] [place] [address] Family Medicine, Physician [facility] [place], [place] [id number] Social History Tobacco Use Types Packs/Day Years [...] on filedocumented in this encounter Care Teams Drill Rig Operator Helper Relationship Specialty Start Date End Date Jennifer Gannon MD [address] [place] [address] PCP - General Pediatrics 11/16/19 08/30/24 documented as of this encounter
[2025-03-20 00:50] LABS: Hematocrit 37.0 % (37.0-47.0); Hemoglobin 13.1 g/dl (12.0-16.0); Imm Gran Abs Auto 0.02 X10*3/uL (0.00-0.03); Imm Gran Pct Auto 0.3 % (0.0-0.4); Lymphocytes Absolute Auto 2.3 X10*3/uL (1.2-4.9); MANUAL DIFF FLAG NO; Mean Corpuscular HGB Conc 35.4 g/dl (31.0-35.0); Mean Corpuscular Hemoglobin 30.6 pg (27.0-33.0); Mean Corpuscular Volume 86.4 fL (80.0-98.0); NRBC Abs Auto 0.000 X10*3/uL (0.0-0.012); NRBC Pct Auto 0.0 /100WBC (0.0-0.2); Platelet Count 275 X10*3/uL (160-400); Red Blood Count 4.28 X10*6/uL (4.20-5.50); White Blood Count 6.6 X10*3/uL (4.8-10.8)
[2025-03-20 01:04] LABS: COVID-19 Test Negative (Negative); IDNOW Serial# 55D5AD1C; IDNOW Serial# 58CA691E; Influenza B2 Negative (Negative)
[2025-03-20 01:12] LABS: Alanine Aminotransferase 15 U/L (0-31); Albumin Level 4.5 g/dL (3.5-5.0); Alkaline Phosphatase 70 U/L (39-117); Anion Gap 14 (12-20); Aspartate Amino Transferase 32 U/L (5-31); Blood Urea Nitrogen 14 mg/dL (9-16); Calcium 9.3 mg/dL (8.4-10.2); Carbon Dioxide 21 mmol/L (22-29); Chloride 110 mmol/L (96-108); Creatinine Clr Calc Pharmacy 90.4; Estimated Glomerular Filt Rate > 60; Lipase 30 U/L (8-78); Magnesium 2.1 mg/dL (1.6-2.6); Potassium 3.6 mmol/L (3.3-5.1); Sodium 141 mmol/L (135-145); Total Protein 7.4 g/dL (6.5-8.0)
== END 2025-03-20 01:55 | disposition left against medical advice (07) ==
PROVIDERS: Emergency Provider Emergency Medicine
DX: R10.9 Unspecified abdominal pain (principal); Z53.21 Procedure and treatment not carried out due to patient leaving prior to being seen by health care provider
CPT/HCPCS: 36415; 80053; 83690; 83735; 84702; 85025; 87502; 87635; 99281

== ENCOUNTER 2025-03-20 15:23 | Emergency (ER) | payer OTHER, SELFPAY ==
--- NOTE | ~2025-03-20 | US_ITS ---
CLINICAL HISTORY: pain, dysmenorrhea US Pelvis Transabdominal and Transvaginal COMPARISON: US - PELVIS ULTRASOUND [id number] - 07/30/19 11:43 EST FINDINGS: Transabdominal scanning performed for overall anatomy. Transvaginal scanning performed for additional detail. Uterus measures 6.2 x 3.4 x 3.8 cm. Normal echotexture. No mass. Anteverted, anteflexed. Trace anechoic fluid in the endocervical canal, which could be physiologic or due to blood products. Normal endometrium, 8 mm thickness. No endometrial mass. Right ovary: 3.2 x 1.7 x 1.6 cm. No mass. No visible Doppler color blood flow. Left ovary: 2.4 x 0.8 x 1.1 cm. No mass. No visible Doppler color blood flow. No free fluid. IMPRESSION: No visible blood flow in either ovary on Doppler imaging. Arterial and venous waveforms were not obtained. Torsion in either ovary cannot be excluded. Please correlate with clinical findings. This document has been electronically signed by: Jose Clement MD on 03/20/2025 21:42:54
[2025-03-20 15:59] VITALS: BP 138/80; PULSE 90; RESP 18; TEMP 36.2; O2SAT 98; BMI 27.5
--- NOTE | 2025-03-20 17:38 | ED.ABDPAIN ---
HPI - Abdominal Pain General Chief Complaint: Abdominal Pain Stated Complaint: Abd pain Time Seen by Provider: 03/20/25 20:18 Source: patient, RN notes reviewed and old records reviewed Mode of arrival: ambulatory Limitations: no limitations History of Present Illness ED Provider: Kim PICHARDO narrative: 19-year-old female presents for evaluation of GERD presents for evaluation of abdominal pain and vaginal bleeding Patient reports she has had abdominal pain on and off for the last year. She is on multiple evaluations, CT scans, ultrasounds, she also had a HIDA scan and october. She is waiting on a call back from for an upper endoscopy. She was seen here on 03/05/[address] scan of the abdomen pelvis as well as an ultrasound of her gallbladder which did not show any acute findings. The patient be presents to the ER due to vaginal bleeding that started yesterday and the patient is not due for a menstrual cycle for another 4 days. She denies any vaginal discharge outside of the ordinary. She has not started or stopped control this is recently. Denies any fevers or chills. She is not concerned about sexually transmitted infections She reports some urinary frequency and pain after urination No other complaints or concerns at this time Related Data Home Medications ?Medication ?Instructions ?Recorded ?Confirmed cholecalciferol (vitamin D3) 25 25 mcg PO DAILY 09/25/24 mcg (1,000 unit) tablet Previous Rx's ?Medication ?Instructions ?Recorded omeprazole 20 mg capsule,delayed 20 mg PO BID 30 days #60 caps 11/27/24 release sucralfate 1 gram tablet (Carafate) 2 g (2 x 1 gram) PO QNOON #30 tabs 03/08/25 cefuroxime axetil 250 mg tablet 250 mg PO Q12H #10 tabs 03/20/25 Allergies Allergy/AdvReac Type Severity Reaction Status Date / Time No Known Allergies Allergy Verified 03/20/25 16:01 Review of Systems Constitutional: Denies chills Eyes: Denies blurry vision Denies vertigo and Denies dizziness Cardiovascular: Denies chest pain Respiratory: Denies cough Gastrointestinal: Reports abdominal pain, Denies melena, Denies hematochezia, Denies constipation, Denies GI cramping, Reports nausea and Denies vomiting Genitourinary: Reports menorrhagia, Reports dysuria, Reports pelvic pain and Denies vaginal discharge Skin/Breast: Denies rash Denies vertigo and Denies dizziness [facility] Past Medical History Medical History (Updated 03/20/25 @ 21:55 by Jv Alvarez) COVID-19 GERD (gastroesophageal reflux disease) Family History Family History Maternal Aunt Liver cancer Social History Social History Alcohol intake: never Patient Tobacco Use Status: Never used Tobacco Smoked in Last 30 Days: No Substance Use Type: Marijuana Advance Directives: No Advance Directives Information Provided: No Physical Exam ED Vital Signs: Vital Signs - 24 hr 03/20/25 15:59 03/20/25 20:11 Temperature 97.2 F 98.0 F Pulse Rate 90 89 Respiratory Rate 18 16 Blood Pressure 138/80 116/70 Pulse Oximetry 98 98 Oxygen Delivery Method Room Air Room Air BMI result Body Mass Index 27.5 Const General: healthy appearing, comfortable, no acute distress, alert and awake Nutritional Appearance: well nourished Orientation/consciousness: patient oriented x3 HENMT Head: Yes normocephalic and Yes atraumatic Eyes Eyelids: Yes eyelids normal Conjunctivae: conjunctivae normal Sclerae: sclerae normal Corneas: corneas normal Pupils: Equal, round and reactive pupils present EOM: EOMs intact bilaterally Neck Neck: Yes full ROM Resp Effort & Inspection: normal respiratory effort, able to speak in complete sentences and not labored GI Inspection: No distended Palpation (GI): Soft to palpation, not firm, nontender, no guarding and not rigid Skin General skin exam: elasticity normal Neuro General: patient oriented x3 Cranial nerves: Yes Equal, round and reactive pupils present and Yes Bilaterally intact EOM present Cognition (Neuro): normal cognition Extrem Other: Moving all extremities well without any obvious deformities Course Course Course Narrative: This is an RME: Additional HPI, ROS, PE not included below will be deferred to primary provider. RME assessment and note performed by: Linnea Richardson PA-C This is a 19-year-old female who presents emergency department with complaints of abdominal pain. Patient states that she is also having vaginal bleeding, states that she has soaked through 1 pad today. He is not due for her period until Charles. Also endorsing some vomiting. Plan: Labs, UA, further ER evaluation needed. Reevaluation(s) Reevaluation #1: The patient's ultrasound shows no obvious fibroids or cysts. No flow it seemed to either ovary. I suspect this is more likely a technique issue. When I re-evaluate the patient, she reports that she has no lower abdominal pain whatsoever. Most of her lower abdominal pain was only after urinating and did not lateralize to either side. I have a very low suspicion for torsion. The patient be discharged to follow up with OBGYN. The patient did have mild UTI symptoms with pain after urinating and urinary frequency, we will treat with cefuroxime b.i.d. x5 days Time: 21:52 Medical Decision Making Medical Decision Making [facility] Narrative: 19-year-old female with a past medical history as above presents for evaluation abdominal pain and vaginal bleeding. Her abdominal pain has been going on for over a year, she had a recent CT scan of the abdomen pelvis as well as an ultrasound, labs are reassuring. No leukocytosis, left shift or significant anemia. Chemistries without concerning abnormalities. Renal function normal limits, LFTs are normal limits. The patient is not she had labs this morning just after midnight with no significant changes. She is not concerned for sexually transmitted infections. She reports that she has a pelvic examination in the past. I discussed possible pelvic examination which she declines, discussed pelvic ultrasound which she would like to have performed to evaluate for uterine fibroids. For her upper abdominal pain I recommend that she follow up with GI which is already in the works. Differential Diagnosis Differential Diagnoses: The differential diagnosis associated with the presentation includes Pelvic pain UTI Uterine fibroids Ovarian cyst Lab Data [facility] Lab Attestation statement: I reviewed the patient's lab results. As above 03/20/25 17:43 03/20/25 17:43 Labs: Lab Results 03/20/25 Range/Units 17:43 WBC 7.0 (4.8-10.8) X10*3/uL RBC 4.38 (4.20-5.50) X10*6/uL Hgb 13.1 (12.0-16.0) g/dl Hct 39.1 (37.0-47.0) % MCV 89.3 (80.0-98.0) fL MCH 29.9 (27.0-33.0) pg MCHC 33.5 (31.0-35.0) g/dl RDW 12.2 (11.0-16.0) % Plt Count 261 (160-400) X10*3/uL MPV 9.9 (9.4-12.3) fL Immature Gran % (Auto) 0.1 (0.0-0.4) % Neut % (Auto) 58.7 (45-73) % Lymph % (Auto) 31.2 (20-40) % [place] % (Auto) 5.6 (2-11) % Eos % (Auto) 3.7 (0-4) % Baso % (Auto) 0.7 (0-2) % Lymph # (Auto) 2.2 (1.2-4.9) X10*3/uL [place] # (Auto) 0.4 (0.1-1.2) X10*3/uL Eos # (Auto) 0.3 (0.0-0.4) X10*3/uL Baso # (Auto) 0.1 (0.0-0.2) X10*3/uL Abs Immat Gran (auto) 0.01 (0.00-0.03) X10*3/uL Absolute Neuts (auto) 4.1 (2.0-8.3) x10*3/uL Absolute Nucleated RBC 0.000 (0.0-0.012) X10*3/uL Nucleated RBC % (auto) 0.0 (0.0-0.2) /100WBC Sodium 140 (135-145) mmol/L Potassium 4.0 (3.3-5.1) mmol/L Chloride 108 (96-108) mmol/L Carbon Dioxide 25 (22-29) mmol/L Anion Gap 11 L (12-20) BUN 15 (9-16) mg/dL Creatinine 0.88 (0.5-1.4) mg/dL Estim Creat Clear Calc 91.5 Estimated GFR > 60 Random Glucose 103 (60-115) mg/dL Calcium 9.2 (8.4-10.2) mg/dL Total Bilirubin 0.8 (0.0-1.0) mg/dL AST 21 (5-31) U/L ALT 15 (0-31) U/L Alkaline Phosphatase 69 (39-117) U/L Total Protein 7.5 (6.5-8.0) g/dL Albumin 4.4 (3.5-5.0) g/dL Urine Color Dark Yellow Urine Appearance Cloudy Urine pH 5.5 (5.0-9.0) Ur Specific [place] 1.025 (1.005-1.025) Urine Protein 100 (2+) H (Neg-Trace) mg/dL Urine Glucose (UA) Negative (Negative) mg/dL Urine Ketones 15 (Negative) mg/dL Urine Blood Large (3+) H (Negative) Urine Nitrite Negative (Negative) Ur Leukocyte Esterase Small (1+) H (Negative) Urine RBC >20 H (0-2) /HPF Urine WBC 6-10 H (0-5) /HPF Ur Squamous Epith Cells 3-5 (0-2) /HPF Urine Bacteria Trace (None Seen) Hyaline Casts 3-5 (0-2) /LPF Urine Test NEGATIVE (NEGATIVE) Discharge Plan Discharge Clinical Impression: Pelvic pain, Dysmenorrhea, Urinary tract infection Patient Disposition: Home, Self-Care Instructions: Dysmenorrhea (ED), Urinary Tract Infection in Women (ED) Additional Instructions: Your ultrasound did not show any cyst or uterine fibroid to explain your vaginal bleeding. The medical records field technician had a hard time seeing arterial flow to the ovaries. If you develop severe pain to other side of the lower abdomen, you should return for repeat ultrasound. In the meantime, follow up with OBGYN. You may take cefuroxime twice daily for 5 days to treat UTI symptoms Prescriptions: New cefuroxime axetil 250 mg tablet 250 mg PO Q12H Qty: 10 0RF No Action cholecalciferol (vitamin D3) 25 mcg (1,000 unit) tablet 25 mcg PO DAILY omeprazole 20 mg capsule,delayed release(DR/EC) 20 mg PO BID 30 Days Qty: 60 6RF sucralfate [Carafate] 1 gram tablet 2 g PO QNOON Qty: 30 6RF Referrals: Ankush Wyman MD [Physician, SOAP INSPECTOR] Referral Note: dysmennorhea Stand Alone Forms: Work/School Release Print Language: Swazi
[2025-03-20 17:48] LABS: MANUAL DIFF FLAG NO
[2025-03-20 17:49] LABS: Hematocrit 39.1 % (37.0-47.0); Hemoglobin 13.1 g/dl (12.0-16.0); Imm Gran Abs Auto 0.01 X10*3/uL (0.00-0.03); Imm Gran Pct Auto 0.1 % (0.0-0.4); Lymphocytes Absolute Auto 2.2 X10*3/uL (1.2-4.9); Mean Corpuscular HGB Conc 33.5 g/dl (31.0-35.0); Mean Corpuscular Hemoglobin 29.9 pg (27.0-33.0); Mean Corpuscular Volume 89.3 fL (80.0-98.0); NRBC Abs Auto 0.000 X10*3/uL (0.0-0.012); NRBC Pct Auto 0.0 /100WBC (0.0-0.2); Platelet Count 261 X10*3/uL (160-400); Red Blood Count 4.38 X10*6/uL (4.20-5.50); White Blood Count 7.0 X10*3/uL (4.8-10.8)
[2025-03-20 17:51] LABS: Appearance Urine Cloudy; Glucose Urine UA Negative (Negative); PH 5.5 (5.0-9.0); Specific Gravity - Urine 1.025 (1.005-1.025); UMIC TRIGGER UACC YES
[2025-03-20 17:55] LABS: UPreg QC Valid YES
[2025-03-20 18:03] LABS: Alanine Aminotransferase 15 U/L (0-31); Albumin Level 4.4 g/dL (3.5-5.0); Alkaline Phosphatase 69 U/L (39-117); Anion Gap 11 (12-20); Aspartate Amino Transferase 21 U/L (5-31); Blood Urea Nitrogen 15 mg/dL (9-16); Calcium 9.2 mg/dL (8.4-10.2); Carbon Dioxide 25 mmol/L (22-29); Chloride 108 mmol/L (96-108); Creatinine Clr Calc Pharmacy 91.5; Estimated Glomerular Filt Rate > 60; Potassium 4.0 mmol/L (3.3-5.1); Sodium 140 mmol/L (135-145); Total Protein 7.5 g/dL (6.5-8.0)
[2025-03-20 19:54] LABS: UACC Culture Trigger YES
[2025-03-20 20:11] VITALS: BP 116/70; PULSE 89; RESP 16; TEMP 36.7; O2SAT 98
--- OUTSIDE RECORDS SUMMARY | 2025-03-20 20:15 | XMS_ITS | Encounter Summary ---
Demographics Address [address] [place] [address] Home Phone Mobile Phone Preferred Language Hong Konger Marital Status Unknown Cheondoism Affiliation Unknown Race Unknown Ethnic Group Unknown Author Organization [facility] Address [address] [place] [address] Phone Care Team Providers Care Cabin Crew Name Role Phone Jennifer Gannon MD Primary Care Provider [phone] Encounter Details Date Type Department Care Team (Late st Contact Info) Description 02/03/2017 Conversion Encounter [facility] [address] [place] [address] Social History Tobacco Use Types Packs/Day Years [...] on filedocumented in this encounter Care Teams Cabin Crew Relationship Specialty Start Date End Date Jennifer Gannon MD [address] [place] [address] PCP - General Pediatrics 11/16/19 08/30/24 documented as of this encounter
--- OUTSIDE RECORDS SUMMARY | 2025-03-20 20:15 | XMS_ITS | Encounter Summary ---
Demographics Address [address] [place] [address] Home Phone Mobile Phone Preferred Language Niuean Marital Status Unknown Evangelical Affiliation Unknown Race Unknown Ethnic Group Unknown Author Organization [facility] Address [address] [place] [address] Phone Care Team Providers Care Bleach Analyst Name Role Phone Jennifer Gannon MD Primary Care Provider [phone] Encounter Details Date Type Department Care Team (Late st Contact Info) Description 06/18/2015 Documentation [facility] [place] [address] [place] [address] Family Medicine, Physician [facility] [place], [place] [phone] Social History Tobacco Use Types Packs/Day Years [...] on filedocumented in this encounter Care Teams Bleach Analyst Relationship Specialty Start Date End Date Jennifer Gannon MD [address] [place] [address] PCP - General Pediatrics 11/16/19 08/30/24 documented as of this encounter
--- OUTSIDE RECORDS SUMMARY | 2025-03-20 20:15 | XMS_ITS | Encounter Summary ---
Demographics Address [address] [place] [address] Home Phone Mobile Phone Preferred Language Citizen Of [place] Marital Status Unknown Confucianism Affiliation Unknown Race Unknown Ethnic Group Unknown Author Organization [facility] Address [address] [place] [address] Phone Care Team Providers Care Him Coder Name Role Phone Jennifer Gannon MD Primary Care Provider [phone] Encounter Details Date Type Department Care Team (Late st Contact Info) Description 03/06/2012 Documentation [facility] [place] [address] [place] [address] Family Medicine, Physician [facility] [place] [phone] Social History Tobacco Use Types Packs/Day Years [...] on filedocumented in this encounter Care Teams Him Coder Relationship Specialty Start Date End Date Jennifer Gannon MD [address] [place] [address] PCP - General Pediatrics 11/16/19 08/30/24 documented as of this encounter
--- OUTSIDE RECORDS SUMMARY | 2025-03-20 20:15 | XMS_ITS | Encounter Summary ---
Demographics Address [address] [place] [address] Home Phone Mobile Phone Preferred Language Belgian Marital Status Unknown Protestant Affiliation Unknown Race Unknown Ethnic Group Unknown Author Organization [facility] Address [address] [place] [address] Phone Care Team Providers Care Punch Molder Name Role Phone Jennifer Gannon MD Primary Care Provider [phone] Encounter Details Date Type Department Care Team (Late st Contact Info) Description 06/23/2015 Documentation [facility] Family Medicine [address] [place] [address] Family Medicine, Physician [facility] [place], [place] [phone] Social History Tobacco Use Types Packs/Day Years [...] on filedocumented in this encounter Care Teams Punch Molder Relationship Specialty Start Date End Date Jennifer Gannon MD [address] [place] [address] PCP - General Pediatrics 11/16/19 08/30/24 documented as of this encounter
--- OUTSIDE RECORDS SUMMARY | 2025-03-20 20:15 | XMS_ITS | Clinical Summary ---
Demographics Address [address] [place] [address] Home Phone Mobile Phone Preferred Language Romanian Marital Status Unknown Tenriism Affiliation Unknown Race Unknown Ethnic Group Unknown Author Organization [facility] Address [address] [place] [address] Phone Care Team Providers Care Stucco Applicator Name Role Phone Unavailable Primary Care Provider [...] Other No family histo ry of Sudden /[place] under 55, No family history of Hyperlipidemia [...] Completed 10/19/2023, 06/04/2022 Procedures * Due to [place] law, this organization might not be sharing sensitive test results. Procedure Name Priority Date/Time Associated Diagnosis Comments CHLAMYDIA AND GONORRHEA, AMPLIFIED Routine 10/19/2023 1:49 PM EDT Encounter for screening examination for chlamydial infection from Last 3 Months or Most Recently Relevant to Health Maintenance Results * Due to [place] law, this organization might not be sharing sensitive test results. * Chlamydia and Gonorrhea, Amplified (10/19/2023 1:49 PM EDT) C trach ROMERO Negative Negative [facility] N gonorrhoeae ROMERO Negative Negative [facility] Urine (Urine) 10/19/2023 1:4 9 PM EDT 10/19/2023 Comment:UR Narrative [facility] - 10/20/2023 11:06 PM EDT Performed at: - [facility] [address] [id number] Ship Worker: Divina Cabrera MD, Phone: [phone] us Jennifer Gannon MD LAB MICROBIOLOGY - GENERAL OR DERABLES Final Result [facility] [address] [place] [address] from Last 3 Months or Most Recently Relevant to Health Maintenance
--- NOTE | 2025-03-20 20:30 | PC.NURSE ---
Assumed care of pt, presents with abd pain and vaginal bleeding x1 day, aaox4, nad, family at bedside
[2025-03-20 22:31] VITALS: BP 116/70; PULSE 89; RESP 16; TEMP 36.7; O2SAT 98
== END 2025-03-20 22:34 | disposition home or self-care (01) ==
PROVIDERS: Emergency Provider Student in an Organized Health Care Education/Training Program
DX: N39.0 Urinary tract infection, site not specified (principal); N93.9 Abnormal uterine and vaginal bleeding, unspecified; R10.20 Pelvic and perineal pain unspecified side; N94.6 Dysmenorrhea, unspecified
CPT/HCPCS: 36415; 76830; 76856; 80053; 81001; 81025; 85025; 87086; 99284

== ENCOUNTER → 2025-03-20 20:44 | Outpatient (BNV) | payer OTHER, SELFPAY | PROVIDERS: Emergency Provider Student in an Organized Health Care Education/Training Program; Visit Provider Radiology Diagnostic Radiology | DX: N94.6 Dysmenorrhea, unspecified (principal); R10.9 Unspecified abdominal pain | CPT/HCPCS: 76830; 76856 ==

== ENCOUNTER 2025-04-16 15:49 | Outpatient (AMB) | payer OTHER, SELFPAY ==
--- NOTE | 2025-04-16 15:52 | MHC.OFFVIS ---
Vital Signs 04/16/25 15:53 Height 5 ft 2 in Weight 160 lb 0.889 oz BMI 29.3 BP 116/64 Blood Pressure Location Lt brachial Position Sitting Pulse 87 Intake Visit Reasons: epi pain, diarrhea Intake Note: Radha presents to in office follow up of epigastric pain. CC: Patient reports doing well and denies any new GI concerns. Oil [employer] Principal Required: No Accompanied by: Self / Same As Patient Allergies No Known Allergies Allergy (Verified 04/16/25 15:56) HPI HPI epi pain, diarrhea: Details: Assessment & Plan (1) Epigastric pain: Code(s): R10.13 - Epigastric pain Category: Medical (2) GERD (gastroesophageal reflux disease): Code(s): K21.9 - Gastro-esophageal reflux disease without esophagitis Category: Medical Plan Initially, Radha's epigastric pain resolved once we started omeprazole 20 mg twice a day. However, her pain has returned and she can not identify any precipitating factors such as new medications, vitamin supplements, change in dietary illness. She also has had a 10 lb weight loss unintended. She is also having diarrhea every morning about 2 watery movements. This used to happen intermittently but now it is happening every morning. To date, she has had a negative H pylori stool test and also a normal pancreatic elastase. She also had an ultrasound that just showed a few gallbladder polyps with a negative HIDA scan. We ordered an EGD but has not yet been scheduled. The diarrhea could be a class affect related to the omeprazole, but she has had multiple ER visits for this symptoms set so it does not seem likely that it is infectious in nature. If the diarrhea continues or worsens we can also consider IBD but I think peptic ulcer disease would be the most probable diagnosis at this stage. I suggest that we start her on a course of Carafate and she continue her omeprazole for now while we wait for the endoscopy to be scheduled. Return office visit in 4 weeks Medications: New sucralfate (Carafate) 2 grams (2 x 1 gram) PO QNOON 30 tabs 6RF TODAY'S VISIT [facility] Medical History COVID-19 GERD (gastroesophageal reflux disease) Family History Maternal Aunt Liver cancer Social History Alcohol intake: never Patient Tobacco Use Status: Never used Tobacco Substance Use Type: Marijuana Review of Systems Const Denies fatigue, Denies fever(s), Denies night sweats, Denies poor appetite and Denies weight loss Eyes Details: glassesa Reports requires corrective lenses ENT Reports Normal hearing present, Denies dental pain, Denies dysphagia, Denies hearing loss, Denies mouth pain, Denies odynophagia, Denies throat swelling, Denies tongue swelling and Reports other (Dentition adequate) Card Reports no additional complaints Resp Reports no additional complaints GI Details: Reports abdominal pain, Denies melena, Denies bloating, Denies hematochezia, Denies constipation, Denies GI cramping, Denies dysphagia, Denies excessive flatus, Denies early satiety, Reports heartburn, Denies diarrhea, Denies nausea, Denies odynophagia, Denies vomiting and Denies hematemesis Skin/Breast Denies pruritus, Denies lesions, Denies rash and Denies jaundice Neuro Reports Normal hearing present and Denies Abnormal speech present Endo Denies fatigue Aller/Immun Denies throat swelling and Denies tongue swelling Physical Exam Vital Signs: Last Vital Signs Pulse 87 04/16/25 15:53 BP 116/64 04/16/25 15:53 BMI result Body Mass Index 29.3 Const General: cooperative, no acute distress, well developed and well groomed Nutritional Appearance: well nourished and obese Orientation/consciousness: oriented to person, oriented to place and oriented to time Limitations: No language barrier HEENT Head: Yes normocephalic and Yes atraumatic Eyes General: appearance normal, both eyes and all related structures Pupils: Equal, round and reactive pupils present Neck Neck: Yes normal visual inspection and Yes no lymphadenopathy Thyroid: Thyroid normal Resp Effort & Inspection: normal respiratory effort and able to speak in complete sentences Auscultation: clear to auscultation bilaterally Cardio Rate: regular rate Rhythm: regular rhythm Heart sounds: Normal, physiologic split S2 sound present Peripheral pulses: radial pulses present and posterior tibial pulses present GI Inspection: No distended, No Abdominal panniculus present and Yes obesity Palpation (GI): Soft to palpation, nontender, no guarding, not rigid and No hepatosplenomegaly present Percussion: Yes normal to percussion Auscultation: normal bowel sounds Rectal Exam - Female: deferred Skin General skin exam: no rashes or lesions noted, turgor normal, skin not dry, no jaundice, No spider nevi and no striae Rashes: no rashes Nails: normal Neuro General: oriented to person, oriented to place and oriented to time Cranial nerves: Yes Equal, round and reactive pupils present and Yes Normal hearing present Speech: No Abnormal speech present Extrem General: Yes normal to inspection, No clubbing, No cyanosis and No edema Psych Appearance: grossly normal and well kempt Mental Status: mental status grossly normal Speech and movement: Normal speech and movement present Affect: normal affect Attitude: cooperative Thought process: Normal thought process present and not confabulating Thought content: Normal thought content present Insight: Good insight present (Psych) Judgement: Good judgement present (Psych) Assessment & Plan Assessment & Plan (1) Epigastric pain: Code(s): R10.13 - Epigastric pain Category: Medical (2) GERD (gastroesophageal reflux disease): Code(s): K21.9 - Gastro-esophageal reflux disease without esophagitis Category: Medical Plan SHE IS CURRENTLY ON OMEPRAZOLE AND CARAFATE. Fortunately, her symptoms have improved by about 55% with the Carafate. I am glad of this since we did not seem to be progressing with the omeprazole. This has also helped with the diarrhea. The EGD may be helpful in determining why we continue to need this medication. She does have gallbladder polyps but no sign of gallstones or severe gallbladder dysfunction. Obviously peptic ulcer disease could be in the differential diagnosis. She is aware of her upcoming EGD and I will see her after that. EGD 04/30/2025 BIOPSY Medications: Refilled sucralfate (Carafate) 2 grams (2 x 1 gram) PO QNOON 30 tabs 6RF omeprazole 20 mg PO BID 60 caps 6RF 30 days K21.9 - Gastro-esophageal reflux disease without esophagitis, R10.13 - Epigastric pain Coding Level of Care Code Est Pt Level 3 (90314) Diagnoses Epigastric pain R10.13 GERD (gastroesophageal reflux disease) K21.9
[2025-04-16 15:53] VITALS: BP 116/64; PULSE 87; BMI 29.3
--- OUTSIDE RECORDS SUMMARY | 2025-04-16 20:03 | XMS_ITS | Encounter Summary ---
Demographics Address [address] [place] [address] Home Phone Mobile Phone Preferred Language Setswana Marital Status Unknown Spiritism Affiliation Unknown Race Unknown Ethnic Group Unknown Author Organization [facility] Address [address] [place] [address] Phone Care Team Providers Care Carton Maker Name Role Phone Jennifer Gannon MD Primary Care Provider [phone] Encounter Details Date Type Department Care Team (Late st Contact Info) Description 06/23/2015 Documentation [facility] Family Medicine [address] [place] [address] Family Medicine, Physician [facility] [place] [phone] Social History Tobacco Use Types Packs/Day Years [...] on filedocumented in this encounter Care Teams Carton Maker Relationship Specialty Start Date End Date Jennifer Gannon MD [address] [place] [id number] PCP - General Pediatrics 11/16/19 08/30/24 documented as of this encounter
--- OUTSIDE RECORDS SUMMARY | 2025-04-16 20:03 | XMS_ITS | Encounter Summary ---
Demographics Address [address] [place] [address] Home Phone Mobile Phone Preferred Language Hebrew Marital Status Unknown Taoist Affiliation Unknown Race Unknown Ethnic Group Unknown Author Organization [facility] Address [address] [place] [address] Phone Care Team Providers Care Race Car Mechanic Name Role Phone Jennifer Gannon MD Primary Care Provider [phone] Encounter Details Date Type Department Care Team (Late st Contact Info) Description 06/18/2015 Documentation [facility] [place] [address] [place] [address] Family Medicine, Physician [facility] [place] [phone] Social History Tobacco Use Types Packs/Day Years [...] on filedocumented in this encounter Care Teams Race Car Mechanic Relationship Specialty Start Date End Date Jennifer Gannon MD [address] [place] [id number] PCP - General Pediatrics 11/16/19 08/30/24 documented as of this encounter
--- OUTSIDE RECORDS SUMMARY | 2025-04-16 20:04 | XMS_ITS | Clinical Summary ---
Demographics Address [address] [place] [address] Home Phone Mobile Phone Preferred Language Qatari Marital Status Unknown Congregational Affiliation Unknown Race Unknown Ethnic Group Unknown Author Organization [facility] Address [address] [place] [address] Phone Care Team Providers Care Test Baker Name Role Phone Unavailable Primary Care Provider [...] Other No family histo ry of Sudden /[place] under 55, No family history of Hyperlipidemia [...] 10/19/2023, 06/04/2022 Procedures * Due to [place] [employer] law, this organization might not be sharing sensitive test results. Procedure Name Priority Date/Time Associated Diagnosis Comments CHLAMYDIA AND GONORRHEA, AMPLIFIED Routine 10/19/2023 1:49 PM EDT Encounter for screening examination for chlamydial infection from Last 3 Months or Most Recently Relevant to Health Maintenance Results * Due to [place] [employer] law, this organization might not be sharing sensitive test results. * Chlamydia and Gonorrhea, Amplified (10/19/2023 1:49 PM EDT) C trach ROMERO Negative Negative [facility] N gonorrhoeae ROMERO Negative Negative [facility] Urine (Urine) 10/19/2023 1:4 9 PM EDT 10/19/2023 Comment:UR Narrative [facility] - 10/20/2023 11:06 PM EDT Performed at: - [facility] [address] [id number] Echo Tech: Divina Cabrera MD, Phone: [phone] us Jennifer Gannon MD LAB MICROBIOLOGY - GENERAL OR DERABLES Final Result [facility] [address] [place] [address] from Last 3 Months or Most Recently Relevant to Health Maintenance
--- OUTSIDE RECORDS SUMMARY | 2025-04-16 20:04 | XMS_ITS | Encounter Summary ---
Demographics Address [address] [place] [address] Home Phone Mobile Phone Preferred Language Croatian Marital Status Unknown Anabaptism Affiliation Unknown Race Unknown Ethnic Group Unknown Author Organization [facility] Address [address] [place] [address] Phone Care Team Providers Care Vice President Industrial Relations Name Role Phone Jennifer Gannon MD Primary Care Provider [phone] Encounter Details Date Type Department Care Team (Late st Contact Info) Description 02/03/2017 Conversion Encounter [facility] [address] [place] [address] Social History Tobacco Use Types Packs/Day Years [...] on filedocumented in this encounter Care Teams Vice President Industrial Relations Relationship Specialty Start Date End Date Jennifer Gannon MD [address] [place] [address] PCP - General Pediatrics 11/16/19 08/30/24 documented as of this encounter
--- OUTSIDE RECORDS SUMMARY | 2025-04-16 20:04 | XMS_ITS | Encounter Summary ---
Demographics Address [address] [place] [address] Home Phone Mobile Phone Preferred Language Armenian Marital Status Unknown Quaker Affiliation Unknown Race Unknown Ethnic Group Unknown Author Organization [facility] Address [address] [place] [address] Phone Care Team Providers Care Steel Box Toe Inserter Name Role Phone Jennifer Gannon MD Primary Care Provider [phone] Encounter Details Date Type Department Care Team (Late st Contact Info) Description 03/06/2012 Documentation [facility] [place] [address] [place] [address] Family Medicine, Physician [facility] [place] [phone] Social History Tobacco Use Types Packs/Day Years [...] on filedocumented in this encounter Care Teams Steel Box Toe Inserter Relationship Specialty Start Date End Date Jennifer Gannon MD [address] [place] [address] PCP - General Pediatrics 11/16/19 08/30/24 documented as of this encounter
== END 2025-04-16 17:29 ==
LOC: HO.HGI 15:50
PROVIDERS: PCP Pediatrics; Visit Provider Nurse Practitioner
DX: R10.13 Epigastric pain (principal); K21.9 Gastro-esophageal reflux disease without esophagitis
CPT/HCPCS: 99213

== ENCOUNTER → 2025-04-16 15:49 | Outpatient (BNVA) | payer OTHER, SELFPAY | PROVIDERS: PCP Pediatrics; Visit Provider Nurse Practitioner | DX: R10.13 Epigastric pain (principal); K21.9 Gastro-esophageal reflux disease without esophagitis | CPT/HCPCS: 99212 ==

== ENCOUNTER 2025-04-30 09:06 | Day surgery (SDC) | payer OTHER, SELFPAY ==
--- OUTSIDE RECORDS SUMMARY | 2025-03-26 08:30 | XMS_ITS | Encounter Summary ---
Demographics Address [address] [place] [address] Home Phone Mobile Phone Preferred Language Senegalese Marital Status Unknown Roman Catholic Affiliation Unknown Race Unknown Ethnic Group Unknown Author Organization [facility] Address [address] [place] [address] Phone Care Team Providers Care Core Paster Name Role Phone Jennifer Gannon MD Primary Care Provider [phone] Encounter Details Date Type Department Care Team (Late st Contact Info) Description 06/23/2015 Documentation [facility] [place] [address] [place] [address] Family Medicine, Physician [facility] [place], [place] [phone] Social History Tobacco Use Types Packs/Day Years [...] on filedocumented in this encounter Care Teams Core Paster Relationship Specialty Start Date End Date Jennifer Gannon MD [address] [place] [address] PCP - General Pediatrics 11/16/19 08/30/24 documented as of this encounter
--- OUTSIDE RECORDS SUMMARY | 2025-03-26 08:30 | XMS_ITS | Encounter Summary ---
Demographics Address [address] [place] [address] Home Phone Mobile Phone Preferred Language Togolese Marital Status Unknown Confucianism Affiliation Unknown Race Unknown Ethnic Group Unknown Author Organization [facility] Address [address] [place] [address] Phone Care Team Providers Care Teacher Early Childhood Development Name Role Phone Jennifer Gannon MD Primary Care Provider [phone] Encounter Details Date Type Department Care Team (Late st Contact Info) Description 06/18/2015 Documentation [facility] [place] [address] [place] [address] Family Medicine, Physician [facility] [place] [id number] Social History Tobacco Use Types Packs/Day Years [...] on filedocumented in this encounter Care Teams Teacher Early Childhood Development Relationship Specialty Start Date End Date Jennifer Gannon MD [address] [place] [address] PCP - General Pediatrics 11/16/19 08/30/24 documented as of this encounter
--- OUTSIDE RECORDS SUMMARY | 2025-03-26 08:31 | XMS_ITS | Clinical Summary ---
Demographics Address [address] [place] [address] Home Phone Mobile Phone Preferred Language Macedonian Marital Status Unknown Yazidi Affiliation Unknown Race Unknown Ethnic Group Unknown Author Organization [facility] Address [address] [place] [address] Phone Care Team Providers Care Plastic Maker Name Role Phone Unavailable Primary Care Provider [...] Completed 10/19/2023, 06/04/2022 Procedures * Due to [place] [employer] law, this organization might not be sharing sensitive test results. Procedure Name Priority Date/Time Associated Diagnosis Comments CHLAMYDIA AND GONORRHEA, AMPLIFIED Routine 10/19/2023 1:49 PM EDT Encounter for screening examination for chlamydial infection from Last 3 Months or Most Recently Relevant to Health Maintenance Results * Due to [place] [employer] law, this organization might not be sharing sensitive test results. * Chlamydia and Gonorrhea, Amplified (10/19/2023 1:49 PM EDT) C trach ROMERO Negative Negative [facility] N gonorrhoeae ROMERO Negative Negative [facility] Urine (Urine) 10/19/2023 1:4 9 PM EDT 10/19/2023 Comment:UR Narrative [facility] - 10/20/2023 11:06 PM EDT Performed at: - [facility] [address] [id number] Journalism Professor: Divina Cabrera MD, Phone: [phone] us Jennifer Gannon MD LAB MICROBIOLOGY - GENERAL OR DERABLES Final Result [facility] [address] [place] [address] from Last 3 Months or Most Recently Relevant to Health Maintenance
--- OUTSIDE RECORDS SUMMARY | 2025-03-26 08:31 | XMS_ITS | Encounter Summary ---
Demographics Address [address] [place] [address] Home Phone Mobile Phone Preferred Language Indonesian Marital Status Unknown Nondenominational Affiliation Unknown Race Unknown Ethnic Group Unknown Author Organization [facility] Address [address] [place] [address] Phone Care Team Providers Care Time Clock Mechanic Name Role Phone Jennifer Gannon MD Primary Care Provider [phone] Encounter Details Date Type Department Care Team (Late st Contact Info) Description 02/03/2017 Conversion Encounter [facility] [address] [place] [address] Social History Tobacco Use Types Packs/Day Years [...] on filedocumented in this encounter Care Teams Time Clock Mechanic Relationship Specialty Start Date End Date Jennifer Gannon MD [address] [place] [address] PCP - General Pediatrics 11/16/19 08/30/24 documented as of this encounter
--- OUTSIDE RECORDS SUMMARY | 2025-03-26 08:31 | XMS_ITS | Encounter Summary ---
Demographics Address [address] [place] [address] Home Phone Mobile Phone Preferred Language Icelandic Marital Status Unknown Hinduism Affiliation Unknown Race Unknown Ethnic Group Unknown Author Organization [facility] Address [address] [place] [address] Phone Care Team Providers Care Director Of Database Marketing Name Role Phone Jennifer Gannon MD Primary Care Provider [phone] Encounter Details Date Type Department Care Team (Late st Contact Info) Description 03/06/2012 Documentation [facility] Family Medicine [address] [place] [address] Family Medicine, Physician [facility] [place] [phone] Social History Tobacco Use Types Packs/Day Years [...] on filedocumented in this encounter Care Teams Director Of Database Marketing Relationship Specialty Start Date End Date Jennifer Gannon MD [address] [place] [address] PCP - General Pediatrics 11/16/19 08/30/24 documented as of this encounter
--- NOTE | 2025-04-25 10:57 | P.CONAN_ITS ---
Documented by User: Shaila Ureña NP 04/25/25 10:57 HPI - Anesthesia Eval Consult details Narrative: 19 yr old female for upper endoscopy +Marijuana use [facility] Active Problems Active Problems: All Active Problems Elevated serum glucose (Acute) GERD (gastroesophageal reflux disease) (Acute) Nausea and vomiting in adult (Acute) Epigastric pain (Acute) Past Medical History Medical History COVID-19 GERD (gastroesophageal reflux disease) Family History Family History Maternal Aunt Liver cancer Social History Social History Alcohol intake: never Patient Tobacco Use Status: Never used Tobacco Use of substances other than those prescribed or required for medical reasons: No Substance Use Type: Marijuana Advance Directives: No Advance Directives Information Provided: Yes Meds Allergies Allergy/AdvReac Type Severity Reaction Status Date / Time No Known Allergies Allergy Verified 04/16/25 15:56 Home Medications ?Medication ?Instructions ?Recorded ?Confirmed ?Last Taken ?Type cholecalciferol (vitamin D3) 25 25 mcg PO DAILY 04/26/25 Unknown History mcg (1,000 unit) tablet Documented by User: Emiliano Campa MD 04/30/25 11:06 [facility] Past Medical History Medical History COVID-19 GERD (gastroesophageal reflux disease) Functional capacity: independent ambulation Family History Family History Maternal Aunt Liver cancer Family history of problems with anesthesia: No Surgical History History of Problems with Anesthesia: No Social History Social History Alcohol intake: never Patient Tobacco Use Status: Never used Tobacco Use of substances other than those prescribed or required for medical reasons: No Substance Use Type: Marijuana Advance Directives: No Advance Directives Information Provided: Yes Meds Allergies Allergy/AdvReac Type Severity Reaction Status Date / Time No Known Allergies Allergy Verified 04/16/25 15:56 Home Medications ?Medication ?Instructions ?Recorded ?Confirmed ?Last Taken ?Type cholecalciferol (vitamin D3) 25 25 mcg PO DAILY 04/26/25 Unknown History mcg (1,000 unit) tablet Exam Exam Date and Time: 04/30/25 Airway Mallampati Class: II Loose/Missing/Broken Teeth: No Heart: normal Lungs: normal Other: normal Assessment and Plan Assessment Anesthesia Assessment: Anesthesia Plan Discussed and Chart Reviewed Final Anesthetic Review Family History of Problems with Anesthesia: No History of Problems with Anesthesia: No NPO: Yes ASA Class: II Final Preanesthetic Review: No Changes in Pt Med Stat, Meds/Allgs Chart Reviewed, Consent Obtained/Reviewed and Anes Risks/Benef Reviewed Patient Risk: Low Procedure Risk: Low Anesthetic Plan Anesthetic Plan: MAC: Disposition: Standard PACU
[2025-04-26 10:05] VITALS: BMI 29.3
--- NOTE | 2025-04-30 09:52 | MHC.SHP ---
Pre-Procedural Eval Section A - 24 Hr Update-Section A only Date of Service: 04/30/25 The patient is an INPATIENT: No The patient has been examined within 24 hours of the surgical procedure. The History & Physical has been completed within 30 days and I have reviewed it.: Yes Section B - Complete if H&P > 30 days Chief Complaint: Nausea with vomiting,epigastric pain Allergies: Allergies Allergy/AdvReac Type Severity Reaction Status Date / Time No Known Allergies Allergy Verified 04/16/25 15:56 Plan Diagnosis/Plan: Unchanged I have reviewed the history and physical and performed a pertinent physical examination on my patient. No changes have occurred unless specified. Time Spent With Patient Time: Total time managing care of this patient today ____ minutes.
[2025-04-30 10:15] LABS: UPreg QC Valid YES
[2025-04-30 10:17] VITALS: BP 109/62; PULSE 85; RESP 20; TEMP 36.6; O2SAT 97
[2025-04-30] MEDS: Lactated Ringers 1,000 ML 100 ML IVCONT (10:18)
[2025-04-30 11:23] VITALS: BP 110/70; PULSE 65; RESP 16; TEMP 36.1; O2SAT 99
--- NOTE | 2025-04-30 11:26 | P.OP_ITS ---
Operative Note Operative Note Date of Service: 04/30/25 Narrative: Procedure: Esophagogastroduodenoscopy Endoscopist: Siomara Yanes MD Indication: Abd pain, N,V Anesthesia Provider: Dr Campa Anesthesia Type: MAC EGD Procedure:?? The procedure, indications, preparation and potential complications were reviewed with the patient, who indicated understanding and gave written informed consent to proceed. A physical exam was performed. The endoscope was introduced through the mouth, and advanced to the second part of duodenum. The mucosa was carefully examined on slow withdrawal of the endoscope. The patient tolerated the procedure well. There were no immediate complications.? ? EGD Findings:? * Esophagus:? Normal mucosa noted in the entire esophagus. The Z line was at 38 cm. Middle and lower esophagus forceps biopsies were obtained to rule out eosinophilic esophagitis. * Stomach:? Normal mucosa was noted in the stomach. Retroflexion was performed in the cardia. Random cold forceps biopsies were taken from the stomach. * Duodenum:? Normal mucosa was noted in the whole of the examined duodenum. Cold forceps biopsies were taken from duodenal bulb and second portion of the duodenum to rule out celiac sprue. ? EGD Impressions:? * Normal esophagus (biopsy) * Normal stomach (biopsy) * Normal duodenum (biopsy) ?? Recommendations:?? * Follow biopsy results. Our office will call or send a letter with results within 7-10 days. * if biopsies negative, consider DDx such as functional biliary pain, SOD, cyclical vomiting etc * Avoid NSAIDs. Above has been reviewed with the patient.
[2025-04-30 11:30] VITALS: BP 84/44; PULSE 85; RESP 16; O2SAT 99
[2025-04-30 11:45] VITALS: BP 94/52; PULSE 85; RESP 16; TEMP 36.1; O2SAT 99
== END 2025-04-30 12:59 | disposition home or self-care (01) ==
PROVIDERS: Nurse Practitioner; Visit Provider Internal Medicine
PROC: 0DJ08ZZ Inspection of Upper Intestinal Tract, Via Natural or Artificial Opening Endoscopic (ICD-10-PCS; CPT 43235; principal; 2025-04-30 11:40)
DX: R10.13 Epigastric pain (principal); R11.2 Nausea with vomiting, unspecified; K21.9 Gastro-esophageal reflux disease without esophagitis
CPT/HCPCS: 43239; 81025; 88305; 88313; 88342; J2003; J2704; J3010

== ENCOUNTER → 2025-04-30 09:06 | Outpatient (BNV) | payer OTHER, SELFPAY | PROVIDERS: Visit Provider Internal Medicine | DX: R11.2 Nausea with vomiting, unspecified (principal); R10.13 Epigastric pain | CPT/HCPCS: 43239 ==

== ENCOUNTER 2025-05-28 14:46 | Outpatient (AMB) | payer OTHER, SELFPAY ==
[2025-05-28 14:51] VITALS: BP 105/55; PULSE 69; BMI 31.5
--- NOTE | 2025-05-28 14:51 | A.OFFVIS_ITS ---
Vital Signs 05/28/25 14:51 Height 5 ft 2 in Weight 172 lb 6.424 oz BMI 31.5 BP 105/55 L Blood Pressure Location Lt brachial Position Sitting Pulse 69 Intake Visit Reasons: s/p EGD Intake Note: Radha returns to in office follow up s/p EGD. CC: Patient reports doing well. Denies any GI symptoms. Parts Identifier Required: No Accompanied by: Self / Same As Patient Allergies No Known Allergies Allergy (Verified 05/28/25 14:58) HPI HPI s/p EGD: Details: Assessment & Plan (1) Epigastric pain: Code(s): R10.13 - Epigastric pain Category: Medical (2) GERD (gastroesophageal reflux disease): Code(s): K21.9 - Gastro-esophageal reflux disease without esophagitis Category: Medical Plan SHE IS CURRENTLY ON OMEPRAZOLE AND CARAFATE. Fortunately, her symptoms have improved by about 55% with the Carafate. I am glad of this since we did not seem to be progressing with the omeprazole. This has also helped with the diarrhea. The EGD may be helpful in determining why we continue to need this medication. She does have gallbladder polyps but no sign of gallstones or severe gallbladder dysfunction. Obviously peptic ulcer disease could be in the differential diagnosis. She is aware of her upcoming EGD and I will see her after that. Medications: Refilled sucralfate (Carafate) 2 grams (2 x 1 gram) PO QNOON 30 tabs 6RF omeprazole 20 mg PO BID 60 caps 6RF 30 days K21.9 - Gastro-esophageal reflux disease without esophagitis, R10.13 - Epigastric pain EGD EGD Findings:? * Esophagus:? Normal mucosa noted in the entire esophagus. The Z line was at 38 cm. Middle and lower esophagus forceps biopsies were obtained to rule out eosinophilic esophagitis. * Stomach:? Normal mucosa was noted in the stomach. Retroflexion was performed in the cardia. Random cold forceps biopsies were taken from the stomach. * Duodenum:? Normal mucosa was noted in the whole of the examined duodenum. Cold forceps biopsies were taken from duodenal bulb and second portion of the duodenum to rule out celiac sprue. ? EGD Impressions:? * Normal esophagus (biopsy) * Normal stomach (biopsy) * Normal duodenum (biopsy)?? Recommendations:?? * Follow biopsy results. Our office will call or send a letter with results within 7-10 days. * if biopsies negative, consider DDx such as functional biliary pain, SOD, cyclical vomiting etc * Avoid NSAIDs. BIOPSY Received: 04/30/25 Diagnosis A. Duodenum, biopsy: Duodenal mucosa within normal limits. B. Stomach, random, biopsy: Antral-type and oxyntic mucosa with mild chronic inactive inflammation; no Helicobacter organisms seen. C. Esophagus, lower, biopsy: Squamous epithelium within normal limits; no infl ammation seen. D. Esophagus, middle, biopsy: Squamous epithelium within normal limits; no inflammation seen PFSH Medical History COVID-19 GERD (gastroesophageal reflux disease) Surgical History History of esophagogastroduodenoscopy (EGD) Family History Maternal Aunt Liver cancer Social History Alcohol intake: never Patient Tobacco Use Status: Never used Tobacco Substance Use Type: Marijuana Physical Exam Vital Signs: Last Vital Signs Pulse 69 05/28/25 14:51 BP 105/55 L 05/28/25 14:51 BMI result Body Mass Index 31.5 Results Reviewed Results Reviewed: EGD EGD Findings:? * Esophagus:? Normal mucosa noted in the entire esophagus. The Z line was at 38 cm. Middle and lower esophagus forceps biopsies were obtained to rule out eosinophilic esophagitis. * Stomach:? Normal mucosa was noted in the stomach. Retroflexion was performed in the cardia. Random cold forceps biopsies were taken from the stomach. * Duodenum:? Normal mucosa was noted in the whole of the examined duodenum. Cold forceps biopsies were taken from duodenal bulb and second portion of the duodenum to rule out celiac sprue. ? EGD Impressions:? * Normal esophagus (biopsy) * Normal stomach (biopsy) * Normal duodenum (biopsy)?? Recommendations:?? * Follow biopsy results. Our office will call or send a letter with results within 7-10 days. * if biopsies negative, consider DDx such as functional biliary pain, SOD, cyclical vomiting etc * Avoid NSAIDs. BIOPSY Received: 04/30/25 Diagnosis A. Duodenum, biopsy: Duodenal mucosa within normal limits. B. Stomach, random, biopsy: Antral-type and oxyntic mucosa with mild chronic inactive inflammation; no Helicobacter organisms seen. C. Esophagus, lower, biopsy: Squamous epithelium within normal limits; no inflammation seen. D. Esophagus, middle, biopsy: Squamous epithelium within normal limits; no inflammation seen Assessment & Plan Assessment & Plan (1) GERD (gastroesophageal reflux disease): Code(s): K21.9 - Gastro-esophageal reflux disease without esophagitis Category: Medical (2) Nausea and vomiting in adult: Code(s): R11.2 - Nausea with vomiting, unspecified Category: Medical Plan SHE IS CURRENTLY ON OMEPRAZOLE AND CARAFATE. Subjective Patient presents to review recent endoscopy results. Reports feeling well on current medications and states heartburn symptoms are controlled. Previously treated with omeprazole and sucralfate (Carafate). Objective - Endoscopy results reviewed: normal exam. Assessment & Plan Heartburn: Endoscopy normal. Symptoms well controlled on current therapy. - Continue omeprazole and sucralfate (Carafate) as currently prescribed. - Routine follow-up in six months. Medications: Refilled sucralfate (Carafate) 2 grams (2 x 1 gram) PO QNOON 30 tabs 6RF omeprazole 20 mg PO BID 60 caps 6RF 30 days K21.9 - Gastro-esophageal reflux disease without esophagitis, R10.13 - Epigastric pain Coding Level of Care Code Est Pt Level 3 (31743) Diagnoses GERD (gastroesophageal reflux disease) K21.9 Nausea and vomiting in adult R11.2
--- OUTSIDE RECORDS SUMMARY | 2025-05-28 20:52 | XMS_ITS | Encounter Summary ---
Demographics Address [address] [place] [address] Home Phone Mobile Phone Preferred Language Syriac Marital Status Unknown Synagogue Affiliation Unknown Race Unknown Ethnic Group Unknown Author Organization [facility] Address [address] [place] [address] Phone Care Team Providers Care Sales And Service Associate Name Role Phone Jennifer Gannon MD Primary Care Provider [phone] Encounter Details Date Type Department Care Team (Late st Contact Info) Description 06/23/2015 Documentation [facility] [place] [facility] [address] [place] [address] Family Medicine, Physician [facility] [place] [id number] Social History Tobacco Use Types Packs/Day Years [...] on filedocumented in this encounter Care Teams Sales And Service Associate Relationship Specialty Start Date End Date Jennifer Gannon MD [address] [place] [id number] PCP - General Pediatrics 11/16/19 08/30/24 documented as of this encounter
--- OUTSIDE RECORDS SUMMARY | 2025-05-28 20:52 | XMS_ITS | Encounter Summary ---
Demographics Address [address] [place] [address] Home Phone Mobile Phone Preferred Language Mohawk Marital Status Unknown Jehovah'S Witness Affiliation Unknown Race Unknown Ethnic Group Unknown Author Organization [facility] Address [address] [place] [address] Phone Care Team Providers Care Tower Air Traffic Control Specialist Name Role Phone Jennifer Gannon MD Primary Care Provider [phone] Encounter Details Date Type Department Care Team (Late st Contact Info) Description 06/18/2015 Documentation [facility] [place] [facility] [address] [place] [address] Family Medicine, Physician [facility] [place] [id number] Social History Tobacco Use Types Packs/Day Years [...] on filedocumented in this encounter Care Teams Tower Air Traffic Control Specialist Relationship Specialty Start Date End Date Jennifer Gannon MD [address] [place] [id number] PCP - General Pediatrics 11/16/19 08/30/24 documented as of this encounter
--- OUTSIDE RECORDS SUMMARY | 2025-05-28 20:53 | XMS_ITS | Clinical Summary ---
Demographics Address [address] [place] [address] Home Phone Mobile Phone Preferred Language Brazilian Marital Status Unknown Scientologist Affiliation Unknown Race Unknown Ethnic Group Unknown Author Organization [facility] Address [address] [place] [address] Phone Care Team Providers Care Ordnance Equipment Worker Name Role Phone Unavailable Primary Care Provider [...] Other No family histo ry of Sudden /[place] under 55, No family history of Hyperlipidemia [...] Completed 10/19/2023, 06/04/2022 Procedures * Due to [place] CrowdStrike law, this organization might not be sharing sensitive test results. Procedure Name Priority Date/Time Associated Diagnosis Comments CHLAMYDIA AND GONORRHEA, AMPLIFIED Routine 10/19/2023 1:49 PM EDT Encounter for screening examination for chlamydial infection from Last 3 Months or Most Recently Relevant to Health Maintenance Results * Due to [place] CrowdStrike law, this organization might not be sharing sensitive test results. * Chlamydia and Gonorrhea, Amplified (10/19/2023 1:49 PM EDT) C trach ROMERO Negative Negative [facility] N gonorrhoeae ROMERO Negative Negative [facility] Urine (Urine) 10/19/2023 1:4 9 PM EDT 10/19/2023 Comment:UR Narrative [facility] - 10/20/2023 11:06 PM EDT Performed at: - [facility] [address] [id number] Systems Development Consultant: Divina Cabrera MD, Phone: [phone] us Jennifer Gannon MD LAB MICROBIOLOGY - GENERAL OR DERABLES Final Result [facility] [address] [place] [address] from Last 3 Months or Most Recently Relevant to Health Maintenance
--- OUTSIDE RECORDS SUMMARY | 2025-05-28 20:53 | XMS_ITS | Encounter Summary ---
Demographics Address [address] [place] [address] Home Phone Mobile Phone Preferred Language Georgian Marital Status Unknown Mosque Affiliation Unknown Race Unknown Ethnic Group Unknown Author Organization [facility] Address [address] [place] [phone] Phone Care Team Providers Care Wheat Buyer Name Role Phone Jennifer Gannon MD Primary Care Provider [phone] Encounter Details Date Type Department Care Team (Late st Contact Info) Description 02/03/2017 Conversion Encounter [facility] [address] [place] [address] Social History Tobacco Use Types Packs/Day Years [...] on filedocumented in this encounter Care Teams Wheat Buyer Relationship Specialty Start Date End Date Jennifer Gannon MD [address] [place] [address] PCP - General Pediatrics 11/16/19 08/30/24 documented as of this encounter
--- OUTSIDE RECORDS SUMMARY | 2025-05-28 20:53 | XMS_ITS | Encounter Summary ---
Demographics Address [address] [place] [address] Home Phone Mobile Phone Preferred Language Divehi Marital Status Unknown Spiritism Affiliation Unknown Race Unknown Ethnic Group Unknown Author Organization [facility] Address [address] [place] [address] Phone Care Team Providers Care President Ceo & Founder Name Role Phone Jennifer Gannon MD Primary Care Provider [phone] Encounter Details Date Type Department Care Team (Late st Contact Info) Description 03/06/2012 Documentation [facility] [place] [facility] [address] [place] [address] Family Medicine, Physician [facility] [place] [id number] Social History Tobacco Use Types Packs/Day Years [...] on filedocumented in this encounter Care Teams President Ceo & Founder Relationship Specialty Start Date End Date Jennifer Gannon MD [address] [place] [id number] PCP - General Pediatrics 11/16/19 08/30/24 documented as of this encounter
== END 2025-05-28 15:15 | disposition home or self-care (01) ==
LOC: HO.HGI 14:47
PROVIDERS: Visit Provider Nurse Practitioner
DX: K21.9 Gastro-esophageal reflux disease without esophagitis (principal); R11.2 Nausea with vomiting, unspecified
CPT/HCPCS: 99213

== ENCOUNTER → 2025-05-28 14:46 | Outpatient (BNVA) | payer OTHER, SELFPAY | PROVIDERS: Visit Provider Nurse Practitioner | DX: K21.9 Gastro-esophageal reflux disease without esophagitis (principal); R10.13 Epigastric pain; R11.2 Nausea with vomiting, unspecified | CPT/HCPCS: 99212 ==